=== PATIENT | male | born 1940 | race Caucasian/White ===

== ENCOUNTER 2017-12-25 23:57 | Inpatient (IN) ==
[2017-12-26] MEDS ORDERED: Aspirin 81 MG TAB.CHEW PO ONE (00:10)
[2017-12-26 00:24] LABS: Basophils % 0.1 %; Hematocrit 44.4 % (37.5-50.1); Hemoglobin 14.8 g/dL (12.9-16.9); Immature Granulocytes % 0.4 % (0-4); Lymphocytes # 2.4 K/mcL (0.6-4.6); Lymphocytes % 18.8 %; Mean Corpuscular HGB Conc 33.3 g/dL (31.6-35.5); Mean Corpuscular Hemoglobin 30.8 pg (28.0-33.3); Mean Corpuscular Volume 92.3 fL (83.0-100.0); Mean Platelet Volume 10.6 fL (9.4-12.4); Monocytes # 0.9 K/mcL (0.0-1.3); Monocytes % 6.6 %; Neutrophils # 9.5 K/mcL (1.6-8.9); Platelet Count 272 K/mcL (140-400); Red Blood Count 4.81 M/mcL (4.19-5.50); Red Cell Distribution Width 14.3 % (11.5-14.5); Segmented Neutrophils % 74.1 %
--- NOTE | 2017-12-26 00:24 | Emergency Department Note ---
Disposition Clinical Impression: New onset atrial fibrillation Disposition: Admitted As Inpatient Condition: Fair Time of Disposition: 06:54 General Adult HPI - General Chief complaint: ED Chest Pain Stated complaint: "Think I am having Heart Attack" Time Seen by Provider: 12/25/17 23:59 Source: patient Mode of arrival: EMS Limitations: no limitations Nursing Notes Reviewed: Yes Vital Signs Reviewed: Yes - History of Present Illness HPI Narrative: Patient is a 77-year-old male with a past medical history of diabetes, TIA, HTN , and NC with one cardiac stent presenting to the emergency department for evaluation of sudden onset dyspnea and chest pain that started approximately 2200 yesterday, 2.5 hours ago. The patient states that he took 2 of his nitroglycerin and called the squad and and route the patient states his chest pain resolved, however he continues to have shortness of breath. The patient states that his chest pain was substernal, tight, 5/10, no radiation and no nausea or diaphoresis. He states it feels very similar to when he has had a heart attack in the past and had a stent placed. States prior to this occurring at 20/200 he felt fine. Denies any history of atrial fibrillation. States she is recently and seen at [facility] and [place], [place]. There he was being evaluated for a chronic headache and vision changes in which they are doing a biopsy of his temporal artery to evaluate him for temporal arterial arteritis. They state that he has also been on daily steroids pending the results of this biopsy. Pain Scale: 0 - Related Data Allergies Allergy/AdvReac Type Severity Reaction Status Date / Time acetaminophen [From Vicodin] Allergy Headache Verified 12/26/17 04:44 hydrocodone [From Vicodin] Allergy Headache Verified 12/26/17 04:44 simvastatin Allergy Nausea Verified 12/26/17 04:44 All systems ED: reviewed and negative except as stated. Review of Systems: As Per HPI Constitutional: Denies: fever, chills Cardiovascular: Reports: chest pain, palpitations, dyspnea on exertion. Denies : edema, syncope, paroxysmal nocturnal dyspnea Respiratory: Reports: dyspnea. Denies: cough, wheezes, hemoptysis Gastrointestinal: Denies: abdominal pain, nausea, vomiting Musculoskeletal: Denies: back pain Past Medical History - Past Medical History Attestation: Yes The following information was validated with the patient. Medical history: Reports: diabetes, hypertension, myocardial infarction, TIA Psychiatric history: Reports: no psych history - Social History Smoking Status: Former smoker Smokeless Tobacco Status: No Alcohol use: Reports: none Drug use: Reports: none Physical Exam CONSTITUTIONAL: A&O X 3, heart rate is in the 150s and is showing an irregular rhythm on monitor. His blood pressure stable in the 150/90s. Currently 98% on 2 L nasal cannula oxygen. HEAD: Normocephalic; atraumatic EYES: PERRL, no scleral icterus NOSE: The nose is normal in appearance without rhinorrhea NECK: No JVD or distended neck veins RESP: Normal chest excursion with respiration; breath sounds clear and equal bilaterally; no wheezes, rhonchi, or rales CARD: Irregular rhythm, without murmurs, rub or gallop ABD: Non-distended; non-tender, soft, without rigidity, rebound or guarding,no pulsatile mass CHEST: No pain with palpation SKIN: Normal for age and race; warm and dry without diaphoresis ; no apparent lesions EXTREMITIES: Pulses are 2 plus and equal times 4 extremities, no calf muscle pain. Mild bilateral 1+ pitting edema. - General Limitations: no limitations General appearance: alert, in no apparent distress Course Course Narrative: Discussed with the patient plan at this times to start him on the Cardizem drip will be initiated with a bolus. After this patient's heart rate improved to the 90s. His symptoms improved. His lab work returned his d-dimer was elevated , troponin was 0.05 patient underwent a CTA of the chest to rule out pulmonary embolism. This is negative for pulmonary embolism. Patient was given a dose of Lovenox for anticoagulation for his atrial fibrillation and admitted to the hospitalist accepted by Dr. Arana. Vital Signs Temperature 98.2 F 12/26/17 00:04 Pulse Rate 152 12/26/17 00:04 Respiratory Rate 22 12/26/17 00:04 Blood Pressure 157/92 12/26/17 00:04 O2 Sat by Pulse Oximetry 94 12/26/17 00:04 Temperature 97.6 F 12/26/17 04:25 Pulse Rate 98 12/26/17 04:25 Respiratory Rate 16 12/26/17 04:25 Blood Pressure 139/90 12/26/17 04:25 O2 Sat by Pulse Oximetry 96 12/26/17 04:25 Oxygen Delivery Oxygen Delivery Nasal Cannula Medical Decision Making - Medical Records Medical records reviewed: Yes I reviewed the patient's medical records. - Lab Data Lab results reviewed: Yes I reviewed the patient's lab results. Result diagrams: 12/26/17 00:10 12/26/17 00:10 Lab Results 12/26/17 12/26/17 12/26/17 Range/Units 00:10 00:10 00:10 WBC 12.8 H (4.3-11.1) K/mcL RBC 4.81 (4.19-5.50) M/mcL Hgb 14.8 (12.9-16.9) g/dL Hct 44.4 (37.5-50.1) % MCV 92.3 (83.0-100.0) fL MCH 30.8 (28.0-33.3) pg MCHC 33.3 (31.6-35.5) g/dL RDW 14.3 (11.5-14.5) % Plt Count 272 (140-400) K/mcL MPV 10.6 (9.4-12.4) fL Immature Gran % 0.4 (0-4) % Seg Neutrophils % 74.1 % Lymphocytes % 18.8 % Monocytes % 6.6 % Eosinophils % 0.0 % Basophils % 0.1 % Neutrophils # 9.5 H (1.6-8.9) K/mcL Lymphocytes # 2.4 (0.6-4.6) K/mcL Monocytes # 0.9 (0.0-1.3) K/mcL Eosinophils # 0.0 (0.0-0.6) K/mcL Basophils # 0.0 (0.0-0.2) K/mcL PT 10.4 (9.4-12.1) Seconds INR 0.9 APTT 30.6 (26.0-36.0) Seconds D-Dimer 1148 H (0-500) ng/mLFEU Sodium (136-145) mEq/L Potassium (3.5-5.1) mEq/L Chloride (98-107) mEq/L Carbon Dioxide (23-29) mEq/L BUN (8-23) mg/dL Creatinine (0.70-1.30) mg/dL Est GFR ( Amer) (> 60) Est GFR (Non-Af Amer) (> 60) BUN/Creatinine Ratio (6-26) Glucose (70-105) mg/dL Calculated Osmolality (280-300) Calcium (8.6-10.3) mg/dL Troponin I (< 0.04) ng/mL B-Natriuretic Peptide 341 H (Less than 100) pg/mL 12/26/17 Range/Units 00:10 WBC (4.3-11.1) K/mcL RBC (4.19-5.50) M/mcL Hgb (12.9-16.9) g/dL Hct (37.5-50.1) % MCV (83.0-100.0) fL MCH (28.0-33.3) pg MCHC (31.6-35.5) g/dL RDW (11.5-14.5) % Plt Count (140-400) K/mcL MPV (9.4-12.4) fL Immature Gran % (0-4) % Seg Neutrophils % % Lymphocytes % % Monocytes % % Eosinophils % % Basophils % % Neutrophils # (1.6-8.9) K/mcL Lymphocytes # (0.6-4.6) K/mcL Monocytes # (0.0-1.3) K/mcL Eosinophils # (0.0-0.6) K/mcL Basophils # (0.0-0.2) K/mcL PT (9.4-12.1) Seconds INR APTT (26.0-36.0) Seconds D-Dimer (0-500) ng/mLFEU Sodium 138 (136-145) mEq/L Potassium 4.2 (3.5-5.1) mEq/L Chloride 102 (98-107) mEq/L Carbon Dioxide 29 (23-29) mEq/L BUN 20 (8-23) mg/dL Creatinine 0.95 (0.70-1.30) mg/dL Est GFR ( Amer) > 60 (> 60) Est GFR (Non-Af Amer) > 60 (> 60) BUN/Creatinine Ratio 21 (6-26) Glucose 156 H (70-105) mg/dL Calculated Osmolality 292 (280-300) Calcium 10.2 (8.6-10.3) mg/dL Troponin I 0.05 H* (< 0.04) ng/mL B-Natriuretic Peptide (Less than 100) pg/mL - Radiology Data Radiology results reviewed: Yes I reviewed the patient's radiology results. Chest X-Ray 12/26/17 00:10 IMPRESSION: No acute cardiopulmonary findings. D/ / Charly Millard / Charly Millard Interpreting Provider: Charly Millard Chest CTA 12/26/17 00:54 IMPRESSION: Negative for acute pulmonary embolism 14 mm solid nodule in the left lower lobe. Any comparison imaging would be helpful if available. Otherwise consider repeat CT chest in 3 months versus PET-CT or possible soft tissue sampling. Moderate emphysema with smoking-related airway inflammation. Moderate four-chamber cardiomegaly. Enlarged main pulmonary artery may be seen with pulmonary hypertension. RECOMMENDATIONS: Fleischner Society guidelines for follow-up and management of incidentally detected pulmonary nodules: Single Solid Nodule: Nodule size greater than 8 mm In a low-risk patient, consider CT at 3 months, PET/CT, or tissue sampling. In a high-risk patient, consider CT at 3 months, PET/CT, or tissue sampling. - Low risk patients include individuals with minimal or absent history of smoking and other known risk factors. - High risk patients include individuals with a history or smoking or known risk factors. Radiology 2017 http://pubs.rsna.org/doi/full/10.1148/radiol.[email or web address] D/ / Charly Millard / Charly Millard Interpreting Provider: Charly Millard - EKG Data EKG #1 EKG attestation: Yes I reviewed and interpreted this EKG. EKG results narrative: EKG done at 00:06 shows sinus tachycardia with an irregular rate at 136 bpm. We will axis. Consistent with atrial fibrillation. Right bundle branch block. Attestation Statement - Attestation Attestation: I examined this patient and my medical decision-making was reviewed with the Resident Physician. I agree with the documented findings, disposition and treatment plan as described except to the extent set forth below. Findings consistent with atrial fibrillation with rapid ventricular response. The patient did have elevated d-dimer and as a result head CT pulmonary embolism study which shows no evidence of pulmonary embolism. The patient did have elevated Chadds Vas score and ultimately Lovenox was administered. The patient is now rate controlled on diltiazem infusion. He also received aspirin. He will be admitted for further management of atrial fibrillation in the setting of dyspnea and chest pain. I spent greater than 35 minutes of critical care time resuscitating this acutely ill patient suffering from atrial fibrillation with rapid ventricular response. This was excluding billable procedures.
[2017-12-26 00:30] LABS: INR 0.9; Prothrombin Time 10.4 Seconds (9.4-12.1)
[2017-12-26 00:33] LABS: Activated Partial Thrombo Time 30.6 Seconds (26.0-36.0)
[2017-12-26 00:46] LABS: BUN/Creatinine Ratio 21 (6-26); Blood Urea Nitrogen 20 mg/dL (8-23); Calcium 10.2 mg/dL (8.6-10.3); Carbon Dioxide 29 mEq/L (23-29); Chloride 102 mEq/L (98-107); Glucose 156 mg/dL (70-105); Osmolality,Calculated 292 (280-300); Potassium 4.2 mEq/L (3.5-5.1); Sodium 138 mEq/L (136-145); eGFR For Non-African Americans > 60 (> 60)
[2017-12-26] MEDS ORDERED: Isovue-370 500 ML INFUS..BTL IV ONE (00:54)
[2017-12-26 00:55] LABS: Troponin I 0.05 ng/mL (< 0.04)
[2017-12-26] MEDS ORDERED: *HR* Enoxaparin 150 MG/ML SYRINGE SQ STA (01:27)
[2017-12-26] MEDS ORDERED: 0.9 % Sodium Chloride 500 ML ONE (04:31)
[2017-12-26] MEDS ORDERED: *HR* Dextrose 50 % in Water (Syg) 50 ML SYRINGE IVP PRN (06:18)
[2017-12-26] MEDS ORDERED: Dextrose Gel 15 GM/37.5 ML TUBE PO PRN ×2 (06:18)
[2017-12-26] MEDS ORDERED: traMADol 50 MG TABLET PO PRN (06:18)
[2017-12-26] MEDS ORDERED: Naloxone 0.4 MG/ML INJ IVP PRN (06:18)
[2017-12-26] MEDS ORDERED: D5% in Water 1,000 ML IVC PRN (06:18)
--- NOTE | 2017-12-26 06:30 | Internal Med History&Physical ---
Date of Encounter: 12/26/17 Time of Encounter: 06:00 Internal Medicine - H&P: HPI Chief complaint: chest pain; palpitations Admitted From: Emergency Dept Plans for Post Hospital Care: Home History of present illness: Mr. Gayle is a 77 year old male who presents with complaints of chest pain and palpitations tonight. Symptoms started around 10 PM. Symtpoms were similar to his prior heart attack, so he came to ER for evaluation. Workup in ER revealed patient to have new-onset atrial fibrillation and slight troponin elevation. He was subsequently admitted to hospitalist service. Upon my assessment of the patient, he is chest pain-free. Heart rate is still elevated but better controlled. Current heart rate is about 109. He denies any prior history of any dysrhythmia, particularly atrial fibrillation. He does admit to having had an [facility] about 5 years ago and has known coronary artery disease. He follows with cardiology at [facility], Dr. Cassidy. We have no old cardiac records here except for an old echo suggesting ischemic cardiopathy with an EF of 40%. He denies any prior history of heart failure. He denies any recent orthopnea, paroxysmal nocturnal dyspnea, weight gain, lower extremity edema, or progressive dyspnea. Of note, patient did have a temporal artery biopsy last week at [facility] for concern of possible temporal arteritis. He is on prednisone daily and awaiting biopsy results. Unfortunately, he does not know the dose of prednisone or any of his home cardiac medications. We have no list of medications. We have essentially no old records on file here at [place]. Patient denies any cough, congestion, fevers, wheezing, or shortness of breath. He does have COPD, but that has been under control lately. Past Med Surg Social Fam HX - Past Medical History Attestation: Yes The following information was validated with the patient. Source: patient, other (ER notes) Medical history: diabetes, hypertension, myocardial infarction, TIA Psychiatric history: anxiety, depression - Past Surgical History Surgical History: angioplasty/stent, orthopedic, other Additional surgical history: right rotator cuff repair - Social History Smoking Status: Former smoker Smokeless Tobacco Status: No Alcohol use: rarely Drug use: none Current living situation: Home, With Family Activity Level: Independent ambulation Recent Out of Country Travel Within the Last 8 Weeks: No - Family History Mother Age at : 66 Cause of : heart attack Hx Family Cardiac Disorders: Yes Hx Family Respiratory Disorders: Yes (emphysema) Hx Family Cancer: No Hx Family Genitourinary Disorders: No Father Age at : 57 Cause of : suicide Hx Family Cardiac Disorders: No Hx Family Respiratory Disorders: No Hx Family Cancer: No Hx Family GI Disorders: No Hx Family Genitourinary Disorders: No Hx Family Endocrine Disorder: No Hx Family Musculoskeletal Disorders: No Hx Family Neuromuscular Disorders: No Hx Family Neurologic Disorders: No Hx Family HEENT Disorders: No Hx Family Autoimmune Disorders: No Hx Family Reproductive Disorders: No Hx Family Psychosocial Disorders: No Hx Family Medical Disorders: No Internal Medicine - H&P: Meds 3 Allergy/AdvReac Type Severity Reaction Status Date / Time acetaminophen [From Vicodin] Allergy Headache Verified 12/26/17 04:44 hydrocodone [From Vicodin] Allergy Headache Verified 12/26/17 04:44 simvastatin Allergy Nausea Verified 12/26/17 04:44 - Constitutional Constitutional: fatigue, no chills, no fever(s) - EENT Eyes: no blurry vision, no change in vision Ears: no ear pain, no tinnitus Nose, mouth and throat: no nasal congestion, no sinus pressure, no sore throat - Cardiovascular Cardiovascular ROS IM: chest pain, diaphoresis, dyspnea, dyspnea on exertion, irregular heart rhythm, lightheadedness, orthopnea, palpitations, paroxysmal nocturnal dyspnea, no edema - Respiratory Respiratory: no cough, no chest congestion, no excessive phlegm production, no change in phlegm color - Gastrointestinal Gastrointestinal: no abdominal pain, no diarrhea, no hematemesis, no hematochezia, no melena, no vomiting - Genitourinary Genitourinary ROS male: no dysuria, no flank pain, no hematuria - Musculoskeletal Musculoskeletal ROS IM: no arthralgias, no back pain - Integumentary Integumentary IM: no rash, no jaundice - Neurological Neurological ROS: headache(s), no dizziness, no focal weakness, no frequent falls, no other visual disturbances - Psychiatric Psychiatric: no anxiety, no depression - Endocrine Endocrine IM: no cold intolerance, no heat intolerance, no polydipsia, no polyuria - Allergic/Immunologic Allergic/Immunologic: wheezing, no GI upset with certain foods - Constitutional Vitals: Temp Pulse Resp BP Pulse Ox 97.6 F 98 16 139/90 96 12/26/17 04:25 12/26/17 04:25 12/26/17 04:25 12/26/17 04:25 12/26/17 04:25 General appearance: Present: cooperative, A&O X 3, pleasant, no acute distress, answers questions appropriately Exam: see below - Head Head exam: Present: normal inspection - Eye Eye exam: Present: EOMI, PERRL. Absent: scleral icterus Pupils: Present: normal accommodation - ENT ENT exam: Present: mucous membranes dry, normal exam, normal oropharynx - Neck Neck exam general surgery: Present: full ROM, supple. Absent: tenderness, nuchal rigidity, thyromegaly - Respiratory Respiratory exam: Present: CTAB. Absent: chest wall tenderness, rales, respiratory distress, rhonchi, wheezes - Cardiovascular Cardiovascular exam: Present: distant heart sounds, irregular rhythm, tachycardia. Absent: diastolic murmur, systolic murmur - GI/Abdominal GI/Abdominal exam: Present: normal bowel sounds, soft. Absent: guarding, hepatomegaly, mass, splenomegaly, tenderness - Extremities Exam Extremities exam: Present: normal capillary refill, warm, radial pulses palpable and symmetrical. Absent: calf tenderness, pedal edema, tenderness - Back Exam Back exam: Absent: CVA tenderness (L), CVA tenderness (R) - Neurological Exam Neurological exam: Present: alert, CN II-XII intact, oriented X3, no focal deficits, strengths equal and symetr throughout - Psychiatric Psychiatric exam: Present: normal affect, normal mood - Skin Skin exam: Present: dry, intact, warm Internal Med - H&P Results - Labs CBC & Chem 7: 12/26/17 00:10 12/26/17 00:10 - EKG Data -: EKG Interpreted by Myself - EKG Data Prior EKG available for review: no EKG comments: 12/26/17 06:34 atrial fibrillation/RVR - Diagnostic Studies Chest x-ray Status: image reviewed by me (negative) - Assessment and plan (1) New onset atrial fibrillation Current Visit: Yes Status: Acute Assessment and plan: 1. Currently on Cardizem drip for rate control. 2. Will start heparin drip at 13:00; patient received a dose of Lovenox at ~ 01 :00 am today. 3. Will trend troponins and EKG's. 3. Consult cardiology. 4. Will order TSH. (2) Chest pain Current Visit: Yes Status: Acute Assessment and plan: 1. Patient with known CAD and + troponins. 2. Will trend troponins, obtain ECHO, and consult cardiology. 3. Currently chest pain free. 4. Resume home meds as appropriate once med list obtained and verified. Qualifiers: Chest pain type: chest pain due to myocardial ischemia Ischemic chest pain type: stable angina pectoris Qualified Code(s): I20.8 - Other forms of angina pectoris (3) History of temporal artery biopsy Current Visit: Yes Status: Acute Assessment and plan: 1. Awaiting biopsy results from [place] [place]. 2. Will place on Prednisone while waiting for biopsy results. Need to verify home prednisone dose. (4) IDDM (insulin dependent diabetes mellitus) Current Visit: Yes Status: Chronic Assessment and plan: 1. Will place on SSI. 2. Need to verify home med list and resume appropriate meds. (5) DVT prophylaxis Current Visit: Yes Status: Acute Assessment and plan: 1. Heparin drip -- ACS dose to start at 1300 today. 2. Patient received Lovenox dose at 1:00 am .
[2017-12-26 07:13] LABS: Hematocrit 43.1 % (37.5-50.1); Hemoglobin 14.1 g/dL (12.9-16.9); Mean Corpuscular HGB Conc 32.7 g/dL (31.6-35.5); Mean Corpuscular Hemoglobin 30.2 pg (28.0-33.3); Mean Corpuscular Volume 92.3 fL (83.0-100.0); Mean Platelet Volume 10.7 fL (9.4-12.4); Platelet Count 247 K/mcL (140-400); Red Blood Count 4.67 M/mcL (4.19-5.50); Red Cell Distribution Width 14.6 % (11.5-14.5)
[2017-12-26 07:19] LABS: Heparin anti-factor XA UFH 0.78 IU/mL (0.30-0.70)
[2017-12-26 07:20] LABS: Prothrombin Time 10.9 Seconds (9.4-12.1)
[2017-12-26] MEDS: Insulin LISPRO 300 UNITS/3 ML VIAL SQ SCH ×3 (09:15→17:53)
[2017-12-26] MEDS: predniSONE 20 MG TABLET PO SCH (09:20)
--- NOTE | 2017-12-26 09:48 | Cardiology Consult Note ---
Date of Encounter: 12/26/17 Time of Encounter: 09:46 Assessment and Plan (1) NSTEMI (non-ST elevated myocardial infarction) Current Visit: Yes Status: Acute ROSALVA 4, ho CAD PCI, c/b Afib, HD stable. S/p ASA 324, on heparin drip, age 77. P: pt agrees to proceed with [facility] plavix 75,will not load with plavix now given age. Will decide during LHC. ASA 81 qd Statin TTE awating home meds list (2) New onset atrial fibrillation Current Visit: Yes Status: Acute on heparin drip, rate ctr better on cardizem drip. will need warfarin vs NOAC on discharge rate control for now, if HF decompensation, will SMITH DCCV pending TTE (3) IDDM (insulin dependent diabetes mellitus) Current Visit: Yes Status: Chronic (4) HTN (hypertension) Current Visit: Yes Status: Chronic BP fluctuating, management per primary team Qualifiers: Hypertension type: essential hypertension Qualified Code(s): I10 - Essential (primary) hypertension (5) HFrEF (heart failure with reduced ejection fraction) Current Visit: Yes Status: Chronic Chronic, no acute decompensation, not fluid overload TTE, review home meds then decide on BB, ACEI, ald etc Qualifiers: Heart failure chronicity: chronic Qualified Code(s): I50.22 - Chronic systolic (congestive) heart failure (6) CAD (coronary artery disease) Current Visit: Yes Status: Acute see NSTEMI section. Qualifiers: Coronary Disease-Associated Artery/Lesion type: [place] artery [place] vs. transplanted heart: [place] heart Associated angina: with unstable angina Qualified Code(s): I25.110 - Atherosclerotic heart disease of [place] coronary artery with unstable angina pectoris Discussion w patient/family: The assessment and plan as outlined above was discussed with the patient and/or family members who expressed understanding and agreement. All questions were answered. Thank you for involving us in the care of your patient. Please call with any questions. History of Present Illness Consult date: 12/26/17 Requesting physician: Taylor Whitehead Consult reason: new afib,cp History of present illness: Mr. Gayle is a 77 year old male ho HI s/p PCI remote, HFrEF, HTN, DM, TIA, COPD P/w sudden onset of dyspnea followed by chest pressure last night, relieved by NTG SL#2. ECG Afib RVR, RBBB. Trop 0.05-2.4, BNP 341, TSH 1.6, GFR >60 Received ASA 324, heparin, dilt drip, HR 90s-120s Afib Currently no c/o, cp, dysnpea, palpitations. Discussed with pt, will proceed to [facility], GFR>60, no bleeding. Temporal artery biopsy last week at [facility] for concern of possible temporal arteritis, on prednisone daily and awaiting biopsy results. HI about 5 years ago and has known coronary artery disease. He follows with cardiology at [facility], Dr. Cassidy. 07/02/15 Impressions: Technically sub-optimal due to poor apical windows. Mild-moderate LV systolic dysfunction, estimated LVEF 40%. There is hypokinesis of the inferior and inferolateral kumar. Several myocardial segments were not adequately visualized. Mild asymmetric septal hypertrophy. No evidence of LVOT obstruction. Mild left ventricular diastolic dysfunction. Normal right ventricular structure and function. Mildly dilated left atrium. No significant valvular dysfunction. Mild pulmonary hypertension. Estimated RVSP = 37 mmHg. Consider repeating a limited echo with echo contrast or using an alternative imaging modality to better evaluate LVEF if clinically indicated. Past Med Surg Social Fam HX - Past Medical History Medical history: diabetes, hypertension, myocardial infarction, TIA Psychiatric history: no psych history - Past Surgical History Surgical History: angioplasty/stent, orthopedic, other Additional surgical history: right rotator cuff repair - Social History Smoking Status: Former smoker Smokeless Tobacco Status: No Alcohol use: none Drug use: none - Family History Mother Age at : 66 Cause of : heart attack Hx Family Cardiac Disorders: Yes Hx Family Respiratory Disorders: Yes (emphysema) Hx Family Cancer: No Hx Family Genitourinary Disorders: No Father Age at : 57 Cause of : suicide Hx Family Cardiac Disorders: No Hx Family Respiratory Disorders: No Hx Family Cancer: No Hx Family GI Disorders: No Hx Family Genitourinary Disorders: No Hx Family Endocrine Disorder: No Hx Family Musculoskeletal Disorders: No Hx Family Neuromuscular Disorders: No Hx Family Neurologic Disorders: No Hx Family HEENT Disorders: No Hx Family Autoimmune Disorders: No Hx Family Reproductive Disorders: No Hx Family Psychosocial Disorders: No Hx Family Medical Disorders: No Medications and Allergies Aspirin [Adult Aspirin] 81 mg PO DAILY 12/26/17 [History] 3 Allergy/AdvReac Type Severity Reaction Status Date / Time acetaminophen [From Vicodin] Allergy Headache Verified 12/26/17 04:44 hydrocodone [From Vicodin] Allergy Headache Verified 12/26/17 04:44 simvastatin Allergy Nausea Verified 12/26/17 04:44 All Systems Review: The remainder of the systems were reviewed and are negative - Cardiovascular Cardiovascular: as per HPI - Hematological/Lymphatic Hematologic/Lymphatic: no easy bleeding Physical Examination Vital Signs, Last 4 Hours Temp Pulse Resp BP Pulse Ox 12/26/17 08:25 121 16 133/99 96 12/26/17 07:25 97.5 F L 102 21 130/118 97 Other: General: NAD, AAO, cogent HEENT: anicteric Neck: no JVD, no bruits Chest: CTA B/L, no W/R/C Heart: IR, S1/S2, no S3/S4, no M/G/R Abdominal: BS +, soft, ND, NT Peripheral Pulses: radial pulse 2+ B/L, DP 2+ B/L Skin/Extremities: no cyanosis, trace LE edema Neurological: grossly non-focal. Results 12/26/17 06:43 12/26/17 00:10 Lab Results 12/26/17 12/26/17 12/26/17 06:43 06:43 06:43 WBC 12.9 H Hgb 14.1 Hct 43.1 Plt Count 247 INR 1.0 Troponin I 2.40 H* TSH 12/26/17 06:43 WBC Hgb Hct Plt Count INR Troponin I TSH 1.630 - Imaging and Cardiology Chest Xray: report reviewed Echo: report reviewed Other Results: Tele reviewd - EKG Interpretation EKG results cardiology: right bundle branch block (Afib) Consult Discharge Plan - Plan [facility]errals: [facility] [Primary Care Provider[facility] -
--- NOTE | 2017-12-26 10:50 | Cardiology Consult Note ---
Date of Encounter: 12/26/17 Time of Encounter: 10:00 Assessment and Plan (1) NSTEMI (non-ST elevated myocardial infarction) Current Visit: Yes Status: Acute ROSALVA 4, ho CAD PCI, c/b Afib, HD stable. S/p ASA 324, on heparin drip, age 77. P: pt agrees to proceed with C plavix 75,will not load with plavix now given age. Will decide during C. ASA 81 qd Statin TTE awating home meds list (2) New onset atrial fibrillation Current Visit: Yes Status: Acute on heparin drip, rate ctr better on cardizem drip. will need warfarin vs NOAC on discharge rate control for now, if HF decompensation, will SMITH DCCV pending TTE (3) IDDM (insulin dependent diabetes mellitus) Current Visit: Yes Status: Chronic (4) HTN (hypertension) Current Visit: Yes Status: Acute (5) HFrEF (heart failure with reduced ejection fraction) Current Visit: Yes Status: Acute Chronic, no acute decompensation, not fluid overload TTE, review home meds then decide on BB, ACEI, ald etc (6) CAD (coronary artery disease) Current Visit: Yes Status: Acute see NSTEMI section. Qualifiers: Coronary Disease-Associated Artery/Lesion type: [place] artery [place] vs. transplanted heart: [place] heart Associated angina: with unstable angina Qualified Code(s): I25.110 - Atherosclerotic heart disease of [place] coronary artery with unstable angina pectoris Discussion w patient/family: The assessment and plan as outlined above was discussed with the patient and/or family members who expressed understanding and agreement. All questions were answered. Thank you for involving us in the care of your patient. Please call with any questions. History of Present Illness History of present illness: Mr. Gayle is a 77 year old male Past Med Surg Social Fam HX - Past Medical History Medical history: diabetes, hypertension, myocardial infarction, TIA Psychiatric history: no psych history - Past Surgical History Surgical History: angioplasty/stent, orthopedic, other Additional surgical history: right rotator cuff repair - Social History Smoking Status: Former smoker Smokeless Tobacco Status: No Alcohol use: none Drug use: none - Family History Mother Age at : 66 Cause of : heart attack Hx Family Cardiac Disorders: Yes Hx Family Respiratory Disorders: Yes (emphysema) Hx Family Cancer: No Hx Family Genitourinary Disorders: No Father Age at : 57 Cause of : suicide Hx Family Cardiac Disorders: No Hx Family Respiratory Disorders: No Hx Family Cancer: No Hx Family GI Disorders: No Hx Family Genitourinary Disorders: No Hx Family Endocrine Disorder: No Hx Family Musculoskeletal Disorders: No Hx Family Neuromuscular Disorders: No Hx Family Neurologic Disorders: No Hx Family HEENT Disorders: No Hx Family Autoimmune Disorders: No Hx Family Reproductive Disorders: No Hx Family Psychosocial Disorders: No Hx Family Medical Disorders: No Medications and Allergies Aspirin [Adult Aspirin] 81 mg PO DAILY 12/26/17 [History] 3 Allergy/AdvReac Type Severity Reaction Status Date / Time acetaminophen [From Vicodin] Allergy Headache Verified 12/26/17 04:44 hydrocodone [From Vicodin] Allergy Headache Verified 12/26/17 04:44 simvastatin Allergy Nausea Verified 12/26/17 04:44 All Systems Review: The remainder of the systems were reviewed and are negative Physical Examination Vital Signs, Last 4 Hours Temp Pulse Resp BP Pulse Ox 12/26/17 08:25 121 16 133/99 96 12/26/17 07:25 97.5 F L 102 21 130/118 97 Results 12/26/17 06:43 12/26/17 00:10 Lab Results 12/26/17 12/26/17 12/26/17 06:43 06:43 06:43 WBC 12.9 H Hgb 14.1 Hct 43.1 Plt Count 247 INR 1.0 Troponin I 2.40 H* TSH 12/26/17 06:43 WBC Hgb Hct Plt Count INR Troponin I TSH 1.630 Consult Discharge Plan - Plan [facility]: [facility] [Primary Care Provider] -
[2017-12-26] MEDS ORDERED: *HR* Heparin 5,000 UNIT/ML VIAL IVP ONE (13:30)
[2017-12-26] MEDS ORDERED: *HR* Heparin 5,000 UNIT/ML VIAL IVP PRN ×2 (13:30)
[2017-12-26] MEDS ORDERED: Heparin 25,000 UNIT/500 ML D5W 25,000 UNIT/500 ML BAG IVC SCH (13:30)
[2017-12-26] MEDS ORDERED: *HR* FentaNYL (PF) 100 MCG/2 ML VIAL ONE (13:37)
[2017-12-26] MEDS ORDERED: 0.9 % Sodium Chloride 2,000 ML ONE (13:37)
[2017-12-26] MEDS ORDERED: *HR* Heparin 10,000 UNIT/10 ML VIAL ONE (13:38)
[2017-12-26] MEDS ORDERED: Nitroglycerin 1,000 MCG/10 ML VIAL IV ONE (13:38)
[2017-12-26] MEDS ORDERED: ISOVUE-370 200 ML INFUS..BTL IV ONE (13:38)
[2017-12-26] MEDS ORDERED: Heparin 1,000 UNITS/500 mL 500 ML ONE (13:38)
--- NOTE | 2017-12-26 13:38 | Pre-Sedation Evaluation ---
Pre-sedation evaluation - Pre-sedation checklist Date of procedure: 12/26/17 Procedure: heart cath Recent Vitals: Last Vital Signs Temp 97.8 F 12/26/17 12:12 Pulse 105 12/26/17 12:12 Resp 21 12/26/17 12:12 BP 140/92 12/26/17 12:12 Pulse Ox 94 12/26/17 12:12 H&P (including ROS) documented in medical record: Yes Previous reaction to sedatives/anesthetics: No Dietary Status: NPO after Midnight Dentition: No loose teeth or bridges ASA Classification *see protocol: CLASS II-Mild systemic disease Cardiac Registry (Cardio Only) - Functional Capacity Functional Capacity: >=4 METS with symptoms - Clincal Frailty Scale Clinical Frailty Scale: Vulnerable
[2017-12-26] MEDS ORDERED: *HR* Midazolam HCl 2 MG/2 ML VIAL ONE (13:40)
--- NOTE | 2017-12-26 14:34 | Invasive Diagnostic Lab Proc ---
Name: Sekou Gayle Date of Study: 12/26/2017 Date: 1940 Ht: 70.1in Medical Record#: [id number] Age: 77 Wt: 297.62lb Gender: Male BSA: 2.47 Order #: [id number] BMI: 42.61 Physicians Procedure Physician: Ricky Ervin MD Referring MD: Referring MD: Staff Name Position Time In Verena Pickering RT (R) Scrub 01:48 PM Leticia Martinez RN Utility Pipe Layer 01:48 PM Siri Hilario RT (R) Monitor 01:48 PM Indications Indication Non-Stemi Procedures Performed Procedure L HRT ARTERY/VENTRICLE ANGIO Pre-Procedure Checklist Informed consent is complete signed and on chart. H&P is on chart. ID band is on and ID verified with patient. Patient NPO for procedure The procedure was described for the patient and questions were answered. Blood Pressure: 138/108 ECG is on chart. Rhythm: Sinus Tachycardia Plan of Care Patient will tolerate the procedure without complications. Adequate level of comfort will be maintained. Hemodynamics will remain stable Patient will recover from procedure without complications. Respiratory function will be maintained. Cardiac rhythm will remain stable. Patient temperature will be maintained. Patient and/or family have verbalized understanding of the procedure. Patient Education Chief Complaint/Reason for Test: Cardiac Cath Developmental Category: Geriatric (65+ years) Developmentally Appropriate for Age: Yes Learning Barriers: None Education Needs: Procedure Education Method: Verbal Information Taught: Cardiac Cath Educational Evaluation: Able to repeat information Intravenous Access Time IV Size Location DC'd Fluid/Drip Rate Units RN 01:47 PM 18g 1 /" Patent On Arrival Lt Antecubital 0.9NaCl Leticia Martinez RN Allergies hydrocodone acetaminophen simvastatin Vital Signs Time BP (mmHg) HR (bpm) O2 Sat. RR (bpm) LOC 01:48 PM / % 5 = Fully awake and oriented or at pre-proc level 01:48 PM / % 4 = Oriented but drowsy 02:03 PM / % 4 = Oriented but drowsy 01:50 PM 138 / 108 109 90 % 01:56 PM 172 / 110 108 91 % 16 02:00 PM 156 / 107 146 91 % 14 02:06 PM 129 / 94 120 88 % 11 02:11 PM 146 / 114 154 88 % 16 02:15 PM 157 / 89 122 90 % 12 Procedural Medications Time Medication Dose Units Method Given By 02:00 PM Oxygen 2 L/min nasal cannula Leticia Martinez RN 02:00 PM Versed 1 mg Intravenous Leticia Martinez RN 02:00 PM Fentanyl 50 mcg Intravenous Leticia Martinez RN 02:01 PM Lidocaine 2% 10 ml Subcutaneous Ricky Ervin MD 02:09 PM Oxygen 3 L/min nasal cannula Leticia Martinez RN 02:10 PM Oxygen 4 L/min nasal cannula Leticia Martinez RN ASA Classification: CLASS II- Mild systemic disease (i.e. well-controlled diabetes, hypertension, asthma, cigarette smoking) Bakari Score Preprocedure Postprocedure Activity 2- Moves 4 extremities sustained head lift Activity 2- Moves 4 extremities sustained head lift Circulation 2- SBP +/= 20 points of pre-anesthetic level Circulation 2- SBP +/= 20 points of pre-anesthetic level Consciousness 2- Awake and alert oriented x 3 Consciousness 2- Awake and alert oriented x 3 O2 Saturation 2- Able to maintain O2 satruation of 92% on room air O2 Saturation 2- Able to maintain O2 satruation of 92% on room air Respiratory 2- Able to deep breathe and cough well Respiratory 2- Able to deep breathe and cough well Total Score 10 Total Score 10 Contrast Agent: Isovue Diagnostic Contrast: 46 ml Total Contrast: 46 ml Fluoro Dose: 7394 mGy Procedure Log Time Note Enter By 01:48 PM Pt arrived to [employer] [employer] 2 at 13:48 twilson :48 PM Physician arrived 13:48 twilson :48 PM Meet and greet completed :48 PM Sign in performed according to hospital policy. :48 PM Procedure start 13:48 :48 PM Time: 13:48 Patient comfortable and pain free: Yes :48 PM Time: 13:48LOC: 5 = Fully awake and oriented or at pre-proc level twilson :48 PM Patient charges- Angio tray pack, Navilyst 3mm J, Pulse Oximetry and ACIST tubing and transducer twilson :48 PM Verena Pickering RT (R) Position: Scrub Time in: 13:48 tw:48 PM Leticia Martinez RN Position: Utility Pipe Layer Time in: 13:48 ilson :48 PM Siri Hilario (R) Position: Monitor Time in: 13:48 twilson 01:48 PM Case Delayed no twilson :48 PM CathStat 01:49 PM Vitals capture started with the following parameters, Patient=Adult, Interval=5 min, Initial Svwyvqid=786 mmHg, Deflation Rate=5 mmHg, Cuff placed on Right Arm 01:49 PM Vitals capture started with the following parameters, Patient=Adult, Interval=5 min, Initial Brmttnko=548 mmHg, Deflation Rate=5 mmHg, Cuff placed on Right Arm 01:50 PM DJ=530 bpm, IKTP=690/108 mmhg, SpO2=90.0 % 01:55 PM Recorded ECG: ID=[id number] Condition=Condition 1 01:56 PM KC=371 bpm, OGBM=460/110 mmhg, SpO2=91.0 %, Resp=16 B/min 01:57 PM Pressure channel 1 zeroed. 01:58 PM Hair removed from procedure site in procedure lab using clippers. Bilateral groin prepped with Chloraprep by Siri Hilario (R), then patient was draped. Skin intact. twilson :58 PM ASA Class CLASS II- Mild systemic disease (i.e. well-controlled diabetes, hypertension, asthma, cigarette smoking) twilson 02:00 PM Time out performed according to hospital policy twilson 02:00 PM Time: 14:00 Oxygen on at 2 L/min per nasal cannula by Leticia Martinez RN twmary 02:00 PM Time: 14:00 Versed 1 mg Intravenous Given by Lteicia Martinez RN 02:00 PM Time: 14:00 Fentanyl 50 mcg Intravenous Given by Leticia Martinez RN twmary 02:00 PM FA=799 bpm, FPCK=368/107 mmhg, SpO2=91.0 %, Resp=14 B/min 02:01 PM Pressure channel 1 zeroed. 02:01 PM Time: 14:01 10 ml Lidocaine 2% to right groin Subcutaneous Given by Ricky Ervin MD twmary 02:02 PM Micro-Introducer Kit utilized for sheath placement twilson 02:03 PM Time: 13:48 Patient comfortable and pain free: Yes twmary 02:03 PM Time: 13:48LOC: 4 = Oriented but drowsy twilson 02:03 PM Isovue 370 - 200ml contrast [address] Ervin. twilson 02:03 PM Access obtained by percutaneous puncture. 6Fr 10cm Terumo [place] sheath placed in right Femoral artery. [id number] twilson 02:04 PM Pressure channel 1 zeroed. 02:04 PM 5Fr FR 4 catheter inserted over the wire DNC twilson 02:04 PM Wire removed twilson 02:06 PM RCA angiography performed in multiple views. twilson 02:06 PM Recorded Pressure: Ao, ME=354, Condition=Condition 1 (Aorta) Ao 117/87/102 02:06 PM CP=170 bpm, MZVW=632/94 mmhg, SpO2=88.0 %, Resp=11 B/min 02:06 PM Wire reinserted. twilson 02:06 PM Catheter removed twilson 02:06 PM 5Fr FL 4 catheter inserted over the wire DN twilson 02:07 PM Wire removed twilson 02:07 PM LCA angiography performed in multiple views. twilson 02:07 PM Recorded Pressure: Ao, GL=302, Condition=Condition 1 (Aorta) Ao 117/91/103 02:08 PM Recorded Pressure: Ao, LL=814, Condition=Condition 1 (Aorta) Ao 114/79/95 02:09 PM Recorded Pressure: Ao, HG=372, Condition=Condition 1 (Aorta) Ao 110/80/94 02:09 PM Time: 14:09 Oxygen on at 3 L/min per nasal cannula by Leticia Martinez RN twilson 02:10 PM Time: 14:10 Oxygen on at 4 L/min per nasal cannula by Leticia Martinez RN twilson 02:10 PM Wire reinserted. twilson 02:11 PM VY=958 bpm, ZNVH=146/114 mmhg, SpO2=88.0 %, Resp=16 B/min 02:11 PM Catheter removed twilson 02:11 PM 5Fr Pigtail catheter inserted over the wire DN twilson 02:11 PM Catheter selectively placed in left ventricle twilson 02:11 PM Wire removed, intact. twilson 02:12 PM Recorded Pressure: LV, YT=224, Condition=Condition 1 (Left Ventricle) LV 111/30/35 02:12 PM Recorded Pressure: LV, Ao, IR=936, Condition=Condition 1 (Left Ventricle) LV 114/39/46, (Aorta) Ao 122/86/102 02:14 PM Wire reinserted. twilson 02:14 PM Wire and catheter removed, intact. twilson 02:14 PM Pressures only. No LV injection. twilson 02:14 PM Coronary Dominance: right twilson 02:15 PM Lesion found in Mid RCA. Pre Stenosis: 99 Pre ROSALVA Flow: twilson 02:15 PM Lesion found in Distal RCA. Pre Stenosis: 100 Pre ROSALVA Flow: twilson 02:15 PM Right Coronary, Right Posterior Descending Arteries with Right Posterolateral and Acute Marginal branches with 100 % stenosis. If graft is supplying this area, 0 % stenosis twilson 02:15 PM Lesion found in Proximal LAD. Pre Stenosis: 20 Pre ROSALVA Flow: twilson 02:15 PM QP=821 bpm, EAZV=281/89 mmhg, SpO2=90.0 %, Resp=12 B/min 02:15 PM Lesion found in Mid LAD. Pre Stenosis: 60. Pre ROSALVA Flow: twilson 02:15 PM Proximal Left Anterior Descending Coronary Artery with 20% stenosis. If graft is supplying this territory, 0 % stenosis. twilson 02:15 PM Mid/Distal Left Anterior Descending Coronary Artery and diagonal branches with 60% stenosis. If graft is supplying this area, 0 % stenosis twilson 02:16 PM Lesion found in 1st Marginal. Pre Stenosis: 25 Pre ROSALVA Flow: twilson 02:16 PM Circumflex, Obtuse Marginal, Left Posterior Descending, and Left Posterolateral Coronary Arteries with 25 % stenosis. If graft is supplying this area, 0 % stenosis twilson 02:16 PM Procedure completed at 14:16 12/26/2017 twilson 02:16 PM Did you address ROSALVA flow and Dominance? Yes twilson 02:18 PM Sign out completed: Radiation Dose 651.26 mGy, 7393.67 cGy/cm2 Fluoro Time: 1.8 Isovue 370 - 200ml contrast 46 ml given by Ricky Ervin MD. Complications: NoneCardiac Rehab Consult needed: NoConfirmed administered medications: Yes twilson 02:18 PM Isovue 370 - 200ml,1 Bottle(s) used. twilson 02:18 PM Time: 14:03LOC: 4 = Oriented but drowsy twilson 02:18 PM Time: 14:03 Patient comfortable and pain free: Yes twilson 02:18 PM Arterial sheath pulled, Mynx closure device used and was Successful [id number] S/N. twilson 02:19 PM Estimated Blood Loss: minimal twilson 02:19 PM Post ECG Sinus Tachycardia twilson 02:19 PM Post Blood Pressure 157/89 twilson 02:20 PM 14:20 Post Pulses Bilateral DP & PT 2+ twilson 02:20 PM 14:20 Post Pulses Bilateral radial 2+ twilson 02:20 PM Information taught Cardiac Cath and Mynx twilson 02:20 PM Education needs Procedure, Plan of Care, and Responsibilities of Patient in Care twilson 02:20 PM Learning barriers :None twilson 02:20 PM Education Methods Verbal twilson 02:20 PM Education evaluation Able to repeat information twilson 02:21 PM Site status No bleeding/hematoma - Rt Groin as reported by Verena Pickering RT (R) at 14:20 twilson 02:21 PM Opsite applied twilson 02:21 PM Family placed in consult room. twilson 02:22 PM Report given to Anita BELLA Pt taken to E Room #24. 14:21 twilson 02:25 PM Patient out of room: 14:25 twilson Complications Complication None Hemodynamics Pressures Site Systolic/A Wave Diastolic/V Wave Mean AO 117 87 102 AO 117 91 103 AO 114 79 95 AO 110 80 94 LV 111 30 35 LV 114 39 46 AO 122 86 102 Post Procedure Information Blood Pressure: 157/89 mmHg Rhythm: Sinus Tachycardia Post procedural instructions were not given Closure Device Time Device Success/Fail 12/26/2017 2:23:00 PM MynxGrip Successful Site Checks Time Location Status Staff Sheath In? Note 02:20 PM Rt Groin No bleeding/hematoma Verena Pickering RT (R) Pulses Time Site Pre-Procedure Post-Procedure Note 12/26/2017 1:47:00 PM Bilateral DP & PT 2+ 12/26/2017 1:47:00 PM Bilateral radial 2+ 2:20:00 PM Bilateral DP & PT 2+ 2:20:00 PM Bilateral radial 2+ Updated by Siri Hilario RT (R) on 12/26/2017 2:29:30 PM electronically signed on 12/26/2017 2:30:00 PM with status of Final
--- NOTE | 2017-12-26 14:54 | Event Note ---
Date of Encounter: 12/26/17 Time of Encounter: 09:00 77 year old male with h/o- COPD, hypertension, diabetes, CAD, admitted with chest pain and shortness of breath. Seen and examined at bedside. Feels better, resolved symptoms. Has chronic leg swelling. Atrial fibrillation with rapid ventricular response-started on IV Cardizem drip for rate control, currently better controlled. Cardiology consult. Follow-up transthoracic echocardiogram. NSTEMI- continue Telemetry monitoring; serial troponins trending up to 2.40; f/ up Cardiology recommendations, possible [facility] today; continue anticoagulation with IV Heparin drip, resume home meds- ASA, statin, beta shelley; Other problems- COPD, chronic respiratory failure Essential HTN Hyperlipidemia DM- Tyope 2, on insulin at home CAD
[2017-12-26] MEDS: Aspirin Enteric Coated 81 MG Tablet PO SCH (15:28)
[2017-12-26] MEDS ORDERED: Perflutren Lipid Microsphere 1.3 ML in 0.9 % Sodium Chloride 8.7 ML IVP ONE (19:58)
[2017-12-26] MEDS: Metoprolol XL (24 HR) Succ 50 MG TAB.ER.24H PO SCH (21:00)
[2017-12-26] MEDS: Budesonide/Formoterol 160/4.5 1 PUFF INH IH SCH (22:32)
[2017-12-27 04:18] LABS: Basophils % 0.2 %; Eosinophils % 0.2 %; Hematocrit 42.9 % (37.5-50.1); Hemoglobin 13.9 g/dL (12.9-16.9); Immature Granulocytes % 0.5 % (0-4); Lymphocytes # 2.9 K/mcL (0.6-4.6); Mean Corpuscular HGB Conc 32.4 g/dL (31.6-35.5); Mean Corpuscular Hemoglobin 29.9 pg (28.0-33.3); Mean Corpuscular Volume 92.3 fL (83.0-100.0); Mean Platelet Volume 10.6 fL (9.4-12.4); Monocytes % 7.5 %; Neutrophils # 9.2 K/mcL (1.6-8.9); Platelet Count 259 K/mcL (140-400); Red Blood Count 4.65 M/mcL (4.19-5.50); Red Cell Distribution Width 14.8 % (11.5-14.5); Segmented Neutrophils % 69.6 %
[2017-12-27 04:40] LABS: Alanine Aminotransferase 15 Units/L (7-52); Albumin 3.4 g/dL (3.5-5.7); Albumin/Globulin Ratio 1.3 (1.1-2.2); Alkaline Phosphatase 47 Units/L (34-104); Aspartate Amino Transferase 14 Units/L (13-39); BUN/Creatinine Ratio 22 (6-26); Bilirubin,Total 0.6 mg/dL (0.3-1.0); Blood Urea Nitrogen 20 mg/dL (8-23); Calcium 9.4 mg/dL (8.6-10.3); Carbon Dioxide 30 mEq/L (23-29); Chloride 100 mEq/L (98-107); Cholesterol 120 mg/dL (< 200); Globulin 2.7 g/dL (2.4-3.5); Glucose 142 mg/dL (70-105); HDL Cholesterol 40 mg/dL (40-59); LDL Cholesterol,Calculated 59 mg/dL (0-99); Magnesium 1.9 mg/dL (1.6-2.6); Osmolality,Calculated 289 (280-300); Potassium 4.3 mEq/L (3.5-5.1); Sodium 137 mEq/L (136-145); Total Protein 6.1 g/dL (6.4-8.9); Triglycerides 105 mg/dL (< 150); eGFR For Non-African Americans > 60 (> 60)
[2017-12-27] MEDS: Insulin LISPRO 300 UNITS/3 ML VIAL SQ SCH ×3 (08:07→17:20)
[2017-12-27] MEDS: predniSONE 20 MG TABLET PO SCH (08:13)
[2017-12-27] MEDS: Lisinopril 20 MG TABLET PO SCH (08:14)
[2017-12-27] MEDS: Metoprolol XL (24 HR) Succ 50 MG TAB.ER.24H PO SCH ×2 (08:14→20:27)
[2017-12-27] MEDS: Aspirin Enteric Coated 81 MG Tablet PO SCH (08:14)
--- NOTE | 2017-12-27 09:44 | Cardiology Progress Note ---
Date of Encounter: 12/27/17 Time of Encounter: 09:44 Assessment and Plan (1) New onset atrial fibrillation Current Visit: Yes Status: Acute rate ctr ok on cardiazem 5mg/h, home toprol 50 bid, on heparin drip. TSH nl - increase toprol to 75 BID with tapering off cardizem drip for rate ctr - c/w heparin drip till starting xarelto this pm - TTE pending - plan SMITH DCCV am if still in Afib, NPO after midnight (2) NSTEMI (non-ST elevated myocardial infarction) Current Visit: Yes Status: Acute LHC [employer] CLE[employer]ER of RCA stent, moderate LAD dz. likely type II NSTEMI triggered by Afib RVR d/c plavix, c/w ASA no need for cardiac rehab (3) IDDM (insulin dependent diabetes mellitus) Current Visit: Yes Status: Chronic (4) HTN (hypertension) Current Visit: Yes Status: Chronic BP fluctuating, will up toprol, may need up on meredith too Qualifiers: Hypertension type: essential hypertension Qualified Code(s): I10 - Essential (primary) hypertension (5) HFrEF (heart failure with reduced ejection fraction) Current Visit: Yes Status: Chronic no decompensation, euvolemia pending TTE up toprol to 75 bid c/w meredith 20, may nned up to 30 am Qualifiers: Heart failure chronicity: chronic Qualified Code(s): I50.22 - Chronic systolic (congestive) heart failure (6) CAD (coronary artery disease) Current Visit: Yes Status: Acute Occluded distal RCA and mid RCA stent, Moderate disease in the mid LAD c/w ASA, statin Qualifiers: Coronary Disease-Associated Artery/Lesion type: [place] artery [place] vs. transplanted heart: [place] heart Associated angina: with unstable angina Qualified Code(s): I25.110 - Atherosclerotic heart disease of [place] coronary artery with unstable angina pectoris Discussion w patient/family: The assessment and plan as outlined above was discussed with the patient and/or family members who expressed understanding and agreement. All questions were answered. Thank you for involving us in the care of your patient. Please call with any questions. Subjective Principal diagnosis: AFIB Interval history: pt feels better, no cp, dyspnea, palpitations LHC occluded RCA stent good collaterals, moderate LAD dz. TTE pending. trop downtrending. Afib rate ctr ok 80s-110s on dilt, heparin drip [facility] 12/26/17 Impressions: There is severe one vessel coronary artery disease. There are good quality left to right collateral vessel/vessels. Occluded distal RCA and mid RCA stent Moderate disease in the mid LAD Objective Vital Signs, Last 4 Hours Temp Pulse Resp BP Pulse Ox 12/27/17 07:45 97.6 F 105 16 145/111 94 Other: General: NAD, AAO, cogent HEENT: anicteric Neck: no JVD Chest: CTA B/L, no W/R/C Heart: IR, S1/S2, no S3/S4,*no M/G/R Abdominal: BS +, soft, ND, NT Peripheral Pulses: radial pulse 2+ B/L Skin/Extremities: no cyanosis, no LE edema, [facility] entry site R-groin no hematoma Neurological: grossly non-focal. Results 12/27/17 03:53 12/27/17 03:53 Lab Results 12/26/17 12/27/17 12/27/17 18:22 03:53 03:53 WBC 13.2 H Hgb 13.9 Hct 42.9 Plt Count 259 Sodium 137 Potassium 4.3 Chloride 100 Carbon Dioxide 30 H BUN 20 Creatinine 0.89 Glucose 142 H Calcium 9.4 Magnesium 1.9 Total Bilirubin 0.6 AST 14 ALT 15 Alkaline Phosphatase 47 Troponin I 1.61 H* - Imaging and Cardiology Echo: pending Cardiac cath: report reviewed Holter: other (Tele reviewed) Consult Discharge Plan - Plan [facility]errals: [facility] [Primary Care Provider] -
[2017-12-27] MEDS: Budesonide/Formoterol 160/4.5 1 PUFF INH IH SCH (10:28)
[2017-12-27] MEDS ORDERED: Metoprolol XL (24 HR) Succ 25 MG TAB.ER.24H PO ONE (10:49)
[2017-12-27] MEDS ORDERED: *HR* Heparin 5,000 UNIT/ML VIAL IVP ONE (11:16)
[2017-12-27] MEDS ORDERED: *HR* Heparin 5,000 UNIT/ML VIAL IVP PRN ×2 (11:16)
[2017-12-27 11:40] LABS: Hematocrit 46.3 % (37.5-50.1); Hemoglobin 15.3 g/dL (12.9-16.9); Mean Corpuscular Hemoglobin 31.1 pg (28.0-33.3); Mean Corpuscular Volume 94.1 fL (83.0-100.0); Mean Platelet Volume 10.9 fL (9.4-12.4); Platelet Count 256 K/mcL (140-400); Red Blood Count 4.92 M/mcL (4.19-5.50); Red Cell Distribution Width 14.6 % (11.5-14.5)
[2017-12-27 11:44] LABS: INR 0.9; Prothrombin Time 10.6 Seconds (9.4-12.1)
[2017-12-27 11:47] LABS: Activated Partial Thrombo Time 32.5 Seconds (26.0-36.0)
[2017-12-27] MEDS: Heparin 25,000 UNIT/500 ML D5W 25,000 UNIT/500 ML BAG IVC SCH (12:03)
--- NOTE | 2017-12-27 16:08 | Internal Med Progress Note ---
Hospitalist Progress Note - Encounter Date of Encounter: 12/27/17 Time of Encounter: 09:00 - Subjective Interval History: Patient denies chest pain or shortness of breath. Had LHC yesterday through right groin, denies abd/groin pain. - Exam Vitals: Temp Pulse Resp BP Pulse Ox 97.6 F 114 16 141/102 92 12/27/17 11:30 12/27/17 11:30 12/27/17 11:30 12/27/17 11:30 12/27/17 11:30 Exam: Patient is awake alert oriented 3, in no acute distress HEENT: NC/AT, PERRL Neck: Supple, no JVD Lungs: CTA b/l Heart: S1S2, irregularly irregular Abd: Soft, NT Ext: No pedal edema. Neuro: No focal deficit. - Assessment and Plan (1) New onset atrial fibrillation Current Visit: Yes Status: Acute Assessment and Plan: Cardizem drip switched to by mouth metoprolol per cardio. Will start xalreto for anticoagulation, currently on heparin drip. Per cardiology plan for SMITH DCCV in AM. (2) Chest pain Current Visit: Yes Status: Acute Assessment and Plan: Currently chest pain free. LHC done, no intervention, good quality left to right collateral vessel/vessels. Recommend medical management and aggressive risk factor reduction. (3) History of temporal artery biopsy Current Visit: Yes Status: Acute Assessment and Plan: 1. Awaiting biopsy results from [place]. 2. Will place on Prednisone while waiting for biopsy results. Need to verify home prednisone dose. Pt denies headache or vision change (4) IDDM (insulin dependent diabetes mellitus) Current Visit: Yes Status: Chronic Assessment and Plan: We will continue basal and sliding-scale insulin coverage. Closely monitor glucose level (5) DVT prophylaxis Current Visit: Yes Status: Acute Assessment and Plan: On heparin drip, will switch to xarelto per cardio - Time Spent with Patient Total time spent is greater than 50% in coordination of care (as documented) at patient's floor/unit and/or counseling patient: 30 min 25 - 35 minutes Plan of Care Discussed with: patient Internal Medicine: Result - Labs CBC & Chem 7: 12/27/17 11:25 12/27/17 03:53 Labs: Short CBC 12/27/17 12/27/17 Range/Units 03:53 11:25 WBC 13.2 H 15.8 H (4.3-11.1) K/mcL Hgb 13.9 15.3 (12.9-16.9) g/dL Hct 42.9 46.3 (37.5-50.1) % Plt Count 259 256 (140-400) K/mcL Neutrophils # 9.2 H (1.6-8.9) K/mcL BMP 12/27/17 03:53 Sodium 137 Potassium 4.3 Chloride 100 Carbon Dioxide 30 H BUN 20 Creatinine 0.89 Glucose 142 H Calcium 9.4 Cardiac Enzymes 12/26/17 Range/Units 18:22 Troponin I 1.61 H* (< 0.04) ng/mL Liver Function 12/27/17 Range/Units 03:53 Total Bilirubin 0.6 (0.3-1.0) mg/dL AST 14 (13-39) Units/L ALT 15 (7-52) Units/L Alkaline Phosphatase 47 (34-104) Units/L Albumin 3.4 L (3.5-5.7) g/dL - ABG Interpretation ABG results: PT/INR, D-dimer PT 10.6 Seconds (9.4-12.1) 12/27/17 11:25 D-Dimer 1148 ng/mLFEU (0-500) H 12/26/17 00:10 Consult Discharge Plan - Plan Referrals: [facility] [Primary Care Provider] - (2) Chest pain Qualifiers: Chest pain type: chest pain due to myocardial ischemia Ischemic chest pain type: stable angina pectoris Qualified Code(s): I20.8 - Other forms of angina pectoris
[2017-12-27] MEDS ORDERED: *HR* Rivaroxaban 10 MG TABLET PO SCH (17:00)
[2017-12-27] MEDS ORDERED: Insulin DETEMIR 100 UNIT/ML X5UNITS SQ SCH (21:00)
[2017-12-27] MEDS ORDERED: Insulin LISPRO 300 UNITS/3 ML VIAL SQ SCH (21:00)
[2017-12-28] MEDS: Heparin 25,000 UNIT/500 ML D5W 25,000 UNIT/500 ML BAG IVC SCH (03:26)
[2017-12-28 04:41] LABS: Basophils % 0.2 %; Eosinophils # 0.1 K/mcL (0.0-0.6); Eosinophils % 0.5 %; Hematocrit 42.8 % (37.5-50.1); Hemoglobin 13.8 g/dL (12.9-16.9); Immature Granulocytes % 0.6 % (0-4); Lymphocytes # 3.1 K/mcL (0.6-4.6); Lymphocytes % 25.1 %; Mean Corpuscular HGB Conc 32.2 g/dL (31.6-35.5); Mean Corpuscular Hemoglobin 30.4 pg (28.0-33.3); Mean Corpuscular Volume 94.3 fL (83.0-100.0); Mean Platelet Volume 10.8 fL (9.4-12.4); Monocytes # 0.9 K/mcL (0.0-1.3); Monocytes % 7.2 %; Neutrophils # 8.2 K/mcL (1.6-8.9); Platelet Count 227 K/mcL (140-400); Red Blood Count 4.54 M/mcL (4.19-5.50); Red Cell Distribution Width 14.6 % (11.5-14.5); Segmented Neutrophils % 66.4 %
[2017-12-28 04:55] LABS: BUN/Creatinine Ratio 25 (6-26); Blood Urea Nitrogen 23 mg/dL (8-23); Calcium 9.3 mg/dL (8.6-10.3); Carbon Dioxide 31 mEq/L (23-29); Chloride 101 mEq/L (98-107); Glucose 146 mg/dL (70-105); Osmolality,Calculated 292 (280-300); Potassium 4.1 mEq/L (3.5-5.1); Sodium 138 mEq/L (136-145); eGFR For Non-African Americans > 60 (> 60)
[2017-12-28] MEDS: Insulin LISPRO 300 UNITS/3 ML VIAL SQ SCH (08:00)
--- NOTE | 2017-12-28 10:14 | Cardiology Progress Note ---
Date of Encounter: 12/28/17 Time of Encounter: 09:00 Assessment and Plan (1) New onset atrial fibrillation Current Visit: Yes Status: Acute Per cardiology: -New onset a.fib -Currently on toprol 75mg BID and heparin drip for anticoagulation. -Now in SR, average HR 67. -TTE with no signiicant valvular dysfunction per doppler. -Continue toprol. -Will start xarelto for anticoagulation, discontinue heparin drip. -Recommend compliance with CPAP. -Cardiology will sign off, patient follows with [place] cardiology. (2) NSTEMI (non-ST elevated myocardial infarction) Current Visit: Yes Status: Acute Per cardiology: -Troponin peak at 2.68, down trended. -[facility] [employer] of RCA stent, moderate LAD disease. -likely type II NSTEMI triggered by Afib RVR -ON asa, statin, BB. -Denies chest pain. -TTE with possibly mildly reduced LVEF, however several wall segments not visualized. ON BB and robert inhibitor. -Can consider repeat TTE in outpatient setting. -Cardiology will sign off. Discussion w patient/family: The assessment and plan as outlined above was discussed with the patient and/or family members who expressed understanding and agreement. All questions were answered. Thank you for involving us in the care of your patient. Please call with any questions. Discussed and reviewed with . Subjective Principal diagnosis: AFIB Interval history: Patient denies chest pain. Denies shortness of breath. Patient states he feels back to baseline and is ready to go home. Objective Vital Signs, Last 4 Hours Temp Pulse Resp BP Pulse Ox 12/28/17 07:06 97.4 F L 69 20 157/78 96 General: Conversant, No Apparent Distress HEENT: Atraumatic, Normocephaly, Mucus Membranes Moist Neck: No JVD, Normal carotid pulses Cardiac: Reg Rate and Rhythm, Normal S1 and S2, No Murmur Lungs: Normal Breath Sounds, No Wheeze, Rales, Rhonchi Neuro: Alert and responsive, No focal deficits noted Abdomen: Soft, Non-Tender Skin: No rashes noted on visualized skin, Other (Right groin access site without hematoma or ecchymosis. ) Musculoskeletal: No Chest Wall Tenderness Extremities: No Clubbing, No Cyanosis, No Edema, Normal Pulses Results 12/28/17 04:10 12/28/17 04:10 Lab Results Active Medications Aspirin (Aspirin Ec) 81 mg PO DAILY [facility] Stop: 06/27/18 15:01 Last Admin: 12/27/17 08:14 Dose: 81 mg Atorvastatin Calcium (Lipitor) 40 mg PO HS [facility] Stop: 06/27/18 21:01 Last Admin: 12/27/17 20:29 Dose: 40 mg Dextrose/Water (Dextrose 50% (Syg)) 25 ml IVP AD PRN PRN Reason: Hypoglycemia Stop: 06/27/18 06:19 Glucagon (Glucagen) 1 mg IM ONCE PRN PRN Reason: Hypoglycemia Stop: 06/27/18 06:19 Glucose (Gluctose) 15 gm PO ONCE PRN PRN Reason: Hypoglycemia Stop: 06/27/18 06:19 Glucose (Gluctose) 30 gm PO ONCE PRN PRN Reason: Hypoglycemia Stop: 06/27/18 06:19 Diltiazem HCl 50 mg/ Sodium (Chloride) 50 mls @ 5 mls/hr IVC .Q10H SILVIA; 5 MG/HR PRN Reason: Protocol Stop: 06/27/18 00:31 Last Admin: 12/27/17 10:29 Dose: 12.5 mg/hr, 12.5 mls/hr Dextrose (Dextrose 5%) 1,000 mls @ 100 mls/hr IVC .Q10H PRN PRN Reason: HYPOGLYCEMIA Stop: 06/27/18 06:19 Insulin Detemir (Levemir) 20 unit SQ HS [facility] Stop: 06/28/18 21:01 Last Admin: 12/27/17 21:03 Dose: 20 unit Insulin Human Lispro (Humalog) 0 units SQ TIDAC [facility] PRN Reason: Protocol Stop: 06/27/18 07:31 Last Admin: 12/27/17 17:20 Dose: 8 units Insulin Human Lispro (Humalog) 0 units SQ HS [facility] PRN Reason: Protocol Stop: 06/28/18 21:01 Last Admin: 12/27/17 21:08 Dose: Not Given Lisinopril (Zestril) 20 mg PO DAILY [facility] PRN Reason: Protocol Stop: 06/28/18 09:01 Last Admin: 12/27/17 08:14 Dose: 20 mg Metoprolol Succinate (Toprol Xl) 75 mg PO BID [facility] Stop: 06/28/18 21:01 Last Admin: 12/27/17 20:27 Dose: 75 mg Montelukast Sodium (Singulair) 10 mg PO DAILY [facility] Stop: 06/28/18 09:01 Last Admin: 12/27/17 08:14 Dose: 10 mg Naloxone HCl (Narcan) 0.4 mg IVP Q2MIN PRN PRN Reason: SEE COMMENTS Stop: 06/27/18 06:19 Omeprazole (Prilosec) 20 mg PO DAILY [facility] PRN Reason: Protocol Stop: 06/28/18 09:01 Last Admin: 12/27/17 08:13 Dose: 20 mg Prednisone (Prednisone) 40 mg PO DAILY [facility] Stop: 06/27/18 09:01 Last Admin: 12/27/17 08:13 Dose: 40 mg Rivaroxaban (Xarelto) 20 mg PO DAILY [facility] Stop: 06/29/18 10:16 Tramadol HCl (Ultram) 50 mg PO Q6HR PRN PRN Reason: Moderate Pain Stop: 06/27/18 06:19 Laboratory Tests 12/28/17 12/28/17 04:10 04:10 Hgb 13.8 D Creatinine 0.92 - Imaging and Cardiology Chest Xray: report reviewed Echo: report reviewed Cardiac cath: report reviewed - EKG Interpretation EKG results cardiology: other (Telemetry reviewed with average HR previous 12 hours noted to be 67, SR. PVCs and PACs noted.) Consult Discharge Plan - Plan [facility]errals: [facility] [Primary Care Provider[facility] -
[2017-12-28] MEDS ORDERED: *HR* Rivaroxaban 10 MG TABLET PO SCH (10:15)
[2017-12-28] MEDS: Lisinopril 20 MG TABLET PO SCH (10:35)
[2017-12-28] MEDS: predniSONE 20 MG TABLET PO SCH (10:36)
[2017-12-28] MEDS: Aspirin Enteric Coated 81 MG Tablet PO SCH (10:36)
[2017-12-28] MEDS: Metoprolol XL (24 HR) Succ 50 MG TAB.ER.24H PO SCH (10:37)
[2017-12-28 11:14] VITALS: BP 137/65
--- NOTE | 2017-12-28 11:34 | Discharge Summary ---
- NOTES TO OUTPATIENT PROVIDER Notes to Outpatient Provider: 1. Started xarelto 20 mg po daily for PAF. 2. Plz f/u temporal A biopsy result to determined Steroid use. Orders not resulted at time of discharge: Pending orders 12/28/17 08:25 ECG 12 lead ECG [ECG] Stat Date of Encounter: 12/28/17 Time of Encounter: 11:00 - Discharge Diagnosis (1) New onset atrial fibrillation Priority: Primary Status: Acute (2) Chest pain Priority: Primary Status: Acute Qualifiers: Chest pain type: chest pain due to myocardial ischemia Ischemic chest pain type: stable angina pectoris Qualified Code(s): I20.8 - Other forms of angina pectoris (3) History of temporal artery biopsy Priority: Secondary Status: Acute (4) IDDM (insulin dependent diabetes mellitus) Priority: Secondary Status: Chronic (5) DVT prophylaxis Priority: Secondary Status: Acute Hospital course: Mr. Gayle is a 77 year old male presented to ER for chest pain. In the emergency room, patient was found elevated troponin. Patient was admitted as NSTEMI. Patient was also found A. fib RVR in the hospital. Cardiology consult was called. Patient had LHC. Cardiology recommended xarelto for A. fib anticoagulation. Patient's heart rate switch to sinus rhythm this morning. Patient denies chest pain or shortness of breath today. Patient has COPD on home oxygen. His oxygen requirements is at his baseline. Vitals are stable. Patient did temporal artery biopsy several days ago in [facility], result is pending, now on by mouth prednisone, will continue until biopsy result negative. Pt denies headache or vision change at this point. Cardiology saw patient today and sign off. Patient is generally in stable condition to discharge home. - Time Spent with Patient Total time spent providing and/or coordinating discharge services: 25 min - Discharge Medications Prescriptions: predniSONE [PredniSONE] 40 mg PO DAILY 7 Days #14 tablet Rivaroxaban [Xarelto] 20 mg PO DAILY #30 tablet Home Medications: Albuterol Sulfate [Ventolin Hfa] 2 puff IH Q4H PRN 12/26/17 [History] Aspirin [Adult Aspirin] 81 mg PO DAILY 12/26/17 [History] Atorvastatin [Lipitor] 40 mg PO HS 12/26/17 [History] Budesonide/Formoterol 160/4.5 [Symbicort 160/4.5] 2 puff IH BIDR 12/26/17 [ History] Cholecalciferol (D-3) [Vitamin D] 1,000 unit PO DAILY 12/26/17 [History] Insulin Glargine [Lantus] 48 unit SQ HS 12/26/17 [History] Lisinopril [Zestril] 20 mg PO DAILY 12/26/17 [History] Magnesium Oxide [Magnesium] 200 mg PO DAILY 12/26/17 [History] Meloxicam [Mobic] 7.5 mg PO DAILY 12/26/17 [History] Metoprolol Succinate [Kapspargo Sprinkle] 50 mg PO BID 12/26/17 [History] Montelukast [Singulair] 10 mg PO DAILY 12/26/17 [History] Nitrofurantoin Monohyd/M-Cryst [Macrobid 100 mg Capsule] 100 mg PO BID 12/26/17 [History] Nitroglycerin [Nitrostat] 0.4 mg SL Q5M PRN 12/26/17 [History] Omeprazole [PriLOSEC] 20 mg PO DAILY 12/26/17 [History] Vit C/E/Zn/Coppr/Lutein/Zeaxan [Preservision Areds 2 Softgel] 1 cap PO DAILY 02/02 [History] Rivaroxaban [Xarelto] 20 mg PO DAILY #30 tablet 12/28/17 [Rx] predniSONE [PredniSONE] 40 mg PO DAILY 7 Days #14 tablet 12/28/17 [Rx] Allergies/Adverse Reactions: 3 Allergy/AdvReac Type Severity Reaction Status Date / Time acetaminophen [From Vicodin] Allergy Headache Verified 12/26/17 04:44 hydrocodone [From Vicodin] Allergy Headache Verified 12/26/17 04:44 simvastatin Allergy Nausea Verified 12/26/17 04:44 Date of admission: 12/26/17 18:03 Primary care physician: [facility] Consults: Cardio Discharging clinician: Erica Maguire Anticipated date of discharge: 12/28/17 - Constitutional Vitals: Temp Pulse Resp BP Pulse Ox 97.5 F L 73 20 137/65 94 12/28/17 11:07 12/28/17 11:07 12/28/17 11:07 12/28/17 11:07 12/28/17 11:07 General appearance: Present: cooperative, A&O X 3, pleasant, no acute distress, answers questions appropriately Exam: in NAD - Head Head exam: Present: atraumatic, normocephalic - Eye Eye exam: Present: PERRL, conjuntiva pink, sclera anicteric Pupils: Present: PERRL - Neck Neck exam general surgery: Present: supple, trachea midline. Absent: lymphadenopathy - Respiratory Respiratory exam: Present: CTAB. Absent: accessory muscle use, rales, rhonchi, wheezes - Cardiovascular Cardiovascular exam: Present: RRR, +S1, +S2. Absent: diastolic murmur, gallop, rubs, systolic murmur - GI/Abdominal GI/Abdominal exam: Present: normal bowel sounds, soft, no peritoneal signs. Absent: distended, tenderness - Extremities Exam Extremities exam: Present: warm, radial pulses palpable and symmetrical. Absent : calf tenderness, cyanotic, pedal edema - Neurological Exam Neurological exam: Present: CN II-XII intact, oriented X3, no focal deficits. Absent: pronater drift, facial droop, speech deficit - Skin Skin exam: Present: dry, intact - Patient Status Disposition: Home Health Service Condition: Good Functional capacity at discharge: uses cane/walker Overall status at discharge: patient is back to baseline - Discharge Instructions [facility] With: [facility] Care Provider[facility] - Additional Instructions: F/U cardio as scheduled by cardio - Diet and Activity Activity: as per physical therapy Diet: diabetic diet, low fat, low cholesterol, low salt diet
--- NOTE | 2017-12-28 11:47 | Physician Discharge Referral ---
Home Health/Hosp Referral Info Transfer to: Home Health Provider in Charge Post Discharge: PCP - Diagnosis (1) New onset atrial fibrillation Priority: Primary Status: Acute (2) Chest pain Priority: Primary Status: Acute (3) History of temporal artery biopsy Status: Acute (4) IDDM (insulin dependent diabetes mellitus) Status: Chronic (5) DVT prophylaxis Status: Acute - Respiratory Orders Oxygen / L per min (3) Smoking Cessation: Smoking cessation has been advised. For more information, call the [place] Tobacco Quit Line at 9-680-SIYJ-NOW. - Diet/Nutrition Diet/Nutrition Orders: No Added Salt (LASHANDA), Cardiac, No Concentrated Sweets - Services Needed Following services are medically necessary services: Nursing, Home Health Aide, Physical Therapy, Occupational Therapy - Transfer Medications Prescriptions: predniSONE [PredniSONE] 40 mg PO DAILY 7 Days #14 tablet Rivaroxaban [Xarelto] 20 mg PO DAILY #30 tablet Home Medications: Albuterol Sulfate [Ventolin Hfa] 2 puff IH Q4H PRN 12/26/17 [History] Aspirin [Adult Aspirin] 81 mg PO DAILY 12/26/17 [History] Atorvastatin [Lipitor] 40 mg PO HS 12/26/17 [History] Budesonide/Formoterol 160/4.5 [Symbicort 160/4.5] 2 puff IH BIDR 12/26/17 [ History] Cholecalciferol (D-3) [Vitamin D] 1,000 unit PO DAILY 12/26/17 [History] Insulin Glargine [Lantus] 48 unit SQ HS 12/26/17 [History] Lisinopril [Zestril] 20 mg PO DAILY 12/26/17 [History] Magnesium Oxide [Magnesium] 200 mg PO DAILY 12/26/17 [History] Meloxicam [Mobic] 7.5 mg PO DAILY 12/26/17 [History] Metoprolol Succinate [Kapspargo Sprinkle] 50 mg PO BID 12/26/17 [History] Montelukast [Singulair] 10 mg PO DAILY 12/26/17 [History] Nitrofurantoin Monohyd/M-Cryst [Macrobid 100 mg Capsule] 100 mg PO BID 12/26/17 [History] Nitroglycerin [Nitrostat] 0.4 mg SL Q5M PRN 12/26/17 [History] Omeprazole [PriLOSEC] 20 mg PO DAILY 12/26/17 [History] Vit C/E/Zn/Coppr/Lutein/Zeaxan [Preservision Areds 2 Softgel] 1 cap PO DAILY 02/02 [History] Rivaroxaban [Xarelto] 20 mg PO DAILY #30 tablet 12/28/17 [Rx] predniSONE [PredniSONE] 40 mg PO DAILY 7 Days #14 tablet 12/28/17 [Rx] Allergies/Adverse Reactions: 3 Allergy/AdvReac Type Severity Reaction Status Date / Time acetaminophen [From Vicodin] Allergy Headache Verified 12/26/17 04:44 hydrocodone [From Vicodin] Allergy Headache Verified 12/26/17 04:44 simvastatin Allergy Nausea Verified 12/26/17 04:44 Certification: Further, I certify that my clinical findings support that this patient is homebound (i.e. absences from home require considerable and taxing effort and are for medical reasons or orthodox services or infrequently or short duration when for other reasons) because: Homebound Reason: Patient requires assistance of a person or device to safely leave home Attestation: My signature below is to certify that this patient is under my care and that I, or nurse practitioner, or a physician's registrar assistant working with me, has a face-to -face encounter with this patient.
--- NOTE | 2017-12-29 15:50 | Electrocardiograph Report ---
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
--- NOTE | 2017-12-29 18:06 | Electrocardiograph Report ---
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
== END 2017-12-28 14:09 | disposition home health service (06) | DRG 281 ==
LOC: 2NENU 23:57 → EMEROOARM 23:57 → SUATTDRO 12-26 02:50 → 2NENU 12-26 04:23
PROVIDERS: ADMIT Family Medicine; ATTEND Internal Medicine

== ENCOUNTER 2018-01-19 18:31 | Inpatient (IN) ==
--- NOTE | 2018-01-19 18:57 | Emergency Department Note ---
Disposition Clinical Impression: TIA (transient ischemic attack) Disposition: Admitted As Inpatient Condition: Good [facility] Provider[facility] - Forms: ED Satisfaction Letter, Work/School Release Time of Disposition: 20:49 Altered Mental Status HPI - General Chief Complaint: ED General Medical Stated Complaint: AMS Time Seen by Provider: 01/19/18 18:34 Source: patient, EMS Mode of arrival: EMS Limitations: no limitations Nursing Notes Reviewed: Yes Vital Signs Reviewed: Yes - History of Present Illness HPI Narrative: Patient is a 77-year-old male who yesterday started to feel like he was confused , he told family this morning that he did not know how to go to bed last night, he also states that he has had a slight increase in his shortness of breath, a slightly worsening cough than he normally has, he is bringing up a little bit more phlegm but he does not know what color it is because he swallows. He states that today he had a little bit of a shuffling gait and he was having difficulty walking in a straight line, he also felt a little bit dizzy. His family took him to the Urgent Care at the [place] where they were concerned for stroke so they sent him over here. He states a history of hypertension, diabetes, COPD, CHF, emphysema, anxiety, depression. He states that he stopped smoking in 1989, he still has an occasional beer, and he denies any illicit or illegal drugs. - Related Data Home Medications Medication Instructions Recorded Confirmed Albuterol Sulfate [Ventolin Hfa] 2 puff IH Q4H PRN 12/26/17 01/19/18 Aspirin [Adult Aspirin] 81 mg PO DAILY 12/26/17 01/19/18 Atorvastatin [Lipitor] 40 mg PO HS 12/26/17 01/19/18 Budesonide/Formoterol 160/4.5 2 puff IH BIDR 12/26/17 01/19/18 [Symbicort 160/4.5] Cholecalciferol (D-3) [Vitamin D] 1,000 unit PO DAILY 12/26/17 01/19/18 Insulin Glargine [Lantus] 48 unit SQ HS 12/26/17 01/19/18 Magnesium Oxide [Magnesium] 200 mg PO DAILY 12/26/17 01/19/18 Meloxicam [Mobic] 7.5 mg PO DAILY 12/26/17 01/19/18 Vit C/E/Zn/Coppr/Lutein/Zeaxan 1 cap PO DAILY 12/26/17 01/19/18 [Preservision Areds 2 Softgel] Metoprolol Succinate [Toprol Xl] 75 mg PO BID 01/19/18 01/19/18 Tiotropium [place] [Spiriva 2 puff IH QAM 01/19/18 01/19/18 Respimat] Previous Rx's Medication Instructions Recorded Rivaroxaban [Xarelto] 20 mg PO DAILY #30 tablet 12/28/17 Allergies Allergy/AdvReac Type Severity Reaction Status Date / Time acetaminophen [From Vicodin] Allergy Headache Verified 12/26/17 04:44 hydrocodone [From Vicodin] Allergy Headache Verified 12/26/17 04:44 simvastatin Allergy Nausea Verified 12/26/17 04:44 Constitutional: Denies: fever, chills Eyes: Denies: vision change Cardiovascular: Denies: chest pain Respiratory: Reports: cough (worsening, productive of more sputum, unsure what color), dyspnea (worsening) Gastrointestinal: Denies: abdominal pain, nausea, vomiting, diarrhea Genitourinary: Reports: frequency. Denies: urgency, dysuria Neurological: Denies: headache Past Medical History - Past Medical History Medical history: Reports: arthritis, COPD, diabetes, hyperlipidemia, hypertension, myocardial infarction, TIA Surgical history: Reports: angioplasty/stent, orthopedic, other Psychiatric history: Reports: no psych history - Social History Smoking Status: Former smoker Smokeless Tobacco Status: No Alcohol use: Reports: occasionally Drug use: Reports: none Physical Exam - General Limitations: no limitations General appearance: alert, in no apparent distress - Head Head exam: atraumatic, normocephalic - Eye Eye exam: Present: normal appearance, PERRL, EOMI. Absent: scleral icterus, conjunctival injection, nystagmus - ENT ENT exam: normal exam, normal oropharynx, mucous membranes moist - Neck Neck exam: Present: normal inspection, full ROM - Chest Chest inspection: Present: normal inspection, symmetric chest wall rise - Respiratory Respiratory exam: Present: normal lung sounds bilaterally. Absent: respiratory distress, wheezes - Cardiovascular Cardiovascular exam: Present: regular rate, irregular rhythm - Abdominal Exam Abdominal exam: Present: soft, Non-Tender - Expanded Lower Extremity Exam Lower leg exam: Present: swelling (1+ concepcion pitting edema) - Neurological Exam Neurological exam: Present: alert, oriented X3, CN II-XII intact - Expanded Neurological Exam Cerebellar function: finger to nose: Normal, heel to linda: Abnormal Left, Abnormal Right (dysarthria, mild) Motor strength - LUE: 5/5 Motor strength - RUE: 5/5 Motor strength - LLE: 5/5 Motor strength - RLE: 5/5 Coma Scale Eye Opening: Spontaneous Coma Scale Motor Response: Obeys Commands Coma Scale Verbal Response: Oriented Coma Scale Total: 15 - Psychiatric Psychiatric exam: Present: normal affect, normal mood - Skin Skin exam: Present: warm, dry, intact Course Course Narrative: Patient was sent over from the [place] for concerns of stroke with last known well LAST night. We will do a noncontrast head CT, repeat some basic labs, and get a chest x-ray as he is complaining of increased shortness of breath, increased sputum production. Vital Signs Temperature 97.7 F 01/19/18 18:35 Pulse Rate 75 01/19/18 18:35 Respiratory Rate 20 01/19/18 18:35 Blood Pressure 183/91 01/19/18 18:35 O2 Sat by Pulse Oximetry 97 01/19/18 18:35 Temperature 97.7 F 01/19/18 18:35 Pulse Rate 75 01/19/18 18:35 Respiratory Rate 20 01/19/18 18:35 Blood Pressure 183/91 01/19/18 18:35 O2 Sat by Pulse Oximetry 98 01/19/18 18:43 Oxygen Delivery Oxygen Delivery Room Air Altered Mental Status - MDM Narrative Medical decision making narrative: Patient's head CT did not show any acute bleed, his lab work was only remarkable for an elevated BNP although it was decreased from the last time it was measured. He will be brought into the hospital for a TIA workup with MRI in the morning. He remained stable while he was in the emergency department. He was given an opportunity to ask questions and all of his concerns were addressed. I spoke with Dr. Arana who agrees to accept the patient. - Medical Records Medical records reviewed: Yes I reviewed the patient's medical records. - Lab Data Lab results reviewed: Yes I reviewed the patient's lab results. Result diagrams: 01/19/18 19:37 01/19/18 19:37 Lab Results 01/19/18 01/19/18 01/19/18 Range/Units 19:37 19:37 19:37 WBC 7.0 (4.3-11.1) K/mcL RBC 3.83 L (4.19-5.50) M/mcL Hgb 11.8 L (12.9-16.9) g/dL Hct 36.1 L (37.5-50.1) % MCV 94.3 (83.0-100.0) fL MCH 30.8 (28.0-33.3) pg MCHC 32.7 (31.6-35.5) g/dL RDW 14.5 (11.5-14.5) % Plt Count 224 (140-400) K/mcL MPV 10.7 (9.4-12.4) fL Immature Gran % 0.4 (0-4) % Seg Neutrophils % 60.2 % Lymphocytes % 26.3 % Monocytes % 8.3 % Eosinophils % 4.4 % Basophils % 0.4 % Neutrophils # 4.2 (1.6-8.9) K/mcL Lymphocytes # 1.9 (0.6-4.6) K/mcL Monocytes # 0.6 (0.0-1.3) K/mcL Eosinophils # 0.3 (0.0-0.6) K/mcL Basophils # 0.0 (0.0-0.2) K/mcL PT 14.3 H (9.4-12.1) Seconds INR 1.3 APTT 39.3 H (26.0-36.0) Seconds Sodium 139 (136-145) mEq/L Potassium 4.4 (3.5-5.1) mEq/L Chloride 102 (98-107) mEq/L Carbon Dioxide 31 H (23-29) mEq/L BUN 13 (8-23) mg/dL Creatinine 0.78 (0.70-1.30) mg/dL Est GFR ( Amer) > 60 (> 60) Est GFR (Non-Af Amer) > 60 (> 60) BUN/Creatinine Ratio 17 (6-26) Glucose 172 H (70-105) mg/dL Calculated Osmolality 292 (280-300) Calcium 9.6 (8.6-10.3) mg/dL Phosphorus 3.4 (2.7-4.5) mg/dL Magnesium 1.8 (1.6-2.6) mg/dL Total Bilirubin 0.4 (0.3-1.0) mg/dL AST 13 (13-39) Units/L ALT 16 (7-52) Units/L Alkaline Phosphatase 60 (34-104) Units/L Ammonia (16-53) mcmol/L B-Natriuretic Peptide (Less than 100) pg/mL Serum Total Protein 6.2 L (6.4-8.9) g/dL Albumin 3.6 (3.5-5.7) g/dL Globulin 2.6 (2.4-3.5) g/dL Albumin/Globulin Ratio 1.4 (1.1-2.2) 01/19/18 01/19/18 Range/Units 19:37 19:37 WBC (4.3-11.1) K/mcL RBC (4.19-5.50) M/mcL Hgb (12.9-16.9) g/dL Hct (37.5-50.1) % MCV (83.0-100.0) fL MCH (28.0-33.3) pg MCHC (31.6-35.5) g/dL RDW (11.5-14.5) % Plt Count (140-400) K/mcL MPV (9.4-12.4) fL Immature Gran % (0-4) % Seg Neutrophils % % Lymphocytes % % Monocytes % % Eosinophils % % Basophils % % Neutrophils # (1.6-8.9) K/mcL Lymphocytes # (0.6-4.6) K/mcL Monocytes # (0.0-1.3) K/mcL Eosinophils # (0.0-0.6) K/mcL Basophils # (0.0-0.2) K/mcL PT (9.4-12.1) Seconds INR APTT (26.0-36.0) Seconds Sodium (136-145) mEq/L Potassium (3.5-5.1) mEq/L Chloride (98-107) mEq/L Carbon Dioxide (23-29) mEq/L BUN (8-23) mg/dL Creatinine (0.70-1.30) mg/dL Est GFR ( Amer) (> 60) Est GFR (Non-Af Amer) (> 60) BUN/Creatinine Ratio (6-26) Glucose (70-105) mg/dL Calculated Osmolality (280-300) Calcium (8.6-10.3) mg/dL Phosphorus (2.7-4.5) mg/dL Magnesium (1.6-2.6) mg/dL Total Bilirubin (0.3-1.0) mg/dL AST (13-39) Units/L ALT (7-52) Units/L Alkaline Phosphatase (34-104) Units/L Ammonia 26 (16-53) mcmol/L B-Natriuretic Peptide 145 H (Less than 100) pg/mL Serum Total Protein (6.4-8.9) g/dL Albumin (3.5-5.7) g/dL Globulin (2.4-3.5) g/dL Albumin/Globulin Ratio (1.1-2.2) - Radiology Data Radiology results reviewed: Yes I reviewed the patient's radiology results. Chest X-Ray 01/19/18 18:57 IMPRESSION: Stable chest x-ray. No acute disease. D/ / Merritt Valdes MD / Merritt Valdes MD Interpreting Provider: Merritt Valdes MD Head CT 01/19/18 18:57 IMPRESSION: No acute intracranial abnormality. D/ / Shailesh Rajput / Shailesh Rajput Interpreting Provider: Shailesh Rajput - EKG Data EKG attestation: Yes I reviewed and interpreted this EKG. EKG results narrative: HR 76, rhythm is regular, but p waves cannot be identified - study is technically challenging and has baseline wander which may be motion artifact. Multiple PVCs are present. RBBB with R'SR pattern in V2-V3. Abnormal EKG but no evidence of gross ST elevation or depression. TPA Checklist - LKW: 3-4.5 hrs Add. Warnings/Precautions Patient/family understanding: The patient/family members have been counseled and understood the risk, benefit , and alternatives of treatment. Attestation Statement - Attestation Attestation: I, Zelalem Alaniz DO, examined this patient [id number] and my medical decision-making was reviewed with Dr. Kay Tovar, Resident Physician. I agree with the documented findings, disposition and treatment plan as described except to the extent set forth below. Please see my progress notes for details.
[2018-01-19 20:02] LABS: Basophils % 0.4 %; Eosinophils # 0.3 K/mcL (0.0-0.6); Eosinophils % 4.4 %; Hematocrit 36.1 % (37.5-50.1); Hemoglobin 11.8 g/dL (12.9-16.9); Immature Granulocytes % 0.4 % (0-4); Lymphocytes # 1.9 K/mcL (0.6-4.6); Lymphocytes % 26.3 %; Mean Corpuscular HGB Conc 32.7 g/dL (31.6-35.5); Mean Corpuscular Hemoglobin 30.8 pg (28.0-33.3); Mean Corpuscular Volume 94.3 fL (83.0-100.0); Mean Platelet Volume 10.7 fL (9.4-12.4); Monocytes # 0.6 K/mcL (0.0-1.3); Monocytes % 8.3 %; Neutrophils # 4.2 K/mcL (1.6-8.9); Platelet Count 224 K/mcL (140-400); Red Blood Count 3.83 M/mcL (4.19-5.50); Red Cell Distribution Width 14.5 % (11.5-14.5); Segmented Neutrophils % 60.2 %
[2018-01-19 20:09] LABS: INR 1.3; Prothrombin Time 14.3 Seconds (9.4-12.1)
[2018-01-19 20:11] LABS: Activated Partial Thrombo Time 39.3 Seconds (26.0-36.0)
[2018-01-19 20:12] LABS: Alanine Aminotransferase 16 Units/L (7-52); Albumin 3.6 g/dL (3.5-5.7); Albumin/Globulin Ratio 1.4 (1.1-2.2); Alkaline Phosphatase 60 Units/L (34-104); Aspartate Amino Transferase 13 Units/L (13-39); BUN/Creatinine Ratio 17 (6-26); Bilirubin,Total 0.4 mg/dL (0.3-1.0); Blood Urea Nitrogen 13 mg/dL (8-23); Calcium 9.6 mg/dL (8.6-10.3); Carbon Dioxide 31 mEq/L (23-29); Chloride 102 mEq/L (98-107); Globulin 2.6 g/dL (2.4-3.5); Glucose 172 mg/dL (70-105); Magnesium 1.8 mg/dL (1.6-2.6); Osmolality,Calculated 292 (280-300); Phosphorous 3.4 mg/dL (2.7-4.5); Potassium 4.4 mEq/L (3.5-5.1); Sodium 139 mEq/L (136-145); Total Protein 6.2 g/dL (6.4-8.9); eGFR For Non-African Americans > 60 (> 60)
[2018-01-19] MEDS ORDERED: Aspirin 325 MG TABLET PO ONE (20:46)
--- NOTE | 2018-01-19 20:47 | Emergency Department Note ---
Disposition Clinical Impression: Slurred speech, TIA (transient ischemic attack) Disposition: Admitted As Inpatient Condition: Fair [facility]: [facility]Primary Care Provider[facility] - Forms: ED Satisfaction Letter, Work/School Release Time of Disposition: 20:48 General Adult HPI - General Chief complaint: ED General Medical Stated complaint: AMS Time Seen by Provider: 01/19/18 18:34 Source: patient, EMS Mode of arrival: EMS Limitations: no limitations - History of Present Illness Pain Scale: 0 - Related Data Home Medications Medication Instructions Recorded Confirmed Albuterol Sulfate [Ventolin Hfa] 2 puff IH Q4H PRN 12/26/17 01/19/18 Aspirin [Adult Aspirin] 81 mg PO DAILY 12/26/17 01/19/18 Atorvastatin [Lipitor] 40 mg PO HS 12/26/17 01/19/18 Budesonide/Formoterol 160/4.5 2 puff IH BIDR 12/26/17 01/19/18 [Symbicort 160/4.5] Cholecalciferol (D-3) [Vitamin D] 1,000 unit PO DAILY 12/26/17 01/19/18 Insulin Glargine [Lantus] 48 unit SQ HS 12/26/17 01/19/18 Magnesium Oxide [Magnesium] 200 mg PO DAILY 12/26/17 01/19/18 Meloxicam [Mobic] 7.5 mg PO DAILY 12/26/17 01/19/18 Vit C/E/Zn/Coppr/Lutein/Zeaxan 1 cap PO DAILY 12/26/17 01/19/18 [Preservision Areds 2 Softgel] Metoprolol Succinate [Toprol Xl] 75 mg PO BID 01/19/18 01/19/18 Tiotropium V[place] [Spiriva 2 puff IH QAM 01/19/18 01/19/18 Respimat] Previous Rx's Medication Instructions Recorded Rivaroxaban [Xarelto] 20 mg PO DAILY #30 tablet 12/28/17 Allergies Allergy/AdvReac Type Severity Reaction Status Date / Time acetaminophen [From Vicodin] Allergy Headache Verified 12/26/17 04:44 hydrocodone [From Vicodin] Allergy Headache Verified 12/26/17 04:44 simvastatin Allergy Nausea Verified 12/26/17 04:44 Constitutional: Denies: fever, chills Eyes: Denies: vision change Cardiovascular: Denies: chest pain Respiratory: Reports: cough (worsening, productive of more sputum, unsure what color), dyspnea (worsening) Gastrointestinal: Denies: abdominal pain, nausea, vomiting, diarrhea Genitourinary: Reports: frequency. Denies: urgency, dysuria Neurological: Denies: headache Past Medical History - Past Medical History Medical history: Reports: arthritis, COPD, diabetes, hyperlipidemia, hypertension, myocardial infarction, TIA Surgical history: Reports: angioplasty/stent, orthopedic, other Psychiatric history: Reports: no psych history - Social History Smoking Status: Former smoker Smokeless Tobacco Status: No Alcohol use: Reports: occasionally Drug use: Reports: none Physical Exam - General Limitations: no limitations General appearance: alert, in no apparent distress Course Vital Signs Temperature 97.7 F 01/19/18 18:35 Pulse Rate 75 01/19/18 18:35 Respiratory Rate 20 01/19/18 18:35 Blood Pressure 183/91 01/19/18 18:35 O2 Sat by Pulse Oximetry 97 01/19/18 18:35 Temperature 97.7 F 01/19/18 18:35 Pulse Rate 75 01/19/18 18:35 Respiratory Rate 20 01/19/18 18:35 Blood Pressure 183/91 01/19/18 18:35 O2 Sat by Pulse Oximetry 98 01/19/18 18:43 Oxygen Delivery Oxygen Delivery Room Air Medical Decision Making - Lab Data Result diagrams: 01/19/18 19:37 01/19/18 19:37 Lab Results 01/19/18 01/19/18 01/19/18 Range/Units 19:37 19:37 19:37 WBC 7.0 (4.3-11.1) K/mcL RBC 3.83 L (4.19-5.50) M/mcL Hgb 11.8 L (12.9-16.9) g/dL Hct 36.1 L (37.5-50.1) % MCV 94.3 (83.0-100.0) fL MCH 30.8 (28.0-33.3) pg MCHC 32.7 (31.6-35.5) g/dL RDW 14.5 (11.5-14.5) % Plt Count 224 (140-400) K/mcL MPV 10.7 (9.4-12.4) fL Immature Gran % 0.4 (0-4) % Seg Neutrophils % 60.2 % Lymphocytes % 26.3 % Monocytes % 8.3 % Eosinophils % 4.4 % Basophils % 0.4 % Neutrophils # 4.2 (1.6-8.9) K/mcL Lymphocytes # 1.9 (0.6-4.6) K/mcL Monocytes # 0.6 (0.0-1.3) K/mcL Eosinophils # 0.3 (0.0-0.6) K/mcL Basophils # 0.0 (0.0-0.2) K/mcL PT 14.3 H (9.4-12.1) Seconds INR 1.3 APTT 39.3 H (26.0-36.0) Seconds Sodium 139 (136-145) mEq/L Potassium 4.4 (3.5-5.1) mEq/L Chloride 102 (98-107) mEq/L Carbon Dioxide 31 H (23-29) mEq/L BUN 13 (8-23) mg/dL Creatinine 0.78 (0.70-1.30) mg/dL Est GFR ( Amer) > 60 (> 60) Est GFR (Non-Af Amer) > 60 (> 60) BUN/Creatinine Ratio 17 (6-26) Glucose 172 H (70-105) mg/dL Calculated Osmolality 292 (280-300) Calcium 9.6 (8.6-10.3) mg/dL Phosphorus 3.4 (2.7-4.5) mg/dL Magnesium 1.8 (1.6-2.6) mg/dL Total Bilirubin 0.4 (0.3-1.0) mg/dL AST 13 (13-39) Units/L ALT 16 (7-52) Units/L Alkaline Phosphatase 60 (34-104) Units/L Ammonia (16-53) mcmol/L Serum Total Protein 6.2 L (6.4-8.9) g/dL Albumin 3.6 (3.5-5.7) g/dL Globulin 2.6 (2.4-3.5) g/dL Albumin/Globulin Ratio 1.4 (1.1-2.2) 01/19/18 Range/Units 19:37 WBC (4.3-11.1) K/mcL RBC (4.19-5.50) M/mcL Hgb (12.9-16.9) g/dL Hct (37.5-50.1) % MCV (83.0-100.0) fL MCH (28.0-33.3) pg MCHC (31.6-35.5) g/dL RDW (11.5-14.5) % Plt Count (140-400) K/mcL MPV (9.4-12.4) fL Immature Gran % (0-4) % Seg Neutrophils % % Lymphocytes % % Monocytes % % Eosinophils % % Basophils % % Neutrophils # (1.6-8.9) K/mcL Lymphocytes # (0.6-4.6) K/mcL Monocytes # (0.0-1.3) K/mcL Eosinophils # (0.0-0.6) K/mcL Basophils # (0.0-0.2) K/mcL PT (9.4-12.1) Seconds INR APTT (26.0-36.0) Seconds Sodium (136-145) mEq/L Potassium (3.5-5.1) mEq/L Chloride (98-107) mEq/L Carbon Dioxide (23-29) mEq/L BUN (8-23) mg/dL Creatinine (0.70-1.30) mg/dL Est GFR ( Amer) (> 60) Est GFR (Non-Af Amer) (> 60) BUN/Creatinine Ratio (6-26) Glucose (70-105) mg/dL Calculated Osmolality (280-300) Calcium (8.6-10.3) mg/dL Phosphorus (2.7-4.5) mg/dL Magnesium (1.6-2.6) mg/dL Total Bilirubin (0.3-1.0) mg/dL AST (13-39) Units/L ALT (7-52) Units/L Alkaline Phosphatase (34-104) Units/L Ammonia 26 (16-53) mcmol/L Serum Total Protein (6.4-8.9) g/dL Albumin (3.5-5.7) g/dL Globulin (2.4-3.5) g/dL Albumin/Globulin Ratio (1.1-2.2) Attestation Statement - Attestation Attestation: I, Zelalem Alaniz DO, examined this patient [id number] and my medical decision-making was reviewed with Dr. Kay Tovar, Resident Physician. I agree with the documented findings, disposition and treatment plan as described except to the extent set forth below. Please see my progress notes for details. 77-year-old male presents to the emergency room by the [place] transport team for evaluation of potential stroke like symptoms. Patient had onset of some confusion and difficulty with cognitive thought process and difficulty with speech yesterday afternoon. He was seen his doctor up in [place] and then discharged home from the [facility] facility after. Patient came in today and family is talking to them and they were concerned about the speech related issues and did not [facility] For evaluation. They did a workup at their facility and had a negative CT scan. The family was still concerned about his speech. Neurologic evaluation is relatively negative outside of a slight difference in the speech. Patient also feels like he has some difficulty with the movement of his tongue. Cranial nerves II through XII are grossly intact. He has no signs of cerebellar dysfunction or ataxia. He has no neurologic symptoms or deficits at this time. Lungs are clear heart is regular abdomen is soft. Extremities are normal and presentation. Patient is on Xarelto. The symptoms otherwise unremarkable and appear to be resolving. The patient did ambulate from the cot from EMS to the bed without any difficulty. He has no acute neurologic deficits this time. Heart is regular and lungs are clear. Patient denies any chest pain fevers chills nausea vomiting or diarrhea. No shortness of breath. No headache or vision change. Patient will have a evaluation with labs completed here in the emergency room. The labs were not visualized initially from the [place] [facility]. Patient has negative CT and chest x-ray from nurse facility but they were ordered prior to the review of the chart. [id number] Patient has negative laboratory workup at this time. CT and chest x-ray are unremarkable. Patient's symptoms had not changed. Patient was discussed with the hospitalist Dr. Arana. No other recommendations or concerns were noted. Detailed review of the symptoms presentation were discussed. Family was informed of the plan and they are comfortable with this plan. Patient is otherwise clinically stable at the time of admission. We will continue to monitor here until admission processes established. Patient symptom onset has been greater than 24 hours is not a clinical candidate for any other intervention or evaluation his symptoms appear to be resolving.
[2018-01-19 21:33] LABS: Bilirubin,Urine Negative (Negative); Blood,Urine Trace (Negative); Clarity,Urine Clear (Clear); Color,Urine Yellow (Yellow); Glucose,Urine (UA) Normal (Normal); Ketones,Urine Negative (Negative); Leukocyte Esterase,Urine Negative (Negative); Nitrite,Urine Negative (Negative); PH,Urine 6.5 pH Units (5.0-8.0); Protein,Urine Negative (Neg-Trace); Specific Gravity,Urine < 1.005 (1.010-1.025); Urobilinogen,Urine Normal (Normal)
[2018-01-19 21:36] LABS: Bacteria,Urine None Seen per hpf (None-Few); Hyaline Casts,Urine None Seen per lpf (None-Few); RBC,Urine 0-3 per hpf (0-3); Squamous Epithelial Cell,Urine Few per lpf (None-Few); WBC,Urine 0-3 per hpf (0-3)
[2018-01-20] MEDS ORDERED: Naloxone 0.4 MG/ML INJ IVP PRN (03:53)
[2018-01-20 04:18] LABS: Hematocrit 33.7 % (37.5-50.1); Mean Corpuscular HGB Conc 32.6 g/dL (31.6-35.5); Mean Corpuscular Hemoglobin 30.6 pg (28.0-33.3); Mean Corpuscular Volume 93.9 fL (83.0-100.0); Mean Platelet Volume 10.2 fL (9.4-12.4); Platelet Count 206 K/mcL (140-400); Red Blood Count 3.59 M/mcL (4.19-5.50); Red Cell Distribution Width 14.6 % (11.5-14.5)
[2018-01-20] MEDS ORDERED: Dextrose Gel 15 GM/37.5 ML TUBE PO PRN ×2 (04:20)
[2018-01-20] MEDS ORDERED: *HR* Dextrose 50 % in Water (Syg) 50 ML SYRINGE IVP PRN (04:20)
[2018-01-20] MEDS ORDERED: D5% in Water 1,000 ML IVC PRN (04:20)
[2018-01-20 04:40] LABS: BUN/Creatinine Ratio 12 (6-26); Blood Urea Nitrogen 11 mg/dL (8-23); Calcium 9.4 mg/dL (8.6-10.3); Carbon Dioxide 30 mEq/L (23-29); Chloride 103 mEq/L (98-107); Glucose 147 mg/dL (70-105); Osmolality,Calculated 288 (280-300); Potassium 4.1 mEq/L (3.5-5.1); Sodium 138 mEq/L (136-145); eGFR For Non-African Americans > 60 (> 60)
[2018-01-20] MEDS ORDERED: Insulin LISPRO 300 UNITS/3 ML VIAL SQ SCH (06:00)
--- NOTE | 2018-01-20 06:21 | Internal Med History&Physical ---
Date of Encounter: 01/20/18 Time of Encounter: 03:30 Internal Medicine - H&P: HPI Chief complaint: CVA Admitted From: Emergency Dept Plans for Post Hospital Care: Home History of present illness: Mr. Gayle is a 77 year old male Patient presented to the emergency room with history of confusion, slurring of speech and change in gait. He states that the night prior to his admission he noticed that he was stuttering when he talked and slurring his words slightly. His family also noticed some confusion and even had asked his daughter how to go to bed because he could not remember how. This concerned him and his family so they brought him to the [facility] to be evaluated. Patient also is noticing that he would take smaller steps than normal when he would walk. When patient arrived to the [facility], they sent him to [facility] for further workup as they were concerned for possible stroke. In the emergency room patient's CBC was within normal limits, BMP showed a glucose of 172 and a BNP of 145. Chest x-ray was stable and head CT showed no acute process. Patient was just here and admitted on December 26 for chest pain and palpitations. He was found to be in atrial fibrillation and was started on a Cardizem drip. He was discharged on December 28 and started on Xarelto. He was admitted to the hospital for continued workup of his CVA. Upon my assessment patient states that he still notices that he was slurring his words. He denies nausea, vomiting, diarrhea, constipation, chest pain and abdominal pain. He denies missing doses of his Xarelto as well. Past Med Surg Social Fam HX - Past Medical History Medical history: arthritis, COPD, diabetes, hyperlipidemia, hypertension, myocardial infarction, TIA Psychiatric history: no psych history - Past Surgical History Surgical History: angioplasty/stent, orthopedic, other Additional surgical history: right rotator cuff repair - Social History Smoking Status: Former smoker Smokeless Tobacco Status: No Alcohol use: occasionally Drug use: none - Family History Mother Living Status: Cause of : [place] Hx Family Cardiac Disorders: Yes ([place]) Hx Family Respiratory Disorders: Yes (emphysema) Hx Family Cancer: No Father Living Status: Cause of : [place] Hx Family Cardiac Disorders: No Hx Family Respiratory Disorders: No Hx Family Cancer: No Hx Family GI Disorders: No Hx Family Endocrine Disorder: No Hx Family Neuromuscular Disorders: No Hx Family Neurologic Disorders: No Hx Family HEENT Disorders: No Hx Family Autoimmune Disorders: No Internal Medicine - H&P: Meds Albuterol Sulfate [Ventolin Hfa] 2 puff IH Q4H PRN 12/26/17 [History] Aspirin [Adult Aspirin] 81 mg PO DAILY 12/26/17 [History] Atorvastatin [Lipitor] 40 mg PO HS 12/26/17 [History] Budesonide/Formoterol 160/4.5 [Symbicort 160/4.5] 2 puff IH BIDR 12/26/17 [ History] Cholecalciferol (D-3) [Vitamin D] 1,000 unit PO DAILY 12/26/17 [History] Insulin Glargine [Lantus] 48 unit SQ HS 12/26/17 [History] Magnesium Oxide [Magnesium] 200 mg PO DAILY 12/26/17 [History] Meloxicam [Mobic] 7.5 mg PO DAILY 12/26/17 [History] Vit C/E/Zn/Coppr/Lutein/Zeaxan [Preservision Areds 2 Softgel] 1 cap PO DAILY 02/02 [History] Rivaroxaban [Xarelto] 20 mg PO DAILY #30 tablet 12/28/17 [Rx] Metoprolol Succinate [Toprol Xl] 75 mg PO BID 01/19/18 [History] Tiotropium [place] [Spiriva Respimat] 2 puff IH QAM 01/19/18 [History] 3 Allergy/AdvReac Type Severity Reaction Status Date / Time acetaminophen [From Vicodin] Allergy Headache Verified 12/26/17 04:44 hydrocodone [From Vicodin] Allergy Headache Verified 12/26/17 04:44 simvastatin Allergy Nausea Verified 12/26/17 04:44 All Systems PM: A 10-system review of systems was performed and is negative for pertinent findings except as documented above in the HPI. - Constitutional Vitals: Temp Pulse Resp BP Pulse Ox 97.8 F 72 16 176/92 94 01/20/18 03:28 01/20/18 03:28 01/20/18 03:28 01/20/18 03:28 01/20/18 03:28 General appearance: Present: cooperative, A&O X 3, pleasant, no acute distress, answers questions appropriately Exam: As above - Head Head exam: Present: normal inspection - Eye Eye exam: Present: EOMI, normal appearance - Neck Neck exam general surgery: Present: full ROM. Absent: tenderness - Respiratory Respiratory exam: Present: CTAB. Absent: chest wall tenderness, decreased breath sounds, rales, respiratory distress, wheezes - Cardiovascular Cardiovascular exam: Present: RRR. Absent: diastolic murmur, systolic murmur - GI/Abdominal GI/Abdominal exam: Present: normal bowel sounds, soft. Absent: tenderness - Extremities Exam Extremities exam: Present: warm, radial pulses palpable and symmetrical. Absent : calf tenderness, pedal edema, tenderness - Neurological Exam Neurological exam: Present: no focal deficits, strengths equal and symetr throughout, speech deficit. Absent: motor sensory deficit, pronater drift, facial droop Additional comments: Patient is slightly slurring his words. - Psychiatric Psychiatric exam: Present: normal mood. Absent: agitated - Skin Skin exam: Present: dry, normal color, warm. Absent: rash Internal Med - H&P Results - Labs CBC & Chem 7: 01/20/18 04:01 01/20/18 04:01 - Assessment and plan (1) CVA (cerebral vascular accident) Current Visit: Yes Status: Acute Assessment and plan: Patient presented with slurred speech, initial CT head showed no acute intracranial abnormality. Patient had no lateral signs of weakness, but did state that he feels overall weaker than normal, and has been walking with a shuffling gait. MRI in AM Speech therapy evaluation PT and OT evaluation Qualifiers: CVA mechanism: unspecified Qualified Code(s): I63.9 - Cerebral infarction, unspecified (2) Slurred speech Current Visit: Yes Status: Acute Assessment and plan: Likely secondary to CVA. MRI in AM Speech therapy consultation (3) IDDM (insulin dependent diabetes mellitus) Current Visit: No Status: Chronic Assessment and plan: Patient takes Lantus at home. Continue to monitor blood sugars Basal insulin at night Insulin sliding scale with meals. (4) Atrial fibrillation Current Visit: Yes Status: Acute Assessment and plan: Currently controlled, on metoprolol and xarelto. Qualifiers: Atrial fibrillation type: paroxysmal Qualified Code(s): I48.0 - Paroxysmal atrial fibrillation (5) DVT prophylaxis Current Visit: No Status: Acute Assessment and plan: Patient on xarelto, denies missing doses. No sign of brain bleed on CT head. Continue xarelto. - Time Spent With Patient Total time spent is greater than 50% in coordination of care (as documented) at patient's floor/unit and/or counseling patient: Greater than 35 minutes
[2018-01-20] MEDS: *HR* Rivaroxaban 10 MG TABLET PO SCH (09:36)
[2018-01-20] MEDS: Aspirin Enteric Coated 81 MG Tablet PO SCH (09:36)
[2018-01-20] MEDS: Metoprolol XL (24 HR) Succ 50 MG TAB.ER.24H PO SCH ×2 (09:37→20:32)
--- NOTE | 2018-01-20 10:16 | Event Note ---
Date of Encounter: 01/20/18 Time of Encounter: 10:13 Patient seen and examined at bedside. H&P reviewed and agree with history and physical assessment and plan. Patient admitted with new speech deficit as well as confusion concerning for CVA. Patient states that he is no longer confused and feeling his speech is improving however still not back to baseline. Patient subjectively denies any physical weakness MRI pending We will obtain ultrasound carotids We will risk stratify with A1c and lipid panel If evidence of CVA on MRI consider changing to Plavix from aspirin Continue Xarelto for stroke prophylaxis secondary to atrial fibrillation Gen- nad, sitting on side of bed Cardio -sinus rhythm with controlled rate no murmurs appreciated Neuro - patient continues to exhibit dysarthria without aphasia; no sensory deficits appreciated, no motor deficits appreciated
[2018-01-20 10:41] LABS: Estimated Average Glucose 163 mg/dl; Hemoglobin A1C 7.3 %
[2018-01-20 10:54] LABS: Chol/HDL Ratio 3.9 (0-4.9)
[2018-01-20] MEDS: Insulin LISPRO 300 UNITS/3 ML VIAL SQ SCH ×2 (11:40→17:15)
--- NOTE | 2018-01-20 17:52 | Event Note ---
Date of Encounter: 01/20/18 Time of Encounter: 17:51 Received call from radiology Pt's MRI came back as positive for acute CVA in Left steven area. Pt is already on ASA and Xarelto for anti coag... Consulted Neuro
[2018-01-20] MEDS: Insulin DETEMIR 100 UNIT/ML X5UNITS SQ SCH (20:32)
[2018-01-21 05:17] LABS: Basophils % 0.3 %; Eosinophils # 0.3 K/mcL (0.0-0.6); Eosinophils % 5.5 %; Hematocrit 34.3 % (37.5-50.1); Immature Granulocytes % 0.3 % (0-4); Lymphocytes # 1.8 K/mcL (0.6-4.6); Lymphocytes % 29.3 %; Mean Corpuscular HGB Conc 32.1 g/dL (31.6-35.5); Mean Corpuscular Hemoglobin 30.5 pg (28.0-33.3); Mean Platelet Volume 10.9 fL (9.4-12.4); Monocytes # 0.5 K/mcL (0.0-1.3); Monocytes % 8.8 %; Neutrophils # 3.4 K/mcL (1.6-8.9); Platelet Count 223 K/mcL (140-400); Red Blood Count 3.61 M/mcL (4.19-5.50); Red Cell Distribution Width 14.6 % (11.5-14.5); Segmented Neutrophils % 55.8 %
[2018-01-21 05:31] LABS: BUN/Creatinine Ratio 13 (6-26); Blood Urea Nitrogen 12 mg/dL (8-23); Calcium 9.5 mg/dL (8.6-10.3); Carbon Dioxide 32 mEq/L (23-29); Chloride 103 mEq/L (98-107); Glucose 158 mg/dL (70-105); Magnesium 1.8 mg/dL (1.6-2.6); Osmolality,Calculated 291 (280-300); Phosphorous 3.9 mg/dL (2.7-4.5); Potassium 4.1 mEq/L (3.5-5.1); Sodium 139 mEq/L (136-145); eGFR For Non-African Americans > 60 (> 60)
[2018-01-21] MEDS: Aspirin Enteric Coated 81 MG Tablet PO SCH (07:59)
[2018-01-21] MEDS: Metoprolol XL (24 HR) Succ 50 MG TAB.ER.24H PO SCH ×2 (07:59→20:39)
[2018-01-21] MEDS: Insulin LISPRO 300 UNITS/3 ML VIAL SQ SCH ×3 (07:59→17:22)
[2018-01-21] MEDS: *HR* Rivaroxaban 10 MG TABLET PO SCH (07:59)
--- NOTE | 2018-01-21 10:10 | Internal Med Progress Note ---
Hospitalist Progress Note - Encounter Date of Encounter: 01/21/18 Time of Encounter: 10:10 - Subjective Interval History: Patient seen and examined at bedside. Patient no acute overnight events. MRI of the brain did reveal acute left infarct in the steven. Neurology has been consulted. Patient continues to state that his speech seems normal to him but still sounds slightly slurred to me. Patient denies any chest pain, shortness breath, nausea, vomiting, diarrhea. Blood pressure is elevated; now it is been 24 hours we will resume the patient's lisinopril. - Exam Vitals: Temp Pulse Resp BP Pulse Ox 97.5 F L 65 16 183/89 93 01/21/18 07:37 01/21/18 07:37 01/21/18 07:37 01/21/18 07:37 01/21/18 07:37 Exam: Constitutional: No acute distress, Alert Psych: AAO x 3 HEENT: NCAT, EOMI Neck: supple, no JVD Cardio: regular rate and rhythm, +s1s2 Resp: clear to ascultation bilaterally, no wheezes/rales/ronchi Abd: soft, non tender/non distended, positive bowel sounds Extremities: no clubbing/cyanosis/edema appreciated Neuro: Continues to have slight dysarthria, no aphasia, no sensory deficits, no appreciable motor deficits - Assessment and Plan (1) CVA (cerebral vascular accident) Current Visit: Yes Status: Acute Assessment and Plan: Patient presented with confusion slurring speech and changing gait -Symptoms mostly resolved although the patient still has some mild slurring of speech -MRI revealed acute CVA of left central steven -Continue aspirin and Xarelto -Neurology has been consult and for any further recommendations -Patient has statin allergy -Order limited 2-D echocardiogram to evaluate for thrombus as the patient was recently diagnosed with A. 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 -systolic and diastolic dysfunction -Continue beta shelley and aspirin and MUNIR inhibitor -Currently euvolemic (5) HTN (hypertension) Current Visit: Yes Status: Chronic Assessment and Plan: -Continue beta shelley -Resume MUNIR inhibitor -continue to monitor blood pressure may need to uptitrate lisinopril and/or add third agent (6) IDDM (insulin dependent diabetes mellitus) Current Visit: Yes Status: Chronic Assessment and Plan: -Continue current regimen -Monitor Accu-Cheks DVT Prophylaxis: -xarelto - Summary of Assessment and Plan Summary of Assessment and Plan: Patient is supposed 24 hours status post acute CVA now will manage his hypertension; neurology has been consulted as well - Time Spent with Patient Total time spent is greater than 50% in coordination of care (as documented) at patient's floor/unit and/or counseling patient: 25 - 35 minutes Plan of Care Discussed with: patient Internal Medicine: Result - Labs CBC & Chem 7: 01/21/18 03:55 01/21/18 03:55 Labs: Short CBC 01/21/18 Range/Units 03:55 WBC 6.0 (4.3-11.1) K/mcL Hgb 11.0 L (12.9-16.9) g/dL Hct 34.3 L (37.5-50.1) % Plt Count 223 (140-400) K/mcL Neutrophils # 3.4 (1.6-8.9) K/mcL BMP 01/21/18 03:55 Sodium 139 Potassium 4.1 Chloride 103 Carbon Dioxide 32 H BUN 12 Creatinine 0.94 Glucose 158 H Calcium 9.5 - ABG Interpretation ABG results: PT/INR, D-dimer PT 14.3 Seconds (9.4-12.1) H 01/19/18 19:37 Consult Discharge Plan - Plan [facility]errals: [facility] [Primary Care Provider] - (1) CVA (cerebral vascular accident) Qualifiers: CVA mechanism: unspecified Qualified Code(s): I63.9 - Cerebral infarction, unspecified (2) Atrial fibrillation Qualifiers: Atrial fibrillation type: paroxysmal Qualified Code(s): I48.0 - Paroxysmal atrial fibrillation (4) HFrEF (heart failure with reduced ejection fraction) Qualifiers: Heart failure chronicity: chronic Qualified Code(s): I50.22 - Chronic systolic (congestive) heart failure (5) HTN (hypertension) Qualifiers: Hypertension type: essential hypertension Qualified Code(s): I10 - Essential (primary) hypertension
[2018-01-21] MEDS ORDERED: Tiotropium 18 MCG inhalation IH SCH (10:15)
[2018-01-21] MEDS: Budesonide/Formoterol 160/4.5 1 PUFF INH IH SCH ×2 (10:54→21:00)
[2018-01-21] MEDS: Tiotropium 18 MCG inhalation IH SCH (10:56)
[2018-01-21] MEDS: Lisinopril 20 MG TABLET PO SCH (13:21)
--- NOTE | 2018-01-21 16:18 | Neurology - Consult Note ---
Date of Encounter: 01/21/18 Time of Encounter: 16:15 Assessment and Plan (1) Brainstem infarct, acute Current Visit: Yes Status: Acute Patient at this time has improved. Speech remains slurred and dysarthric however he denies any difficulty with swallowing. He has good functional strength. His my suspicion that the infarct occurred as a result of his risk factors for small vessel disease which include hypertension and diabetes. I would simply recommend increasing his aspirin to a full adult aspirin and maintaining the Xarelto for treatment of atrial fibrillation. Otherwise I believe he should also maintain statin therapy and resume his antihypertensives. You may discharge him at your discretion. History of Present Illness HPI: Mr. Gayle is a 77 year old male who is seen for neurologic consultation at the request of the hospitalist group due to an acute brainstem infarct. Mr. Woods states that he was sitting at home relaxing when suddenly he had difficulty with slurred speech. He denied any other symptoms associated. He denied headache, denied facial paresthesias, denied visual changes, denies numbness tingling or weakness of the arms or legs. Denied balance difficulty or clumsiness. His speech remains slurred. However he has been able to ambulate in the room going to the bathroom. Apparently he was seen here to [facility] on December 26 and diagnosed with each of fibrillation and started on Xarelto at that time. Upon arrival to the hospital for this admission his blood pressure was elevated at 183/87. He was taking Xarelto and aspirin 81 mg prior to this admission. He also takes a statin and was on lisinopril. At this time he is in no acute distress. He states she has been able to swallow liquids and solids without difficulty. I did personally review the MRI scan and it does reveal an acute diffusion deficit in the region of the left central steven. There is also a significant deep white matter ischemic change. Past Med Surg Social Fam HX - Past Medical History Medical history: arthritis, COPD, diabetes, hyperlipidemia, hypertension, myocardial infarction, TIA Psychiatric history: no psych history - Past Surgical History Surgical History: angioplasty/stent, orthopedic, other Additional surgical history: right rotator cuff repair - Social History Smoking Status: Former smoker Smokeless Tobacco Status: No Alcohol use: occasionally Drug use: none - Family History Mother Living Status: Cause of : [place] Hx Family Cardiac Disorders: Yes ([place]) Hx Family Respiratory Disorders: Yes (emphysema) Hx Family Cancer: No Father Living Status: Cause of : [place] Hx Family Cardiac Disorders: No Hx Family Respiratory Disorders: No Hx Family Cancer: No Hx Family GI Disorders: No Hx Family Endocrine Disorder: No Hx Family Neuromuscular Disorders: No Hx Family Neurologic Disorders: No Hx Family HEENT Disorders: No Hx Family Autoimmune Disorders: No Medications and Allergies Albuterol Sulfate [Ventolin Hfa] 2 puff IH Q4H PRN 12/26/17 [History] Aspirin [Adult Aspirin] 81 mg PO DAILY 12/26/17 [History] Atorvastatin [Lipitor] 40 mg PO HS 12/26/17 [History] Budesonide/Formoterol 160/4.5 [Symbicort 160/4.5] 2 puff IH BIDR 12/26/17 [ History] Cholecalciferol (D-3) [Vitamin D] 1,000 unit PO DAILY 12/26/17 [History] Insulin Glargine [Lantus] 48 unit SQ HS 12/26/17 [History] Magnesium Oxide [Magnesium] 200 mg PO DAILY 12/26/17 [History] Meloxicam [Mobic] 7.5 mg PO DAILY 12/26/17 [History] Vit C/E/Zn/Coppr/Lutein/Zeaxan [Preservision Areds 2 Softgel] 1 cap PO DAILY 02/02 [History] Rivaroxaban [Xarelto] 20 mg PO DAILY #30 tablet 12/28/17 [Rx] Metoprolol Succinate [Toprol Xl] 75 mg PO BID 01/19/18 [History] Tiotropium [place] [Spiriva Respimat] 2 puff IH QAM 01/19/18 [History] 3 Allergy/AdvReac Type Severity Reaction Status Date / Time acetaminophen [From Vicodin] Allergy Headache Verified 12/26/17 04:44 hydrocodone [From Vicodin] Allergy Headache Verified 12/26/17 04:44 simvastatin Allergy Nausea Verified 12/26/17 04:44 All Systems: The remainder of the systems were reviewed and are negative Review of Systems: The balance of the systems review is negative. Physical Examination - Vital Signs Vital Signs: Initial Vital Signs Temp Pulse Resp BP Pulse Ox 97.7 F 75 20 183/91 97 01/19/18 18:35 01/19/18 18:35 01/19/18 18:35 01/19/18 18:35 01/19/18 18:35 - Neurologic Detailed motor examination: grossly full strength in all extremities (He does have a slight left pronator drift.) Detailed sensory examination: other (Decreased sensation to pinprick distally.) Reflex and gait examination: other (Deep tendon reflexes are diminished throughout.) Mental Status Examination: awake, alert, oriented to person, oriented to place, oriented to time, follows commands appropriately, answers questions appropriately, no agnosia, no aphasia, no aproxia Cranial nerve examination: PERRL, EOMI, visual betancur intact, corneal reflexes brisk symmetrically, sensory to face intact, mastication intact, no facial asymmetry is present, hearing is intact symmetrically, tongue protrudes midline Results - Laboratory Findings CBC and BMP: 01/21/18 03:55 01/21/18 03:55 Abnormal lab findings: Abnormal lab results RBC 3.61 M/mcL (4.19-5.50) L 01/21/18 03:55 Hgb 11.0 g/dL (12.9-16.9) L 01/21/18 03:55 Hct 34.3 % (37.5-50.1) L 01/21/18 03:55 RDW 14.6 % (11.5-14.5) H 01/21/18 03:55 PT 14.3 Seconds (9.4-12.1) H 01/19/18 19:37 APTT 39.3 Seconds (26.0-36.0) H 01/19/18 19:37 Carbon Dioxide 32 mEq/L (23-29) H 01/21/18 03:55 Glucose 158 mg/dL (70-105) H 01/21/18 03:55 POC Glucose 157 mg/dL (70-99) H 01/20/18 17:15 Hemoglobin A1c 7.3 % (-5.6) H 01/20/18 10:20 B-Natriuretic Peptide 145 pg/mL (Less than 100) H 01/19/18 19:37 Serum Total Protein 6.2 g/dL (6.4-8.9) L 01/19/18 19:37 Triglycerides 182 mg/dL (< 150) H 01/20/18 10:20 VLDL Cholesterol, Calc 36 mg/dL (< 31) H 01/20/18 10:20 HDL Cholesterol 31 mg/dL (40-59) L 01/20/18 10:20 Ur Specific [place] < 1.005 (1.010-1.025) L 01/19/18 21:23 Urine Blood Trace (Negative) H 01/19/18 21:23 Consult Discharge Plan - Plan Referrals: [facility] [Primary Care Provider] -
[2018-01-21] MEDS: Insulin DETEMIR 100 UNIT/ML X5UNITS SQ SCH (20:40)
[2018-01-22 05:10] LABS: Basophils % 0.4 %; Eosinophils # 0.3 K/mcL (0.0-0.6); Eosinophils % 4.7 %; Hematocrit 34.4 % (37.5-50.1); Hemoglobin 11.1 g/dL (12.9-16.9); Immature Granulocytes % 0.4 % (0-4); Lymphocytes # 1.8 K/mcL (0.6-4.6); Lymphocytes % 26.7 %; Mean Corpuscular HGB Conc 32.3 g/dL (31.6-35.5); Mean Corpuscular Hemoglobin 30.7 pg (28.0-33.3); Mean Platelet Volume 10.8 fL (9.4-12.4); Monocytes # 0.6 K/mcL (0.0-1.3); Platelet Count 235 K/mcL (140-400); Red Blood Count 3.62 M/mcL (4.19-5.50); Red Cell Distribution Width 14.6 % (11.5-14.5); Segmented Neutrophils % 58.8 %
[2018-01-22 05:31] LABS: BUN/Creatinine Ratio 16 (6-26); Blood Urea Nitrogen 15 mg/dL (8-23); Calcium 9.7 mg/dL (8.6-10.3); Carbon Dioxide 30 mEq/L (23-29); Chloride 101 mEq/L (98-107); Glucose 179 mg/dL (70-105); Osmolality,Calculated 291 (280-300); Potassium 4.1 mEq/L (3.5-5.1); Sodium 138 mEq/L (136-145); eGFR For Non-African Americans > 60 (> 60)
[2018-01-22] MEDS ORDERED: Perflutren Lipid Microsphere 1.3 ML in 0.9 % Sodium Chloride 8.7 ML IVP ONE (07:30)
[2018-01-22 07:31] VITALS: BP 131/84
[2018-01-22] MEDS: Lisinopril 20 MG TABLET PO SCH (08:51)
[2018-01-22] MEDS: Metoprolol XL (24 HR) Succ 50 MG TAB.ER.24H PO SCH (08:51)
[2018-01-22] MEDS: *HR* Rivaroxaban 10 MG TABLET PO SCH (08:51)
[2018-01-22] MEDS: Insulin LISPRO 300 UNITS/3 ML VIAL SQ SCH ×2 (08:52→11:32)
[2018-01-22] MEDS ORDERED: Aspirin 325 MG TABLET PO SCH (09:00)
[2018-01-22] MEDS: Budesonide/Formoterol 160/4.5 1 PUFF INH IH SCH (10:16)
[2018-01-22] MEDS: Tiotropium 18 MCG inhalation IH SCH (10:16)
--- NOTE | 2018-01-22 10:35 | Discharge Summary ---
- NOTES TO OUTPATIENT PROVIDER Notes to Outpatient Provider: Mr. Gayle 77-year-old male who presented with chief complaint of dysarthria and slurred speech along with confusion. The patient was admitted for CVA workup MRI revealed acute left central steven infarct. Patient's carotid ultrasounds were unremarkable. Patient did have limited echocardiogram to evaluate for any thrombus as the patient was recently diagnosed with A. fib. This has been completed but not read please follow up on report. Although management would likely not change the patient maintains on Xarelto. Patient was seen by neurology who recommended changing aspirin to full dose aspirin which was done. Patient's blood pressure was adequately controlled with the resumption of his home medications. Patient should follow with his primary care physician within one week. Patient instructed to return to the emergency department for any worsening or recurrence of symptoms. The patient status did improve throughout his stay and he states that baseline. Patient is stable for discharge and agreeable for discharge on Tuesday, 2017. All questions answered. Date of Encounter: 01/22/18 Time of Encounter: 10:32 - Discharge Diagnosis (1) CVA (cerebral vascular accident) Priority: Primary Status: Acute Qualifiers: CVA mechanism: unspecified Qualified Code(s): I63.9 - Cerebral infarction, unspecified (2) Atrial fibrillation Priority: Secondary Status: Acute Qualifiers: Atrial fibrillation type: paroxysmal Qualified Code(s): I48.0 - Paroxysmal atrial fibrillation (3) Slurred speech Priority: Secondary Status: Acute (4) HFrEF (heart failure with reduced ejection fraction) Priority: Secondary Status: Chronic Qualifiers: Heart failure chronicity: chronic Qualified Code(s): I50.22 - Chronic systolic (congestive) heart failure (5) HTN (hypertension) Priority: Secondary Status: Chronic Qualifiers: Hypertension type: essential hypertension Qualified Code(s): I10 - Essential (primary) hypertension (6) IDDM (insulin dependent diabetes mellitus) Priority: Secondary Status: Chronic Hospital course: Mr. Gayle 77-year-old male who presented with chief complaint of dysarthria and slurred speech along with confusion. The patient was admitted for CVA workup MRI revealed acute left central steven infarct. Patient's carotid ultrasounds were unremarkable. Patient did have limited echocardiogram to evaluate for any thrombus as the patient was recently diagnosed with A. fib. This has been completed but not read please follow up on report. Although management would likely not change the patient maintains on Xarelto. Patient was seen by neurology who recommended changing aspirin to full dose aspirin which was done. Patient's blood pressure was adequately controlled with the resumption of his home medications. Patient should follow with his primary care physician within one week. Patient instructed to return to the emergency department for any worsening or recurrence of symptoms. The patient status did improve throughout his stay and he states that baseline. Patient is stable for discharge and agreeable for discharge on 01/22/2018. All questions answered. Patient states that he is on 20 mg of lisinopril and this was restarted however not on home medication list will give prescription for this. Discharge discussed with: patient, nurse - Time Spent with Patient Total time spent providing and/or coordinating discharge services: Less than 30 minutes - Discharge Medications Prescriptions: Aspirin 325 mg PO DAILY 30 Days #30 tablet Lisinopril [Zestril] 20 mg PO DAILY 30 Days #30 tablet Home Medications: Albuterol Sulfate [Ventolin Hfa] 2 puff IH Q4H PRN 12/26/17 [History] Aspirin [Adult Aspirin] 81 mg PO DAILY 12/26/17 [History] Atorvastatin [Lipitor] 40 mg PO HS 12/26/17 [History] Budesonide/Formoterol 160/4.5 [Symbicort 160/4.5] 2 puff IH BIDR 12/26/17 [ History] Cholecalciferol (D-3) [Vitamin D] 1,000 unit PO DAILY 12/26/17 [History] Insulin Glargine [Lantus] 48 unit SQ HS 12/26/17 [History] Magnesium Oxide [Magnesium] 200 mg PO DAILY 12/26/17 [History] Meloxicam [Mobic] 7.5 mg PO DAILY 12/26/17 [History] Vit C/E/Zn/Coppr/Lutein/Zeaxan [Preservision Areds 2 Softgel] 1 cap PO DAILY 02/02 [History] Rivaroxaban [Xarelto] 20 mg PO DAILY #30 tablet 12/28/17 [Rx] Metoprolol Succinate [Toprol Xl] 75 mg PO BID 01/19/18 [History] Tiotropium [place] [Spiriva Respimat] 2 puff IH QAM 01/19/18 [History] Aspirin 325 mg PO DAILY 30 Days #30 tablet 01/22/18 [Rx] Lisinopril [Zestril] 20 mg PO DAILY 30 Days #30 tablet 01/22/18 [Rx] Allergies/Adverse Reactions: 3 Allergy/AdvReac Type Severity Reaction Status Date / Time acetaminophen [From Vicodin] Allergy Headache Verified 12/26/17 04:44 hydrocodone [From Vicodin] Allergy Headache Verified 12/26/17 04:44 simvastatin Allergy Nausea Verified 12/26/17 04:44 Date of admission: 01/20/18 04:44 [facility] care physician: [facility] Consults: 01/20/18 17:50 Consult to Neurology [CONS] Routine Consulting Provider: [facility] Reason for Consult: Acute CVA Time Notified: 17:50 Call Completed: Yes - Constitutional Vitals: Temp Pulse Resp BP Pulse Ox 98 F 70 16 131/84 93 01/22/18 07:26 01/22/18 07:26 01/22/18 07:26 01/22/18 07:26 01/22/18 07:26 General appearance: Present: cooperative, A&O X 3, pleasant, no acute distress, answers questions appropriately Exam: Constitutional: No acute distress, Alert Psych: AAO x 3 HEENT: NCAT Neck: supple Cardio: regular rate and rhythm, +s1s2 Resp: clear to ascultation bilaterally Abd: soft, non tender/non distended, positive bowel sounds Extremities: no clubbing/cyanosis/edema appreciated Neuro: Dysarthria seems to be resolved no aphasia, no sensory deficits, no appreciable motor deficits - Patient Status Disposition: Home, Self-Care Condition: Good Functional capacity at discharge: independent ambulation Overall status at discharge: patient is back to baseline - Discharge Instructions Follow [facility] With: [facility] [Primary Care Provider] - - Diet and Activity Activity: increase activity as tolerated Diet: advance to your usual diet
--- NOTE | 2018-01-23 15:53 | Electrocardiograph Report ---
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
== END 2018-01-22 11:36 | disposition home or self-care (01) | DRG 65 ==
LOC: EMEROOARM 18:31 → 3BNU 18:31
PROVIDERS: ADMIT Family Medicine; ATTEND Family Medicine

== ENCOUNTER 2018-04-16 13:14 | Observation (INO) ==
--- NOTE | 2018-04-16 13:30 | Emergency Department Note ---
Disposition Clinical Impression: Elevated lactic acid level Hematuria Qualifiers: Hematuria type: unspecified type Qualified Code(s): R31.9 - Hematuria, unspecified UTI (urinary tract infection) Qualifiers: Urinary tract infection type: site unspecified Hematuria presence: with hematuria Qualified Code(s): N39.0 - Urinary tract infection, site not specified Disposition: Admitted As Inpatient Referrals: NONE,PCP [Primary Care Provider] - Forms: ED Satisfaction Letter Time of Disposition: 18:29 General Adult HPI - General Stated complaint: KSENIA, hematuria Time Seen by Provider: 04/16/18 13:17 Source: patient Limitations: no limitations - History of Present Illness Pain Scale: 0 - Related Data Home Medications Medication Instructions Recorded Confirmed Albuterol Sulfate [Ventolin Hfa] 2 puff IH Q4H PRN 12/26/17 01/19/18 Aspirin [Adult Aspirin] 81 mg PO DAILY 12/26/17 01/19/18 Atorvastatin [Lipitor] 40 mg PO HS 12/26/17 01/19/18 Budesonide/Formoterol 160/4.5 2 puff IH BIDR 12/26/17 01/19/18 [Symbicort 160/4.5] Cholecalciferol (D-3) [Vitamin D] 1,000 unit PO DAILY 12/26/17 01/19/18 Insulin Glargine [Lantus] 48 unit SQ HS 12/26/17 01/19/18 Magnesium Oxide [Magnesium] 200 mg PO DAILY 12/26/17 01/19/18 Meloxicam [Mobic] 7.5 mg PO DAILY 12/26/17 01/19/18 Vit C/E/Zn/Coppr/Lutein/Zeaxan 1 cap PO DAILY 12/26/17 01/19/18 [Preservision Areds 2 Softgel] Metoprolol Succinate [Toprol Xl] 75 mg PO BID 01/19/18 01/19/18 Tiotropium [place] [Spiriva 2 puff IH QAM 01/19/18 01/19/18 Respimat] Previous Rx's Medication Instructions Recorded Rivaroxaban [Xarelto] 20 mg PO DAILY #30 tablet 12/28/17 Aspirin 325 mg PO DAILY 30 Days #30 tablet 01/22/18 Lisinopril [Zestril] 20 mg PO DAILY 30 Days #30 tablet 01/22/18 Allergies Allergy/AdvReac Type Severity Reaction Status Date / Time acetaminophen [From Vicodin] Allergy Headache Verified 04/09/18 19:01 hydrocodone [From Vicodin] Allergy Headache Verified 04/09/18 19:01 simvastatin Allergy Nausea Verified 04/09/18 19:01 Past Medical History - Past Medical History Medical history: Reports: arthritis, atrial fibrillation, COPD, diabetes, hyperlipidemia, hypertension, myocardial infarction, TIA Surgical history: Reports: angioplasty/stent, orthopedic, other Psychiatric history: Reports: no psych history - Social History Smoking Status: Former smoker Smokeless Tobacco Status: No Alcohol use: Reports: none Drug use: Reports: none Physical Exam - General Limitations: no limitations General appearance: alert Course Vital Signs Temperature 97.8 F 04/16/18 13:20 Pulse Rate 93 04/16/18 13:20 Respiratory Rate 18 04/16/18 13:20 Blood Pressure 145/88 04/16/18 13:20 O2 Sat by Pulse Oximetry 98 04/16/18 13:20 Temperature 97.8 F 04/16/18 13:20 Pulse Rate 93 04/16/18 13:20 Respiratory Rate 18 04/16/18 13:20 Blood Pressure 145/88 04/16/18 13:20 O2 Sat by Pulse Oximetry 98 04/16/18 13:45 Oxygen Delivery Oxygen Delivery Nasal Cannula Medical Decision Making - Lab Data Result diagrams: 04/16/18 13:29 04/16/18 13:31 Lab Results 04/16/18 04/16/18 04/16/18 Range/Units 13:29 13:29 13:31 WBC 10.2 (4.3-11.1) K/mcL RBC 3.26 L (4.19-5.50) M/mcL Hgb 8.7 L (12.9-16.9) g/dL Hct 28.7 L (37.5-50.1) % MCV 88.0 (83.0-100.0) fL MCH 26.7 L (28.0-33.3) pg MCHC 30.3 L (31.6-35.5) g/dL RDW 16.2 H (11.5-14.5) % Plt Count 290 (140-400) K/mcL MPV 10.3 (9.4-12.4) fL Immature Gran % 0.5 (0-4) % Seg Neutrophils % 69.7 % Lymphocytes % 20.3 % Monocytes % 6.7 % Eosinophils % 2.4 % Basophils % 0.4 % Neutrophils # 7.1 (1.6-8.9) K/mcL Lymphocytes # 2.1 (0.6-4.6) K/mcL Monocytes # 0.7 (0.0-1.3) K/mcL Eosinophils # 0.2 (0.0-0.6) K/mcL Basophils # 0.0 (0.0-0.2) K/mcL Sodium 137 (136-145) mEq/L Potassium 4.4 (3.5-5.1) mEq/L Chloride 100 (98-107) mEq/L Carbon Dioxide 27 (23-29) mEq/L BUN 13 (8-23) mg/dL Creatinine 0.88 (0.70-1.30) mg/dL Est GFR ( Amer) > 60 (> 60) Est GFR (Non-Af Amer) > 60 (> 60) BUN/Creatinine Ratio 15 (6-26) Glucose 216 H (70-105) mg/dL Calculated Osmolality 291 (280-300) Lactic Acid (0.5-2.2) mmol/L Calcium 9.7 (8.6-10.3) mg/dL Troponin I < 0.03 (< 0.04) ng/mL B-Natriuretic Peptide 137 H (Less than 100) pg/mL Urine Color (Yellow) Urine Clarity (Clear) Urine pH (5.0-8.0) pH Units Ur Specific [place] (1.010-1.025) Urine Protein (Neg-Trace) mg/dL Urine Glucose (UA) (Normal) mg/dL Urine Ketones (Negative) mg/dL Urine Blood (Negative) Urine Nitrite (Negative) Urine Bilirubin (Negative) Urine Urobilinogen (Normal) mg/dL Ur Leukocyte Esterase (Negative) Urine Microscopic RBC (0-3) per hpf Urine Microscopic WBC (0-3) per hpf Ur Squamous Epith Cells (None-Few) per lpf Urine Bacteria (None-Few) per hpf Hyaline Casts (None-Few) per lpf Ur Culture Indicated? (NO) 04/16/18 04/16/18 04/16/18 Range/Units 13:50 14:04 17:12 WBC (4.3-11.1) K/mcL RBC (4.19-5.50) M/mcL Hgb (12.9-16.9) g/dL Hct (37.5-50.1) % MCV (83.0-100.0) fL MCH (28.0-33.3) pg MCHC (31.6-35.5) g/dL RDW (11.5-14.5) % Plt Count (140-400) K/mcL MPV (9.4-12.4) fL Immature Gran % (0-4) % Seg Neutrophils % % Lymphocytes % % Monocytes % % Eosinophils % % Basophils % % Neutrophils # (1.6-8.9) K/mcL Lymphocytes # (0.6-4.6) K/mcL Monocytes # (0.0-1.3) K/mcL Eosinophils # (0.0-0.6) K/mcL Basophils # (0.0-0.2) K/mcL Sodium (136-145) mEq/L Potassium (3.5-5.1) mEq/L Chloride (98-107) mEq/L Carbon Dioxide (23-29) mEq/L BUN (8-23) mg/dL Creatinine (0.70-1.30) mg/dL Est GFR ( Amer) (> 60) Est GFR (Non-Af Amer) (> 60) BUN/Creatinine Ratio (6-26) Glucose (70-105) mg/dL Calculated Osmolality (280-300) Lactic Acid 3.0 H 3.4 H (0.5-2.2) mmol/L Calcium (8.6-10.3) mg/dL Troponin I (< 0.04) ng/mL B-Natriuretic Peptide (Less than 100) pg/mL Urine Color Red A (Yellow) Urine Clarity Cloudy A (Clear) Urine pH 6.5 (5.0-8.0) pH Units Ur Specific [place] < 1.005 L (1.010-1.025) Urine Protein 100 H (Neg-Trace) mg/dL Urine Glucose (UA) Normal (Normal) mg/dL Urine Ketones Trace H (Negative) mg/dL Urine Blood Large H (Negative) Urine Nitrite Negative (Negative) Urine Bilirubin Negative (Negative) Urine Urobilinogen Normal (Normal) mg/dL Ur Leukocyte Esterase Moderate H (Negative) Urine Microscopic RBC TNTC H (0-3) per hpf Urine Microscopic WBC 5-15 H (0-3) per hpf Ur Squamous Epith Cells Moderate H (None-Few) per lpf Urine Bacteria None Seen (None-Few) per hpf Hyaline Casts None Seen (None-Few) per lpf Ur Culture Indicated? YES A (NO) Attestation Statement - Attestation Attestation: I examined this patient and my medical decision-making was reviewed with the Resident Physician. I agree with the documented findings, disposition and treatment plan as described except to the extent set forth below. Patient presents to the ED with 2 chief complaints. The first one is blood in his urine. This has been going on for weeks. [facility] has [facility] He has been seen here. He was treated for an infection with Cipro. He states the difference today is there is no longer clots. He states he still urinating fine and does not feel blocked. He is scheduled to see urology later this week for a scope. Other complaint is shortness of breath. No cough. No fever. Swelling in his legs. He denies orthopnea, but he states he sleeps propped up on pillows. On exam he is in no acute distress with decreased air exchange. 1-2+ pitting edema bilaterally. Plan. Cardiac workup. Urinalysis was CT abdomen pelvis. Chest shows no infiltrate. He has questionable bronchitis, however he is not coughing. Patient is in no respiratory distress. He does have hemorrhage in his bladder. He has follow-up arranged this week with urology. He does have an elevated lactic acid. We will hydrate and recheck. Repeat lactate after IV fluids is more elevated. Unclear source. He does not meet sepsis criteria. Anion gap is normal. We will admit. Chest X-Ray 04/16/18 13:29 IMPRESSION: Mild perihilar peribronchial wall thickening bilaterally-raising the possibility of bronchitis. No evident acute lobar pneumonia. Questionable 12 mm nodule lateral to the left hilum. Recommend repeat PA chest with 5 degree obliques off the PA projection to confirm or exclude. D/ / Cam Hough MD / Cam Hough MD Interpreting Provider: Cam Hough MD Abdomen/Pelvis CT 04/16/18 13:35 IMPRESSION: 1. Layering high density compatible with hemorrhage in the dependent urinary bladder. An underlying bladder neoplasm needs to be excluded. Nonemergent urology consultation recommended. 2. No renal or urinary tract calculus. No hydronephrosis. D/ : / 04/16/2018 14:57:53 Jasper Morales MD / maury Interpreting Provider: Jasper Morales MD
--- NOTE | 2018-04-16 13:39 | Emergency Department Note ---
Disposition Clinical Impression: Elevated lactic acid level Hematuria Qualifiers: Hematuria type: unspecified type Qualified Code(s): R31.9 - Hematuria, unspecified UTI (urinary tract infection) Qualifiers: Urinary tract infection type: site unspecified Hematuria presence: with hematuria Qualified Code(s): N39.0 - Urinary tract infection, site not specified Disposition: Admitted As Inpatient Condition: Good Referrals: NONE,PCP [Primary Care Provider] - Forms: ED Satisfaction Letter Time of Disposition: 17:48 General Adult HPI - General Chief complaint: ED Shortness of Breath/Dyspnea Stated complaint: KSENIA, hematuria Time Seen by Provider: 04/16/18 13:17 Source: patient Mode of arrival: wheelchair Limitations: no limitations Nursing Notes Reviewed: Yes Vital Signs Reviewed: Yes - History of Present Illness HPI Narrative: Patient is a 77-year-old male that presents emergency department due to hematuria shortness of breath. Patient states he is been seen on multiple occasions for his hematuria. Patient states that he was admitted to the [facility] for his hematuria and underwent a CT scan and ultrasound. Patient was informed that he did have a urinary infection. Patient states that he was instructed to follow-up with urology. Patient has a follow-up appointment scheduled for April 19. Patient states that yesterday he noticed that he was having increased shortness of breath. Patient does state that he has some baseline shortness of breath and requires 3 L of oxygen at home. Patient states that he has not had increased oxygen requirement and was told not to adjust his oxygen at home. Due to this the patient felt that he should come in to be evaluated. Patient does state that he feels like his legs are at his baseline for swelling however his granddaughter that this in the room states that she feels that his legs are more swollen than normal. Pain Scale: 0 - Related Data Home Medications Medication Instructions Recorded Confirmed Albuterol Sulfate [Ventolin Hfa] 2 puff IH Q4H PRN 12/26/17 01/19/18 Aspirin [Adult Aspirin] 81 mg PO DAILY 12/26/17 01/19/18 Atorvastatin [Lipitor] 40 mg PO HS 12/26/17 01/19/18 Budesonide/Formoterol 160/4.5 2 puff IH BIDR 12/26/17 01/19/18 [Symbicort 160/4.5] Cholecalciferol (D-3) [Vitamin D] 1,000 unit PO DAILY 12/26/17 01/19/18 Insulin Glargine [Lantus] 48 unit SQ HS 12/26/17 01/19/18 Magnesium Oxide [Magnesium] 200 mg PO DAILY 12/26/17 01/19/18 Meloxicam [Mobic] 7.5 mg PO DAILY 12/26/17 01/19/18 Vit C/E/Zn/Coppr/Lutein/Zeaxan 1 cap PO DAILY 12/26/17 01/19/18 [Preservision Areds 2 Softgel] Metoprolol Succinate [Toprol Xl] 75 mg PO BID 01/19/18 01/19/18 Tiotropium [place] [Spiriva 2 puff IH QAM 01/19/18 01/19/18 Respimat] Previous Rx's Medication Instructions Recorded Rivaroxaban [Xarelto] 20 mg PO DAILY #30 tablet 12/28/17 Aspirin 325 mg PO DAILY 30 Days #30 tablet 01/22/18 Lisinopril [Zestril] 20 mg PO DAILY 30 Days #30 tablet 01/22/18 Allergies Allergy/AdvReac Type Severity Reaction Status Date / Time acetaminophen [From Vicodin] Allergy Headache Verified 04/09/18 19:01 hydrocodone [From Vicodin] Allergy Headache Verified 04/09/18 19:01 simvastatin Allergy Nausea Verified 04/09/18 19:01 All systems ED: reviewed and negative except as stated. Constitutional: Denies: fever Cardiovascular: Denies: chest pain Respiratory: Reports: dyspnea Gastrointestinal: Denies: nausea, vomiting Genitourinary: Reports: hematuria. Denies: urgency, dysuria, frequency Past Medical History - Past Medical History Attestation: Yes The following information was validated with the patient. Source: patient Medical history: Reports: arthritis, atrial fibrillation, COPD, diabetes, hyperlipidemia, hypertension, myocardial infarction, TIA Surgical history: Reports: angioplasty/stent, orthopedic, other Psychiatric history: Reports: no psych history - Social History Smoking Status: Former smoker Smokeless Tobacco Status: No Alcohol use: Reports: none Drug use: Reports: none Physical Exam - General Limitations: no limitations General appearance: alert, in no apparent distress - Head Head exam: atraumatic, normocephalic - Eye Eye exam: Present: normal appearance, EOMI - Neck Neck exam: Present: normal inspection, full ROM, trachea midline - Respiratory Respiratory exam: Present: normal lung sounds bilaterally. Absent: respiratory distress, wheezes - Cardiovascular Cardiovascular exam: Present: regular rate, normal rhythm, normal heart sounds, +S1, +S2 - Abdominal Exam Abdominal exam: Present: soft, Non-Tender, normal bowel sounds - Neurological Exam Neurological exam: Present: alert, oriented X3 - Psychiatric Psychiatric exam: Present: normal affect, normal mood - Skin Skin exam: Present: warm, dry, intact Course Vital Signs Temperature 97.8 F 04/16/18 13:20 Pulse Rate 93 04/16/18 13:20 Respiratory Rate 18 04/16/18 13:20 Blood Pressure 145/88 04/16/18 13:20 O2 Sat by Pulse Oximetry 98 04/16/18 13:20 Temperature 97.8 F 04/16/18 13:20 Pulse Rate 93 04/16/18 13:20 Respiratory Rate 18 04/16/18 13:20 Blood Pressure 145/88 04/16/18 13:20 O2 Sat by Pulse Oximetry 98 04/16/18 13:20 Oxygen Delivery Oxygen Delivery Nasal Cannula Medical Decision Making - [facility] Narrative Medical decision making narrative: Due the patient presented to the emergency department with reports of significant hematuria and shortness of breath we will obtain basic laboratory: Chest x-ray EKG and a urinalysis. Patient's laboratory testing showed a elevated lactic acid of 3.0. Patient was given 1 L of IV fluids and his lactic acid was rechecked and was 3.4. CT scan of the abdomen and pelvis shows possible blood within the bladder and a neoplasm cannot be definitively ruled out and is recommended that he have a urology follow-up. Based on the patient having continued elevation of his lactic acid feel that he be best served being admitted to the hospital for further evaluation and management. Patient did have possible evidence of a urinary tract infection with elevated leukocyte esterase and white blood cells in his urine. Patient will be given a dose of Rocephin here in the emergency department. Patient is in agreement with this plan. Called and spoke with the admitting hospitalist Dr Yang and he has accepted the patient to their service to patient be admitted to the hospital this time for further evaluation and management. - Medical Records Medical records reviewed: Yes I reviewed the patient's medical records. - Lab Data Lab results reviewed: Yes I reviewed the patient's lab results. Result diagrams: 12/30/18 13:29 04/16/18 13:31 - Radiology Data Radiology results reviewed: Yes I reviewed the patient's radiology results. Chest X-Ray 04/16/18 13:29 IMPRESSION: Mild perihilar peribronchial wall thickening bilaterally-raising the possibility of bronchitis. No evident acute lobar pneumonia. Questionable 12 mm nodule lateral to the left hilum. Recommend repeat PA chest with 5 degree obliques off the PA projection to confirm or exclude. D/ / Cam Hough MD / Cam Hough MD Interpreting Provider: Cam Hough MD Abdomen/Pelvis CT 04/16/18 13:35 IMPRESSION: 1. Layering high density compatible with hemorrhage in the dependent urinary bladder. An underlying bladder neoplasm needs to be excluded. Nonemergent urology consultation recommended. 2. No renal or urinary tract calculus. No hydronephrosis. D/ : / 04/16/2018 14:57:53 Jasper Morales MD / maury Interpreting Provider: Jasper Morales MD - EKG Data EKG #1 EKG attestation: Yes I reviewed and interpreted this EKG. EKG results narrative: EKG shows a sinus rhythm with a right bundle branch block. Heart rate of 89 b eats from it, ID interval of 161, QRS duration 156, QTc of 457. This was compared to previous EKG on 01/19/18. There are no new acute ischemic changes noted on EKG.
[2018-04-16 14:06] LABS: Bilirubin,Urine Negative (Negative); Blood,Urine Large (Negative); Clarity,Urine Cloudy (Clear); Color,Urine Red (Yellow); Glucose,Urine (UA) Normal (Normal); Ketones,Urine Trace mg/dL (Negative); Leukocyte Esterase,Urine Moderate (Negative); Nitrite,Urine Negative (Negative); PH,Urine 6.5 pH Units (5.0-8.0); Protein,Urine 100 mg/dL (Neg-Trace); Specific Gravity,Urine < 1.005 (1.010-1.025); Urobilinogen,Urine Normal (Normal)
[2018-04-16 14:06] LABS: BUN/Creatinine Ratio 15 (6-26); Blood Urea Nitrogen 13 mg/dL (8-23); Calcium 9.7 mg/dL (8.6-10.3); Carbon Dioxide 27 mEq/L (23-29); Chloride 100 mEq/L (98-107); Glucose 216 mg/dL (70-105); Osmolality,Calculated 291 (280-300); Potassium 4.4 mEq/L (3.5-5.1); Sodium 137 mEq/L (136-145); eGFR For Non-African Americans > 60 (> 60)
[2018-04-16 14:07] LABS: Troponin I < 0.03 ng/mL (< 0.04)
[2018-04-16 14:09] LABS: Bacteria,Urine None Seen per hpf (None-Few); Hyaline Casts,Urine None Seen per lpf (None-Few); RBC,Urine TNTC per hpf (0-3); Squamous Epithelial Cell,Urine Moderate per lpf (None-Few)
[2018-04-16 14:13] LABS: Basophils % 0.4 %; Eosinophils # 0.2 K/mcL (0.0-0.6); Eosinophils % 2.4 %; Hematocrit 28.7 % (37.5-50.1); Hemoglobin 8.7 g/dL (12.9-16.9); Immature Granulocytes % 0.5 % (0-4); Lymphocytes # 2.1 K/mcL (0.6-4.6); Lymphocytes % 20.3 %; Mean Corpuscular HGB Conc 30.3 g/dL (31.6-35.5); Mean Corpuscular Hemoglobin 26.7 pg (28.0-33.3); Mean Platelet Volume 10.3 fL (9.4-12.4); Monocytes # 0.7 K/mcL (0.0-1.3); Monocytes % 6.7 %; Neutrophils # 7.1 K/mcL (1.6-8.9); Platelet Count 290 K/mcL (140-400); Red Blood Count 3.26 M/mcL (4.19-5.50); Red Cell Distribution Width 16.2 % (11.5-14.5); Segmented Neutrophils % 69.7 %
[2018-04-16] MEDS ORDERED: 0.9 % Sodium Chloride 1,000 ML IVC ONE (15:37)
[2018-04-16] MEDS ORDERED: cefTRIAXone 1,000 MG in Water for inj. (sterile) 20 ML 10 ML IVP ONE (17:42)
--- NOTE | 2018-04-16 19:45 | Internal Med History&Physical ---
<Amari Moraes - Last Filed: 04/16/18 21:42> Date of Encounter: 04/16/18 Time of Encounter: 08:05 Internal Medicine - H&P: HPI Chief complaint: Hematuria Admitted From: Emergency Dept Plans for Post Hospital Care: Home History of present illness: Mr. Gayle is a 77 year old male with past medical history of atrial fibrillation, COPD, hyperlipidemia, hypertension, TIA presumed the emergency department with complaint of hematuria 2 days. He states he has experienced this multiple times in the past, notably in 2010. He does follow with urology at the [place]. He states at that time he was admitted to the [facility] and multiple blood clots were found in the bladder but is never undergone a cystos copy. He did talk to his urologist most recently on 04/02/2018 and at that time, they did discontinue his home xarelto. He is also on home aspirin and Mobic. Patient states that he has noticed "cranberry colored urine " but denies any symptoms of dysuria, frequency, urgency, hesitancy, weak streams. He did state he had a brief episode of left-sided flank pain which has since resolved. He stated that he was scheduled to follow-up with his urologist on 04/19/18 for a possible cystoscopy. His urologist is told him that his symptoms may be related to BPH. Also admits to some increase of shortness of breath for the last 2 weeks. Denies any symptoms of cough, fevers, chills, chest pains. States symptoms are exacerbated with exertion. He is home option dependent intermittently on 3 L mainly only when he exerts himself. On presentation to the emergency room, vital signs significant for heart rate of 93, otherwise within normal limits. Laboratory results were significant for hemoglobin of 8.7, glucose 216, lactic acid of 3.0 which is trending to 3.4, BNP 137. Urinalysis was obtained and showed evidence of blood, moderate leukocyte esterase, moderate epithelial cells and negative nitrates. Chest x-ray showed mild peribronchial wall thickening evidence of possible bronchitis. Abdominal CT was also obtained which showed heterogeneous material in the bladder suggestive of hemorrhage. Urology was consulted in the emergency room. Past medical history as above Past surgical history includes orthopedic Social history: Former smoker, denies alcohol or drug use Past Med Surg Social Fam HX - Past Medical History Medical history: arthritis, atrial fibrillation, COPD, diabetes, hyperlipidemia, hypertension, myocardial infarction, TIA Psychiatric history: no psych history - Past Surgical History Surgical History: angioplasty/stent, orthopedic, other Additional surgical history: right rotator cuff repair - Social History Smoking Status: Former smoker Smokeless Tobacco Status: No Alcohol use: none Drug use: none - Family History Mother Living Status: Hx Family Cardiac Disorders: Yes ([place]) Hx Family Respiratory Disorders: Yes (emphysema) Hx Family Cancer: No Father Living Status: Hx Family Cardiac Disorders: No Hx Family Respiratory Disorders: No Hx Family Cancer: No Hx Family GI Disorders: No Hx Family Endocrine Disorder: No Hx Family Neuromuscular Disorders: No Hx Family Neurologic Disorders: No Hx Family HEENT Disorders: No Hx Family Autoimmune Disorders: No Internal Medicine - H&P: Meds Albuterol Sulfate [Ventolin Hfa] 2 puff IH Q4H PRN 12/26/17 [History] Aspirin [Adult Aspirin] 81 mg PO DAILY 12/26/17 [History] Atorvastatin [Lipitor] 40 mg PO HS 12/26/17 [History] Budesonide/Formoterol 160/4.5 [Symbicort 160/4.5] 2 puff IH BIDR 12/26/17 [Hi story] Cholecalciferol (D-3) [Vitamin D] 1,000 unit PO DAILY 12/26/17 [History] Insulin Glargine [Lantus] 48 unit SQ HS 12/26/17 [History] Magnesium Oxide [Magnesium] 200 mg PO DAILY 12/26/17 [History] Meloxicam [Mobic] 7.5 mg PO DAILY 12/26/17 [History] Vit C/E/Zn/Coppr/Lutein/Zeaxan [Preservision Areds 2 Softgel] 1 cap PO DAILY 12/26/17 [History] Rivaroxaban [Xarelto] 20 mg PO DAILY #30 tablet 12/28/17 [Rx] Metoprolol Succinate [Toprol Xl] 75 mg PO BID 01/19/18 [History] Tiotropium [place] [Spiriva Respimat] 2 puff IH QAM 01/19/18 [History] Aspirin 325 mg PO DAILY 30 Days #30 tablet 01/22/18 [Rx] Lisinopril [Zestril] 20 mg PO DAILY 30 Days #30 tablet 01/22/18 [Rx] Allergy/AdvReac Type Severity Reaction Status Date / Time acetaminophen [From Vicodin] Allergy Headache Verified 04/09/18 19:01 hydrocodone [From Vicodin] Allergy Headache Verified 04/09/18 19:01 simvastatin Allergy Nausea Verified 04/09/18 19:01 All Systems PM: A 10-system review of systems was performed and is negative for pertinent findings except as documented above in the HPI. Review of systems: - Constitutional: Denies fevers, chills, weight loss, generalized fatigue - EENT: Denies vision changes/blurriness - CVS: Denies chest pain, palpitations, orthopnea, edema, PND, - Pulm: Admits to shortness of breath on exertion. Denies cough, sputum, hematemesis, wheezing - GI: Denies abdominal pain, anorexia, nausea, vomiting, diarrhea, constipation, melena - : Admits to hematuria. Denies dysuria, increased frequency, urgency - Heme: Denies ease of bleeding or bruising - MSK: Denies joint pain, limited ROM - Skin: Denies rashes, ulcers, color changes, - Neuro: Denies MATHEWS, paresthesias, focal deficits, ataxia, - Constitutional Vitals: Temp Pulse Resp BP Pulse Ox 97.8 F 80 18 157/97 100 04/16/18 13:20 04/16/18 19:39 04/16/18 19:39 04/16/18 19:39 04/16/18 19:39 Exam: Gen.: Vitals noted. No acute distress. AAOx3, resting comfortably in bed. HEENT: PERRL/EOMI, oropharynx clear, Normocephalic, atraumatic, MMM Cardiac: Irregularly irregular rhythm, no murmur, +S1/S2, No BLE edema Pulmonary: CTA bilaterally, no wheezes, rales or rhonchi, equal chest expansion, unlabored breathing Abdomen: soft, nontender, BS noted, no guarding, no palpable HSM Back: Nontender throughout. Skin: warm and dry, no visible lesions. MSK: ROM intact, no joint swelling noted, gait no assessed while in bed. Non tender calf or clubbing Neuro: A&Ox3, moves all extremities, no focal deficits, sensation intact Psych: Appropriate mood and behavior, AOx3 Internal Med - H&P Results - Labs CBC & Chem 7: 04/16/18 13:29 04/16/18 13:31 Labs: Short CBC 04/16/18 Range/Units 13:29 WBC 10.2 (4.3-11.1) K/mcL Hgb 8.7 L (12.9-16.9) g/dL Hct 28.7 L (37.5-50.1) % Plt Count 290 (140-400) K/mcL Neutrophils # 7.1 (1.6-8.9) K/mcL BMP 04/16/18 13:31 Sodium 137 Potassium 4.4 Chloride 100 Carbon Dioxide 27 BUN 13 Creatinine 0.88 Glucose 216 H Calcium 9.7 Cardiac Enzymes 04/16/18 Range/Units 13:31 Troponin I < 0.03 (< 0.04) ng/mL Urine 04/16/18 Range/Units 13:50 Urine Color Red A (Yellow) Urine Clarity Cloudy A (Clear) Urine pH 6.5 (5.0-8.0) pH Units Ur Specific [place] < 1.005 L (1.010-1.025) Urine Protein 100 H (Neg-Trace) mg/dL Urine Glucose (UA) Normal (Normal) mg/dL - Impressions ITS Impressions Chest X-Ray 04/16/18 13:29 IMPRESSION: Mild perihilar peribronchial wall thickening bilaterally-raising the possibility of bronchitis. No evident acute lobar pneumonia. Questionable 12 mm nodule lateral to the left hilum. Recommend repeat PA chest with 5 degree obliques off the PA projection to confirm or exclude. D/ / Cam Hough MD / Cam Hough MD Interpreting Provider: Cam Hough MD Abdomen/Pelvis CT 04/16/18 13:35 IMPRESSION: 1. Layering high density compatible with hemorrhage in the dependent urinary bladder. An underlying bladder neoplasm needs to be excluded. Nonemergent urology consultation recommended. 2. No renal or urinary tract calculus. No hydronephrosis. D/ / 04/16/2018 14:57:53 Jasper Morales MD / maury Interpreting Provider: Jasper Morales MD - Assessment and plan (1) Hematuria Current Visit: Yes Status: Acute Assessment and plan: - Acute on chronic in nature - Etiology unclear, may be related to BPH versus malignancy versus less likely infectious - Patient does follow with urology at [place] - H/H is diminished with a hemoglobin of 8.7. Baseline appears to be 11-14 based on labs obtained this year - Patient states he has been off his anticoagulation for approximately 2 weeks. Still takes aspirin, Mobic - Was scheduled as outpatient to receive cystoscopy Plan - We will type and screen for possible need for transfusion - Obtain coagulation studies - Urology consulted in emergency department - Am labs Qualifiers: Hematuria type: gross Qualified Code(s): R31.0 - Gross hematuria (2) IDDM (insulin dependent diabetes mellitus) Current Visit: Yes Status: Chronic Assessment and plan: - Blood sugar 216 on presentation - We will give slight a scale insulin, ADA diet (3) HTN (hypertension) Current Visit: Yes Status: Chronic Assessment and plan: - BP of 145/88 - Continue home antihypertensives Qualifiers: Hypertension type: essential hypertension Qualified Code(s): I10 - Essential (primary) hypertension (4) CAD (coronary artery disease) Current Visit: No Status: Chronic Assessment and plan: No complaints of chest pain Continue home medications Qualifiers: Coronary Disease-Associated Artery/Lesion type: [place] artery [place] vs. transplanted heart: [place] heart Associated angina: with unstable angina Qualified Code(s): I25.110 - Atherosclerotic heart disease of [place] coronary artery with unstable angina pectoris (5) Atrial fibrillation Current Visit: Yes Status: Chronic Assessment and plan: - Known history of atrial fibrillation - Rate is reasonably well controlled in the 90s - Formerly on anticoagulation of xarelto, however this was stopped by PCP on 04/02/18 due to hematuria Plan - Continue home rate control - Continue to hold anticoagulation in the setting of hematuria Qualifiers: Atrial fibrillation type: chronic Qualified Code(s): I48.2 - Chronic atrial fibrillation (6) TIA (transient ischemic attack) Current Visit: Yes Status: Chronic Assessment and plan: Continue home medications No residual deficits (7) UTI (urinary tract infection) Current Visit: Yes Status: Suspected Assessment and plan: - Possible urinary tract infection with leukocyte esterase and urinalysis - Suspect this is more likely related to BPH, possible malignancy and less likely related to infection - Patient is asymptomatic, epithelial cells in urine - We will continue Rocephin started in the emergency department to cover for both possible UTI as well as bronchitis seen on chest x-ray - Urology consulted Qualifiers: Urinary tract infection type: acute cystitis Hematuria presence: with hematuria Qualified Code(s): N30.01 - Acute cystitis with hematuria (8) Elevated lactic acid level Current Visit: Yes Status: Acute Assessment and plan: - Lactic Acid of 3.0 on presentation was trended to 3.4 - Of note, patient meets 1/4 sirs criteria and is no evidence of infection - We will give gentle fluid hydration (9) DVT prophylaxis Current Visit: Yes Status: Acute Assessment and plan: SCDs in the setting of hematuria - Time Spent With Patient Total time spent is greater than 50% in coordination of care (as documented) at patient's floor/unit and/or counseling patient: <YasmeenEfe Pietro - Last Filed: 04/16/18 22:40> Date of Encounter: 04/16/18 Internal Medicine - H&P: HPI History of present illness: Mr. Gayle is a 77 year old male All Systems PM: A 10-system review of systems was performed and is negative for pertinent findings except as documented above in the HPI. - Constitutional Vitals: Temp Pulse Resp BP Pulse Ox 98.2 F 76 15 165/69 96 04/16/18 20:44 04/16/18 20:44 04/16/18 20:44 04/16/18 20:44 04/16/18 20:44 Internal Med - H&P Results - Labs CBC & Chem 7: 04/16/18 13:29 04/16/18 13:31 Labs: Short CBC 04/16/18 Range/Units 13:29 WBC 10.2 (4.3-11.1) K/mcL Hgb 8.7 L (12.9-16.9) g/dL Hct 28.7 L (37.5-50.1) % Plt Count 290 (140-400) K/mcL Neutrophils # 7.1 (1.6-8.9) K/mcL BMP 04/16/18 13:31 Sodium 137 Potassium 4.4 Chloride 100 Carbon Dioxide 27 BUN 13 Creatinine 0.88 Glucose 216 H Calcium 9.7 Cardiac Enzymes 04/16/18 Range/Units 13:31 Troponin I < 0.03 (< 0.04) ng/mL Urine 04/16/18 Range/Units 13:50 Urine Color Red A (Yellow) Urine Clarity Cloudy A (Clear) Urine pH 6.5 (5.0-8.0) pH Units Ur Specific [place] < 1.005 L (1.010-1.025) Urine Protein 100 H (Neg-Trace) mg/dL Urine Glucose (UA) Normal (Normal) mg/dL - Impressions ITS Impressions Chest X-Ray 04/16/18 13:29 IMPRESSION: Mild perihilar peribronchial wall thickening bilaterally-raising the possibility of bronchitis. No evident acute lobar pneumonia. Questionable 12 mm nodule lateral to the left hilum. Recommend repeat PA chest with 5 degree obliques off the PA projection to confirm or exclude. D/ / Cam Hough MD / Cam Hough MD Interpreting Provider: Cam Hough MD Abdomen/Pelvis CT 04/16/18 13:35 IMPRESSION: 1. Layering high density compatible with hemorrhage in the dependent urinary bladder. An underlying bladder neoplasm needs to be excluded. Nonemergent urology consultation recommended. 2. No renal or urinary tract calculus. No hydronephrosis. D/ : / 04/16/2018 14:57:53 Jasper Morales MD / maury Interpreting Provider: Jasper Morales MD - Time Spent With Patient Total time spent is greater than 50% in coordination of care (as documented) at patient's floor/unit and/or counseling patient: - Attending Attestation I saw and evaluated the patient. I reviewed the residents note, performed my own physical examination and agree with findings and plan as documented in the residents note. Patient seen and examined on 04/16/18. Patient denies complaints. Has been dealing with hematuria off and on since 2010, and has been undergoing recent work up out patient. Will monitor hemoglobins closely, and transfuse if indicated. He has required this in the past. Urology consult in the morning.
[2018-04-16] MEDS ORDERED: Naloxone 0.4 MG/ML INJ IVP PRN (20:19)
[2018-04-16] MEDS: 0.9 % Sodium Chloride 1,000 ML IVC SCH (22:21)
--- NOTE | 2018-04-17 07:14 | Urology - Consult Note ---
Date of Encounter: 04/17/18 Time of Encounter: 07:11 - Assessment and Plan (1) Gross hematuria Current Visit: Yes Status: Resolved Assessment and plan: I personally reviewed the CT scan and agree that there were a mild to moderate amount of clot material. Based on his history I suspect that he urinated all of the clot out which has now resulted in clear urine. No need to place Louie catheter or start CBI this morning. Will start finasteride 5 mg daily to help reduce recurrence of hematuria. I strongly suspect that the hematuria is from BPH. There are other possible sources in the differential such as urothelial malignancy. Patient does require a cystoscopy at some point. No need for urgent scope at this time. If he is discharged from the hospital he can proceed with the outpatient cystoscopy at the [facility] on Tuesday. I offered the patient follow up with [facility] if he desired. Need to minimize his anticoagulation as much as possible because of his significant risk for recurrent gross hematuria. Unsure how possible this will be with his history of cardiovascular disease and stroke. use stool softeners to prevent constipation. straining will increase risk for recurrent hematuria. Hemoglobin yesterday 8.7. Level pending today. Unknown previous hemoglobin levels to establish if his anemia is acute or chronic. Lactic acid level elevated. Unknown etiology. May not be from urinary issues. . Urology CN:HPI Consult date: 04/17/18 Reason for consult Urology: Gross Hematuria History of present illness: 77-year-old male new to [facility] u[facility], admitted for gross hematuria and anemia. Patient states that 3-4 weeks ago he was straining to have a bowel movement and developed gross hematuria. He is on anticoagulation. He was eventually admitted to the [facility] approximately 2 weeks ago because of continued hematuria. A 3-way hematuria catheter was placed and he was started on CBI. He was eventually discharged with what he describes as clear urine that only lasted less than 24 hours. He said continued hematuria since last Tuesday which culminated in a second emergency room visit and eventual admission to [facility]. CT scan on the demonstrated clots layered within the bladder. His urine was quite dark red yesterday per the nursing staff. Overnight the patient urinated what he describes as 5 or 6 large clots and the urine has been clear since. He feels fine this morning with no pain. He was scheduled for a outpatient cystoscopy at the [facility] on Tuesday. Past Med Surg Social Fam HX - Past Medical History Medical history: arthritis, atrial fibrillation, COPD, diabetes, hyperlipidemia, hypertension, myocardial infarction, TIA Psychiatric history: no psych history - Past Surgical History Surgical History: angioplasty/stent, orthopedic, other Additional surgical history: right rotator cuff repair - Social History Smoking Status: Former smoker Smokeless Tobacco Status: No Alcohol use: none Drug use: none - Family History Mother Living Status: Hx Family Cardiac Disorders: Yes ([place]) Hx Family Respiratory Disorders: Yes (emphysema) Hx Family Cancer: No Father Living Status: Hx Family Cardiac Disorders: No Hx Family Respiratory Disorders: No Hx Family Cancer: No Hx Family GI Disorders: No Hx Family Endocrine Disorder: No Hx Family Neuromuscular Disorders: No Hx Family Neurologic Disorders: No Hx Family HEENT Disorders: No Hx Family Autoimmune Disorders: No Medications and Allergies Albuterol Sulfate [Ventolin Hfa] 2 puff IH Q4H PRN 12/26/17 [History] Aspirin [Adult Aspirin] 81 mg PO DAILY 12/26/17 [History] Atorvastatin [Lipitor] 40 mg PO HS 12/26/17 [History] Budesonide/Formoterol 160/4.5 [Symbicort 160/4.5] 2 puff IH BIDR 12/26/17 [History] Cholecalciferol (D-3) [Vitamin D] 1,000 unit PO DAILY 12/26/17 [History] Insulin Glargine [Lantus] 48 unit SQ HS 12/26/17 [History] Magnesium Oxide [Magnesium] 200 mg PO DAILY 12/26/17 [History] Meloxicam [Mobic] 7.5 mg PO DAILY 12/26/17 [History] Vit C/E/Zn/Coppr/Lutein/Zeaxan [Preservision Areds 2 Softgel] 1 cap PO DAILY 12/26/17 [History] Rivaroxaban [Xarelto] 20 mg PO DAILY #30 tablet 12/28/17 [Rx] Metoprolol Succinate [Toprol Xl] 75 mg PO BID 01/19/18 [History] Tiotropium [place] [Spiriva Respimat] 2 puff IH QAM 01/19/18 [History] Aspirin 325 mg PO DAILY 30 Days #30 tablet 01/22/18 [Rx] Lisinopril [Zestril] 20 mg PO DAILY 30 Days #30 tablet 01/22/18 [Rx] Allergy/AdvReac Type Severity Reaction Status Date / Time acetaminophen [From Vicodin] Allergy Headache Verified 04/09/18 19:01 hydrocodone [From Vicodin] Allergy Headache Verified 04/09/18 19:01 simvastatin Allergy Nausea Verified 04/09/18 19:01 Review of Systems - Constitutional fatigue, no fever(s), no malaise - EENT Nose, mouth and throat: no dizziness - Cardiovascular no chest pain - Respiratory no cough - Gastrointestinal no abdominal pain, no nausea - Genitourinary difficulty urinating, hematuria - Musculoskeletal back pain - Integumentary no erythema - Neurological no confusion - Psychiatric no anxiety - Hematologic/Lymphatic easy bleeding - Allergic/Immunologic no throat swelling Exam Initial Vital Signs Temp Pulse Resp BP Pulse Ox 97.8 F 93 18 145/88 98 04/16/18 13:20 04/16/18 13:20 04/16/18 13:20 04/16/18 13:20 04/16/18 13:20 - General physical appearance Present: well developed, no distress - Eyes Present: PERRL - ENT Present: normal nares - Neck Present: no masses, no lymphadenopathy - Respiratory Present: normal respiratory effort - Cardiovascular Cardiovascular exam IM: RRR - Abdomen Abdomen: Present: soft. Absent: suprapubic tenderness - Integumentary Absent: no rash, no growths, no abnormal pigmentation - Neurologic Present: normal coordination. Absent: disoriented, confused - Additional Findings Voided urine clear Urology Results - Labs 04/16/18 13:29 04/16/18 13:31 Abnormal lab results RBC 3.26 M/mcL (4.19-5.50) L 04/16/18 13:29 Hgb 8.7 g/dL (12.9-16.9) L 04/16/18 13:29 Hct 28.7 % (37.5-50.1) L 04/16/18 13:29 MCH 26.7 pg (28.0-33.3) L 04/16/18 13:29 MCHC 30.3 g/dL (31.6-35.5) L 04/16/18 13:29 RDW 16.2 % (11.5-14.5) H 04/16/18 13:29 Glucose 216 mg/dL (70-105) H 04/16/18 13:31 Lactic Acid 3.4 mmol/L (0.5-2.2) H 04/16/18 17:12 B-Natriuretic Peptide 137 pg/mL (Less than 100) H 04/16/18 13:29 Urine Color Red (Yellow) A 04/16/18 13:50 Urine Clarity Cloudy (Clear) A 04/16/18 13:50 Ur Specific [place] < 1.005 (1.010-1.025) L 04/16/18 13:50 Urine Protein 100 mg/dL (Neg-Trace) H 04/16/18 13:50 Urine Ketones Trace mg/dL (Negative) H 04/16/18 13:50 Urine Blood Large (Negative) H 04/16/18 13:50 Ur Leukocyte Esterase Moderate (Negative) H 04/16/18 13:50 Urine Microscopic RBC TNTC per hpf (0-3) H 04/16/18 13:50 Urine Microscopic WBC 5-15 per hpf (0-3) H 04/16/18 13:50 Ur Squamous Epith Cells Moderate per lpf (None-Few) H 04/16/18 13:50 Ur Culture Indicated? YES (NO) A 04/16/18 13:50 Diabetes panel 04/16/18 Range/Units 13:31 Sodium 137 (136-145) mEq/L Potassium 4.4 (3.5-5.1) mEq/L Chloride 100 (98-107) mEq/L Carbon Dioxide 27 (23-29) mEq/L BUN 13 (8-23) mg/dL Creatinine 0.88 (0.70-1.30) mg/dL Glucose 216 H (70-105) mg/dL Calcium 9.7 (8.6-10.3) mg/dL Calcium panel 04/16/18 Range/Units 13:31 Calcium 9.7 (8.6-10.3) mg/dL Pituitary panel 04/16/18 Range/Units 13:31 Sodium 137 (136-145) mEq/L Potassium 4.4 (3.5-5.1) mEq/L Chloride 100 (98-107) mEq/L Carbon Dioxide 27 (23-29) mEq/L BUN 13 (8-23) mg/dL Creatinine 0.88 (0.70-1.30) mg/dL Glucose 216 H (70-105) mg/dL Calcium 9.7 (8.6-10.3) mg/dL Adrenal panel 04/16/18 Range/Units 13:31 Sodium 137 (136-145) mEq/L Potassium 4.4 (3.5-5.1) mEq/L Chloride 100 (98-107) mEq/L Carbon Dioxide 27 (23-29) mEq/L BUN 13 (8-23) mg/dL Creatinine 0.88 (0.70-1.30) mg/dL Glucose 216 H (70-105) mg/dL Calcium 9.7 (8.6-10.3) mg/dL All other labs normal. Consult Discharge Plan - Plan Referrals: NONE,PCP [Primary Care Provider] -
[2018-04-17 07:32] LABS: Basophils % 0.3 %; Eosinophils # 0.3 K/mcL (0.0-0.6); Eosinophils % 3.2 %; Hemoglobin 8.3 g/dL (12.9-16.9); Immature Granulocytes % 0.3 % (0-4); Lymphocytes # 1.7 K/mcL (0.6-4.6); Lymphocytes % 21.1 %; Mean Corpuscular HGB Conc 29.6 g/dL (31.6-35.5); Mean Corpuscular Hemoglobin 25.8 pg (28.0-33.3); Mean Platelet Volume 10.8 fL (9.4-12.4); Monocytes # 0.6 K/mcL (0.0-1.3); Monocytes % 7.1 %; Neutrophils # 5.4 K/mcL (1.6-8.9); Platelet Count 279 K/mcL (140-400); Red Blood Count 3.22 M/mcL (4.19-5.50); Red Cell Distribution Width 16.1 % (11.5-14.5)
[2018-04-17 07:39] LABS: Prothrombin Time 11.7 Seconds (9.4-12.1)
[2018-04-17 07:42] LABS: Activated Partial Thrombo Time 32.8 Seconds (26.0-36.0)
[2018-04-17 07:52] LABS: BUN/Creatinine Ratio 13 (6-26); Blood Urea Nitrogen 10 mg/dL (8-23); Calcium 9.4 mg/dL (8.6-10.3); Carbon Dioxide 28 mEq/L (23-29); Chloride 105 mEq/L (98-107); Glucose 166 mg/dL (70-105); Osmolality,Calculated 291 (280-300); Potassium 4.1 mEq/L (3.5-5.1); Sodium 139 mEq/L (136-145); eGFR For Non-African Americans > 60 (> 60)
[2018-04-17] MEDS ORDERED: cefTRIAXone 1,000 MG in Water for inj. (sterile) 20 ML 10 ML IVP SCH (09:00)
[2018-04-17] MEDS: Finasteride 5 MG TABLET PO SCH (09:50)
[2018-04-17] MEDS: 0.9 % Sodium Chloride 1,000 ML IVC SCH ×2 (09:57→17:54)
[2018-04-17] MEDS ORDERED: Dextrose Gel 15 GM/37.5 ML TUBE PO PRN ×2 (10:40)
[2018-04-17] MEDS ORDERED: *HR* Dextrose 50 % in Water (Syg) 50 ML SYRINGE IVP PRN (10:40)
[2018-04-17] MEDS ORDERED: D5% in Water 1,000 ML IVC PRN (10:40)
[2018-04-17 11:31] LABS: Hematocrit 27.4 % (37.5-50.1); Hemoglobin 8.2 g/dL (12.9-16.9)
[2018-04-17] MEDS: Insulin LISPRO 300 UNITS/3 ML VIAL SQ SCH ×2 (11:53→18:04)
--- NOTE | 2018-04-17 13:19 | Internal Med Progress Note ---
Hospitalist Progress Note - Encounter Date of Encounter: 04/17/18 Time of Encounter: 10:05 - Subjective Interval History: Pt was seen and assessed at 1005 a.m. Pt states that he is feeling well, but is aware that he will need to stay for anemia and to trend his hemoglobins. He denies fever, chills, nausea, vomiting, diarrhea. He states that his hematuria appears to have cleared up and his urine was clear last. - Exam Vitals: Temp Pulse Resp BP Pulse Ox 98.2 F 77 15 147/73 94 04/17/18 10:10 04/17/18 10:10 04/17/18 10:10 04/17/18 10:10 04/17/18 10:10 Exam: General: Pt resting quietly on bed, no distress. Skin: pwd, no rashes, lesions, redness Neurological: Pt is alert and awake, oriented x 3, Speech is clear, PERRLA, EOMI, no nystagmus, no pronator drift. strength equal x 4 extremities HEENT: mucous mumbranes moist, no conjuctival pallor Neck: supple, no tracheal deviation, no lymphadenopathy, tenderness, no thyromegaly Heart: S1S2 heard without gallops, clicks, murmurs, no bradycardia or tachycardia, pt has no peripheral edema, pedal and radial pulses palpable bilaterally. Lungs: clear throughout without wheezing, rales, or ronchi, respirations are unlabored Abdomen: soft and non tender with bowel sound present, no hepatomegaly. Psych: Normal affect with good eye contact - Assessment and Plan (1) DVT prophylaxis Current Visit: Yes Status: Acute Assessment and Plan: SCDs due to hematuria. (2) Elevated lactic acid level Current Visit: Yes Status: Acute Assessment and Plan: Lactic trended up to 3.4. Order in for repeat. elevated without fever, leukocytosis, tachycardia, or other signs of infection. Urine culture without growth. Unclear etiology, will continue to monitor. (3) Hematuria Current Visit: Yes Status: Acute Assessment and Plan: - Acute on chronic in nature - Etiology unclear, may be related to BPH versus malignancy versus less likely infectious - Patient does follow with urology at [place] - H/H is diminished with a hemoglobin of 8.7. Baseline appears to be 11-14 based on labs obtained this year. Hbg trended down to 8.2 today. Repeat every 6hours x 2. Transfuse if <8mg/dl. type and cross completed. - Patient states he has been off his anticoagulation for approximately 2 weeks. Still takes aspirin, Lisseth - Was scheduled as outpatient to receive cystoscopy Plan - We will type and screen for possible need for transfusion - Obtain coagulation studies - Urology consulted in emergency department - Am labs (4) Atrial fibrillation Current Visit: Yes Status: Chronic Assessment and Plan: Rate controlled. Anticoagulation stopped currently. Pt will need to have some sort of anticoagulation after he is stable. Continue BB. (5) HTN (hypertension) Current Visit: Yes Status: Chronic Assessment and Plan: Well controlled. Continue home medications. (6) IDDM (insulin dependent diabetes mellitus) Current Visit: Yes Status: Chronic Assessment and Plan: Accuchecks achs, SSI, Lantus 20mg qhs. (7) TIA (transient ischemic attack) Current Visit: Yes Status: Chronic Assessment and Plan: Chronic. No deficits. Continue home medications. (8) Anemia Current Visit: Yes Status: Acute Assessment and Plan: Pt with chronic ANGELICA, on Ferrous Sulfate which has been continued. Pt also appears to have blood loss anemia secondary to hematuria. Trending hgb today, it currently appears to be trending down. Pt states that gross hematuria has stopped. Transfuse if < 7. (9) Morbid obesity Current Visit: Yes Status: Chronic Assessment and Plan: BMI 45.4. Encourage lifestyle modifications, weight loss. Diabetic diet. - Time Spent with Patient Total time spent is greater than 50% in coordination of care (as documented) at patient's floor/unit and/or counseling patient: less than 15 minutes Plan of Care Discussed with: patient Internal Medicine: Result - Labs CBC & Chem 7: 04/17/18 11:07 04/17/18 06:22 Labs: Short CBC 04/16/18 04/17/18 04/17/18 Range/Units 13:29 06:22 11:07 WBC 10.2 7.9 (4.3-11.1) K/mcL Hgb 8.7 L 8.3 L 8.2 L (12.9-16.9) g/dL Hct 28.7 L 28.0 L 27.4 L (37.5-50.1) % Plt Count 290 279 (140-400) K/mcL Neutrophils # 7.1 5.4 (1.6-8.9) K/mcL BMP 04/16/18 04/17/18 13:31 06:22 Sodium 137 139 Potassium 4.4 4.1 Chloride 100 105 Carbon Dioxide 27 28 BUN 13 10 Creatinine 0.88 0.75 Glucose 216 H 166 H Calcium 9.7 9.4 Cardiac Enzymes 04/16/18 Range/Units 13:31 Troponin I < 0.03 (< 0.04) ng/mL Urine 04/16/18 Range/Units 13:50 Urine Color Red A (Yellow) Urine Clarity Cloudy A (Clear) Urine pH 6.5 (5.0-8.0) pH Units Ur Specific [place] < 1.005 L (1.010-1.025) Urine Protein 100 H (Neg-Trace) mg/dL Urine Glucose (UA) Normal (Normal) mg/dL - ABG Interpretation ABG results: PT/INR, D-dimer PT 11.7 Seconds (9.4-12.1) 04/17/18 06:22 - Impressions Impressions Chest X-Ray 04/16/18 13:29 IMPRESSION: Mild perihilar peribronchial wall thickening bilaterally-raising the possibility of bronchitis. No evident acute lobar pneumonia. Questionable 12 mm nodule lateral to the left hilum. Recommend repeat PA chest with 5 degree obliques off the PA projection to confirm or exclude. D/ / Cam Hough MD / Cam Hough MD Interpreting Provider: Cam Hough MD Abdomen/Pelvis CT 04/16/18 13:35 IMPRESSION: 1. Layering high density compatible with hemorrhage in the dependent urinary bladder. An underlying bladder neoplasm needs to be excluded. Nonemergent urology consultation recommended. 2. No renal or urinary tract calculus. No hydronephrosis. D/ /16/2018 14:57:53 Jasper Morales MD / maury Interpreting Provider: Jasper Morales MD Consult Discharge Plan - Plan Referrals: NONE,PCP [Primary Care Provider] - (3) Hematuria Qualifiers: Hematuria type: gross Qualified Code(s): R31.0 - Gross hematuria (4) Atrial fibrillation Qualifiers: Atrial fibrillation type: chronic Qualified Code(s): I48.2 - Chronic atrial fibrillation (5) HTN (hypertension) Qualifiers: Hypertension type: essential hypertension Qualified Code(s): I10 - Essential (primary) hypertension (8) Anemia Qualifiers: Anemia type: iron deficiency
[2018-04-17 16:59] LABS: Hematocrit 26.6 % (37.5-50.1)
[2018-04-17] MEDS: Multivit/Ca/Min/Fe/FA 1 TAB TABLET PO SCH (20:31)
[2018-04-17] MEDS: Metoprolol XL (24 HR) Succ 50 MG TAB.ER.24H PO SCH (20:31)
[2018-04-17] MEDS ORDERED: Capsaicin 0.025% 60 GM TUBE TP SCH (21:00)
[2018-04-17] MEDS ORDERED: Insulin DETEMIR 100 UNIT/ML X5UNITS SQ SCH (21:00)
[2018-04-17] MEDS ORDERED: Melatonin 3 MG TABLET PO SCH (21:00)
[2018-04-17] MEDS ORDERED: Insulin LISPRO 300 UNITS/3 ML VIAL SQ SCH (21:00)
[2018-04-17 22:56] LABS: Hematocrit 26.1 % (37.5-50.1); Hemoglobin 7.8 g/dL (12.9-16.9)
[2018-04-18] MEDS: 0.9 % Sodium Chloride 1,000 ML IVC SCH (05:26)
[2018-04-18 06:19] LABS: Basophils % 0.4 %; Eosinophils # 0.3 K/mcL (0.0-0.6); Eosinophils % 4.1 %; Hemoglobin 8.4 g/dL (12.9-16.9); Immature Granulocytes % 0.4 % (0-4); Lymphocytes # 1.7 K/mcL (0.6-4.6); Lymphocytes % 22.4 %; Mean Corpuscular Hemoglobin 25.8 pg (28.0-33.3); Mean Corpuscular Volume 86.2 fL (83.0-100.0); Mean Platelet Volume 10.6 fL (9.4-12.4); Monocytes # 0.6 K/mcL (0.0-1.3); Monocytes % 8.2 %; Neutrophils # 4.9 K/mcL (1.6-8.9); Platelet Count 266 K/mcL (140-400); Red Blood Count 3.25 M/mcL (4.19-5.50); Red Cell Distribution Width 16.2 % (11.5-14.5); Segmented Neutrophils % 64.5 %
[2018-04-18 06:33] VITALS: BP 158/76
[2018-04-18 06:38] LABS: BUN/Creatinine Ratio 12 (6-26); Blood Urea Nitrogen 10 mg/dL (8-23); Calcium 9.4 mg/dL (8.6-10.3); Carbon Dioxide 30 mEq/L (23-29); Chloride 103 mEq/L (98-107); Glucose 180 mg/dL (70-105); Osmolality,Calculated 290 (280-300); Potassium 4.1 mEq/L (3.5-5.1); Sodium 138 mEq/L (136-145); eGFR For Non-African Americans > 60 (> 60)
--- NOTE | 2018-04-18 07:04 | Urology Progress Note ---
Date of Encounter: 04/18/18 Time of Encounter: 07:02 - Assessment and Plan (1) Hematuria Current Visit: Yes Status: Acute Assessment and plan: appears resolving. [facility] or the [facility] can call with any need for our services in the future. Qualifiers: Hematuria type: gross Qualified Code(s): R31.0 - Gross hematuria Progress Note Narrative: patient seen this am. voiding well. urine remaining clear. Objective Initial Vital Signs Temp Pulse Resp BP Pulse Ox 97.8 F 93 18 145/88 98 04/16/18 13:20 04/16/18 13:20 04/16/18 13:20 04/16/18 13:20 04/16/18 13:20 - General physical appearance Present: well developed, well nourished - Abdomen Present: soft. Absent: tender - Labs 04/18/18 05:25 04/18/18 05:25 Diabetes panel 04/17/18 04/18/18 Range/Units 06:22 05:25 Sodium 139 138 (136-145) mEq/L Potassium 4.1 4.1 (3.5-5.1) mEq/L Chloride 105 103 (98-107) mEq/L Carbon Dioxide 28 30 H (23-29) mEq/L BUN 10 10 (8-23) mg/dL Creatinine 0.75 0.83 (0.70-1.30) mg/dL Glucose 166 H 180 H (70-105) mg/dL Calcium 9.4 9.4 (8.6-10.3) mg/dL Calcium panel 04/17/18 04/18/18 Range/Units 06:22 05:25 Calcium 9.4 9.4 (8.6-10.3) mg/dL Pituitary panel 04/17/18 04/18/18 Range/Units 06:22 05:25 Sodium 139 138 (136-145) mEq/L Potassium 4.1 4.1 (3.5-5.1) mEq/L Chloride 105 103 (98-107) mEq/L Carbon Dioxide 28 30 H (23-29) mEq/L BUN 10 10 (8-23) mg/dL Creatinine 0.75 0.83 (0.70-1.30) mg/dL Glucose 166 H 180 H (70-105) mg/dL Calcium 9.4 9.4 (8.6-10.3) mg/dL Adrenal panel 04/17/18 04/18/18 Range/Units 06:22 05:25 Sodium 139 138 (136-145) mEq/L Potassium 4.1 4.1 (3.5-5.1) mEq/L Chloride 105 103 (98-107) mEq/L Carbon Dioxide 28 30 H (23-29) mEq/L BUN 10 10 (8-23) mg/dL Creatinine 0.75 0.83 (0.70-1.30) mg/dL Glucose 166 H 180 H (70-105) mg/dL Calcium 9.4 9.4 (8.6-10.3) mg/dL Consult Discharge Plan - Plan Referrals: NONE,PCP [Primary Care Provider] -
[2018-04-18] MEDS: Insulin LISPRO 300 UNITS/3 ML VIAL SQ SCH (08:03)
[2018-04-18] MEDS: Metoprolol XL (24 HR) Succ 50 MG TAB.ER.24H PO SCH (08:04)
[2018-04-18] MEDS: Multivit/Ca/Min/Fe/FA 1 TAB TABLET PO SCH (08:05)
[2018-04-18] MEDS: Finasteride 5 MG TABLET PO SCH (08:05)
[2018-04-18] MEDS ORDERED: Magnesium Oxide 400 MG TABLET PO SCH (09:00)
[2018-04-18] MEDS ORDERED: Lisinopril 20 MG TABLET PO SCH (09:00)
--- NOTE | 2018-04-18 09:39 | Discharge Summary ---
- NOTES TO OUTPATIENT PROVIDER Notes to Outpatient Provider: Patient was admitted for gross hematuria and anemia down to 8. Resolved by the time he arrived in the ED and did not require any CBI. Likel due to BPH but need to exclude urothelial malignancy. Has existing appointment with [facility] for cystoscopy on 04/19 where he will follow up as outpatient. Aspirin and Xarelto to remain on hold until cystoscopy and patient was started on finasteride per urology. Date of Encounter: 04/18/18 Time of Encounter: 07:30 - Discharge Diagnosis (1) IDDM (insulin dependent diabetes mellitus) Priority: Secondary Status: Chronic (2) DVT prophylaxis Priority: Secondary Status: Acute (3) HTN (hypertension) Priority: Secondary Status: Chronic Qualifiers: Hypertension type: essential hypertension Qualified Code(s): I10 - Essential (primary) hypertension (4) TIA (transient ischemic attack) Priority: Secondary Status: Chronic (5) Atrial fibrillation Priority: Secondary Status: Chronic Qualifiers: Atrial fibrillation type: chronic Qualified Code(s): I48.2 - Chronic atrial fibrillation (6) Hematuria Priority: Primary Status: Acute Qualifiers: Hematuria type: gross Qualified Code(s): R31.0 - Gross hematuria (7) Elevated lactic acid level Priority: Secondary Status: Acute (8) Anemia Priority: Secondary Status: Acute Qualifiers: Anemia type: unspecified type Qualified Code(s): D64.9 - Anemia, unspecified (9) Morbid obesity Priority: Secondary Status: Chronic Hospital course: Mr. Gayle is a 77 year old male with past medical history of atrial fibrillation, COPD, hyperlipidemia, hypertension, TIA who was admitted for gross hematuria and anemia down to 8. Resolved by the time he arrived in the ED and did not require any CBI. Likel due to BPH but need to exclude urothelial mal ignancy. Has existing appointment with [facility] for cystoscopy on 04/19/18 where he will follow up as outpatient. Discharge discussed with: patient, nurse - Time Spent with Patient Total time spent providing and/or coordinating discharge services: 31 mins - Discharge Medications Prescriptions: Finasteride [Proscar] 5 mg PO DAILY #30 tablet Home Medications: Albuterol Sulfate [Ventolin Hfa] 2 puff IH Q4H PRN 12/26/17 [History] Insulin Glargine [Lantus] 48 unit SQ HS 12/26/17 [History] Magnesium Oxide [Magnesium] 200 mg PO DAILY 12/26/17 [History] Vit C/E/Zn/Coppr/Lutein/Zeaxan [Preservision Areds 2 Softgel] 1 cap PO BID 12/26/17 [History] Tiotropium [place] [Spiriva Respimat] 2 puff IH DAILY 01/19/18 [History] Aquaphor 1 appl TP BID 04/17/18 [History] Atorvastatin Calcium [Lipitor] 40 mg PO DAILY 04/17/18 [History] Capsaicin [High Potency Capsaicin] 1 appl TP HS 04/17/18 [History] Ferrous Sulfate 325 mg PO BID 04/17/18 [History] Lisinopril [Zestril] 20 mg PO DAILY 04/17/18 [History] Melatonin [Melatin] 6 mg PO HS 04/17/18 [History] Metformin HCl 1,000 mg PO BID 04/17/18 [History] Metoprolol Succinate [Toprol Xl] 50 mg PO BID 04/17/18 [History] Montelukast [Singulair] 10 mg PO QPM 04/17/18 [History] Omeprazole [PriLOSEC] 20 mg PO DAILY 04/17/18 [History] Finasteride [Proscar] 5 mg PO DAILY #30 tablet 04/18/18 [Rx] Allergies/Adverse Reactions: Allergy/AdvReac Type Severity Reaction Status Date / Time acetaminophen [From Vicodin] Allergy Headache, Verified 04/17/18 12:05 NERVOUSNESS hydrocodone [From Vicodin] Allergy Headache,NE Verified 04/17/18 12:05 RVOUSNESS simvastatin Allergy HEADACHE,NE Verified 04/17/18 12:05 RVOUSNESS Date of admission: 04/16/18 19:37 Primary care physician: PCP NONE Consults: 04/16/18 18:29 Consult to Urology [CONS] Stat Consulting Provider: Urology Christy Reason for Consult: Hematuria Call Completed: No - Constitutional Vitals: Temp Pulse Resp BP Pulse Ox 97.4 F L 66 16 158/76 96 04/18/18 06:28 04/18/18 06:28 04/18/18 06:28 04/18/18 06:28 04/18/18 06:28 Exam: General: not in distress HEENT: mucous membranes moist, no conjunctival pallor Heart: S1S2, no murmur Lungs: clear throughout without wheezing, rales, or rhonchi Abdomen: soft and non tender : Clear urine in the urinal - Patient Status Disposition: Home, Self-Care Condition: Good Functional capacity at discharge: independent ambulation Overall status at discharge: patient is progressing back to baseline - Discharge Instructions Instructions: Anemia (GEN), Atrial Fibrillation (DC) Follow Up With: NONE,PCP [Primary Care Provider] - Additional Instructions: Follow up with [facility] tomorrow for cystoscopy Continue Finasteride ASA and Xarelto to remain on hold - Diet and Activity Activity: resume usual activities as tolerated Diet: diabetic diet
[2018-04-18] MEDS ORDERED: Tiotropium 18 MCG inhalation IH SCH (10:00)
--- NOTE | 2018-04-19 11:33 | Electrocardiograph Report ---
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
== END 2018-04-18 10:34 | disposition home or self-care (01) ==
LOC: EMEROOARM 13:14 → 3ANU 13:14 → SUATTDRO 19:37 → 3ANU 19:56
PROVIDERS: ADMIT Internal Medicine; ATTEND Internal Medicine

== ENCOUNTER 2020-02-05 19:06 | Observation (INO) ==
[2020-02-05] MEDS ORDERED: Naloxone 0.4 MG/ML INJ IVP PRN (21:35)
[2020-02-05] MEDS ORDERED: *HR* Dextrose 50 % in Water (Vial) 50 ML VIAL IVP PRN (21:37)
[2020-02-05] MEDS ORDERED: Dextrose Gel 15 GM/37.5 ML TUBE PO PRN ×2 (21:37)
[2020-02-05] MEDS ORDERED: D5% in Water 1,000 ML IVC PRN (21:37)
[2020-02-05] MEDS: Insulin DETEMIR 100 UNIT/ML X5UNITS SQ SCH (23:08)
[2020-02-06] MEDS: Insulin LISPRO 300 UNITS/3 ML VIAL SQ SCH ×5 (01:14→21:20)
[2020-02-06 05:03] LABS: INR 1.3; Prothrombin Time 14.6 Seconds (9.4-12.1)
[2020-02-06 05:06] LABS: Basophils % 0.4 %; Eosinophils # 0.2 K/mcL (0.0-0.6); Hematocrit 24.7 % (37.5-50.1); Hemoglobin 7.5 g/dL (12.9-16.9); Immature Granulocytes % 0.8 % (0-4); Lymphocytes # 1.5 K/mcL (0.6-4.6); Lymphocytes % 19.3 %; Mean Corpuscular HGB Conc 30.4 g/dL (31.6-35.5); Mean Corpuscular Volume 98.8 fL (83.0-100.0); Mean Platelet Volume 10.1 fL (9.4-12.4); Monocytes # 0.6 K/mcL (0.0-1.3); Monocytes % 8.1 %; Neutrophils # 5.2 K/mcL (1.6-8.9); Platelet Count 252 K/mcL (140-400); Segmented Neutrophils % 69.4 %; White Blood Count 7.5 K/mcL (4.3-11.1)
[2020-02-06 05:18] LABS: BUN/Creatinine Ratio 13 (6-26); Blood Urea Nitrogen 15 mg/dL (8-23); Carbon Dioxide 27 mEq/L (23-29); Chloride 100 mEq/L (98-107); Glucose 204 mg/dL (70-105); Osmolality,Calculated 285 (280-300); Potassium 4.1 mEq/L (3.5-5.1); Sodium 134 mEq/L (136-145); eGFR For African Americans > 60 (> 60); eGFR For Non-African Americans 59 (> 60)
[2020-02-06] MEDS: Tiotropium 18 MCG inhalation IH SCH (08:00)
[2020-02-06] MEDS ORDERED: 0.9 % Sodium Chloride 250 ML ONE (10:28)
[2020-02-06] MEDS: Cholecalciferol (D-3) 1,000 UNIT (25MCG) TABLET PO SCH (10:39)
[2020-02-06] MEDS: Metoprolol XL (24 HR) Succ 50 MG TAB.ER.24H PO SCH ×2 (10:39→21:19)
[2020-02-06] MEDS: Finasteride 5 MG TABLET PO SCH (10:39)
[2020-02-06] MEDS: Aspirin Enteric Coated 81 MG Tablet PO SCH (10:39)
[2020-02-06 17:29] LABS: Hematocrit 29.8 % (37.5-50.1); Hemoglobin 8.9 g/dL (12.9-16.9)
[2020-02-06] MEDS ORDERED: Melatonin 3 MG TABLET PO SCH (21:00)
[2020-02-06] MEDS: Insulin DETEMIR 100 UNIT/ML X5UNITS SQ SCH (21:19)
[2020-02-07] MEDS: Insulin LISPRO 300 UNITS/3 ML VIAL SQ SCH ×3 (01:47→11:44)
[2020-02-07 05:23] LABS: Basophils % 0.5 %; Eosinophils # 0.1 K/mcL (0.0-0.6); Eosinophils % 1.5 %; Hematocrit 28.5 % (37.5-50.1); Hemoglobin 8.6 g/dL (12.9-16.9); Immature Granulocytes % 0.5 % (0-4); Lymphocytes # 1.3 K/mcL (0.6-4.6); Mean Corpuscular HGB Conc 30.2 g/dL (31.6-35.5); Mean Corpuscular Volume 99.3 fL (83.0-100.0); Monocytes # 0.7 K/mcL (0.0-1.3); Monocytes % 8.6 %; Neutrophils # 5.6 K/mcL (1.6-8.9); Platelet Count 258 K/mcL (140-400); Red Blood Count 2.87 M/mcL (4.19-5.50); Red Cell Distribution Width 15.4 % (11.5-14.5); Segmented Neutrophils % 71.9 %; White Blood Count 7.8 K/mcL (4.3-11.1)
[2020-02-07 05:40] LABS: BUN/Creatinine Ratio 14 (6-26); Blood Urea Nitrogen 15 mg/dL (8-23); Calcium 9.1 mg/dL (8.6-10.3); Carbon Dioxide 27 mEq/L (23-29); Chloride 100 mEq/L (98-107); Glucose 203 mg/dL (70-105); Osmolality,Calculated 285 (280-300); Potassium 4.3 mEq/L (3.5-5.1); Sodium 134 mEq/L (136-145); eGFR For African Americans > 60 (> 60); eGFR For Non-African Americans > 60 (> 60)
[2020-02-07] MEDS: Metoprolol XL (24 HR) Succ 50 MG TAB.ER.24H PO SCH (07:53)
[2020-02-07] MEDS: Cholecalciferol (D-3) 1,000 UNIT (25MCG) TABLET PO SCH (07:54)
[2020-02-07] MEDS: Finasteride 5 MG TABLET PO SCH (07:54)
[2020-02-07] MEDS: Aspirin Enteric Coated 81 MG Tablet PO SCH (07:54)
[2020-02-07] MEDS: Tiotropium 18 MCG inhalation IH SCH (10:23)
[2020-02-07 11:09] VITALS: BP 109/56
== END 2020-02-07 15:42 | disposition home or self-care (01) ==
LOC: 3BNU
PROVIDERS: ADMIT Internal Medicine; ATTEND Internal Medicine

== ENCOUNTER 2021-02-21 12:29 | Observation (INO) ==
[2021-02-21] MEDS ORDERED: Isovue-370 500 ML BOTTLE IVP ONE (13:16)
[2021-02-21 14:06] LABS: Calcium 9.3 mg/dL (8.6-10.3); Potassium 4.2 mEq/L (3.5-5.1)
[2021-02-21 14:09] LABS: Troponin I 0.05 ng/mL (< 0.04)
[2021-02-21] MEDS ORDERED: 0.9 % Sodium Chloride 500 ML IVC PRN (14:27)
[2021-02-21 15:11] LABS: Hemoglobin 8.5 g/dL (12.9-16.9); Red Blood Count 3.03 M/mcL (4.19-5.50); White Blood Count 6.4 K/mcL (4.3-11.1)
[2021-02-21 15:12] LABS: Hematocrit 27.6 % (37.5-50.1); Immature Granulocytes % 0.3 % (0-4); Lymphocytes # 0.8 K/mcL (0.6-4.6); Lymphocytes % 12.9 %; Mean Corpuscular HGB Conc 30.8 g/dL (31.6-35.5); Mean Corpuscular Hemoglobin 28.1 pg (28.0-33.3); Mean Corpuscular Volume 91.1 fL (83.0-100.0); Mean Platelet Volume 10.9 fL (9.4-12.4); Monocytes # 0.4 K/mcL (0.0-1.3); Monocytes % 6.2 %; Neutrophils # 5.2 K/mcL (1.6-8.9); Platelet Count 201 K/mcL (140-400); Red Cell Distribution Width 15.4 % (11.5-14.5); Segmented Neutrophils % 80.6 %
[2021-02-21 15:20] LABS: Activated Partial Thrombo Time 39.3 Seconds (26.0-36.0); INR 1.7; Prothrombin Time 19.4 Seconds (9.4-12.1)
[2021-02-21] MEDS ORDERED: Naloxone 0.4 MG/ML INJ IVP PRN (16:04)
[2021-02-21] MEDS ORDERED: Aspirin 325 MG TABLET PO ONE (16:52)
[2021-02-21 18:28] LABS: Troponin I 0.05 ng/mL (< 0.04)
[2021-02-22 05:33] LABS: BUN/Creatinine Ratio 16 (6-26); Blood Urea Nitrogen 20 mg/dL (8-23); Calcium 9.1 mg/dL (8.6-10.3); Carbon Dioxide 27 mEq/L (23-29); Chloride 96 mEq/L (98-107); Glucose 185 mg/dL (70-105); Magnesium 1.6 mg/dL (1.6-2.6); Osmolality,Calculated 279 (280-300); Phosphorous 3.7 mg/dL (2.7-4.5); Potassium 4.2 mEq/L (3.5-5.1); Sodium 131 mEq/L (136-145); eGFR For African Americans > 60 (> 60); eGFR For Non-African Americans 56 (> 60)
[2021-02-22 06:54] VITALS: BP 142/72; PULSE 81; TEMP 98.5; O2SAT 94
== END 2021-02-22 10:38 | disposition home or self-care (01) ==
LOC: EMEROOARM 12:29 → 3BNU 12:29 → SUATTDRO 16:31 → 3BNU 18:00
PROVIDERS: ADMIT Internal Medicine; ATTEND Internal Medicine

== ENCOUNTER 2021-10-24 14:33 | Inpatient (IN) ==
[2021-10-24] MEDS ORDERED: methylPREDNISolone 125 MG/2 ML VIAL IVP ONE (15:47)
[2021-10-24] MEDS ORDERED: Furosemide 40 MG/4 ML VIAL IVP ONE (15:47)
[2021-10-24] MEDS ORDERED: Ipratropium/Albuterol Neb 3 ML IH ONE (15:47)
[2021-10-24] MEDS: Nitroglycerin 0.4 MG TAB.SUBL SL SCH ×2 (16:06→17:34)
[2021-10-24] MEDS ORDERED: Ondansetron 4 MG/2 ML VIAL IVP PRN (17:17)
[2021-10-24] MEDS ORDERED: Melatonin 3 MG TABLET PO PRN (17:17)
[2021-10-24] MEDS ORDERED: Perflutren Lipid Microsphere 1.3 ML in 0.9 % Sodium Chloride 8.7 ML IVP PRN (17:18)
[2021-10-24] MEDS ORDERED: Metoprolol XL (24 HR) Succ 50 MG TAB.ER.24H PO SCH (21:00)
[2021-10-24] MEDS: Apixaban 5 MG TABLET PO SCH (21:59)
[2021-10-25 01:17] LABS: Red Cell Distribution Width 18.9 % (11.5-14.5)
[2021-10-25 01:18] LABS: Basophils % 0.1 %; Eosinophils % 0.1 %; Hematocrit 27.9 % (37.5-50.1); Hemoglobin 8.1 g/dL (12.9-16.9); Immature Granulocytes % 0.5 % (0-4); Lymphocytes # 0.3 K/mcL (0.6-4.6); Lymphocytes % 4.4 %; Mean Corpuscular Hemoglobin 27.5 pg (28.0-33.3); Mean Corpuscular Volume 94.6 fL (83.0-100.0); Mean Platelet Volume 10.3 fL (9.4-12.4); Monocytes % 0.4 %; Neutrophils # 7.4 K/mcL (1.6-8.9); Platelet Count 294 K/mcL (140-400); Red Blood Count 2.95 M/mcL (4.19-5.50); Segmented Neutrophils % 94.5 %; White Blood Count 7.8 K/mcL (4.3-11.1)
[2021-10-25 01:37] LABS: BUN/Creatinine Ratio 14 (6-26); Blood Urea Nitrogen 19 mg/dL (8-23); Calcium 9.5 mg/dL (8.6-10.3); Carbon Dioxide 25 mEq/L (23-29); Chloride 99 mEq/L (98-107); Glucose 315 mg/dL (70-105); Osmolality,Calculated 290 (280-300); Potassium 4.6 mEq/L (3.5-5.1); Sodium 133 mEq/L (136-145); eGFR For African Americans > 60 (> 60); eGFR For Non-African Americans 52 (> 60)
[2021-10-25] MEDS ORDERED: Furosemide 40 MG/4 ML VIAL IVP SCH (09:00)
[2021-10-25] MEDS: Metoprolol XL (24 HR) Succ 50 MG TAB.ER.24H PO SCH ×3 (09:05→19:27)
[2021-10-25] MEDS: Apixaban 5 MG TABLET PO SCH ×2 (09:10→19:27)
[2021-10-25] MEDS ORDERED: *HR* Dextrose 50 % in Water (Syg) 50 ML SYRINGE IVP PRN (10:47)
[2021-10-25] MEDS ORDERED: Dextrose Gel 15 GM/37.5 ML TUBE PO PRN ×2 (10:47)
[2021-10-25] MEDS ORDERED: D5% in Water 1,000 ML IVC PRN (10:47)
[2021-10-25] MEDS ORDERED: Insulin DETEMIR 100 UNIT/ML X5UNITS SUBQ ONE (10:53)
[2021-10-25] MEDS: Insulin LISPRO 300 UNITS/3 ML VIAL SUBQ SCH ×2 (12:52→17:51)
[2021-10-25] MEDS: Insulin DETEMIR 100 UNIT/ML X5UNITS SUBQ SCH (19:27)
[2021-10-26 05:29] LABS: Hematocrit 28.3 % (37.5-50.1); Hemoglobin 8.2 g/dL (12.9-16.9); Mean Corpuscular Hemoglobin 27.7 pg (28.0-33.3); Mean Corpuscular Volume 95.6 fL (83.0-100.0); Mean Platelet Volume 10.1 fL (9.4-12.4); Platelet Count 312 K/mcL (140-400); Red Blood Count 2.96 M/mcL (4.19-5.50); Red Cell Distribution Width 18.6 % (11.5-14.5); White Blood Count 11.1 K/mcL (4.3-11.1)
[2021-10-26 05:47] LABS: Calcium 9.7 mg/dL (8.6-10.3); Potassium 4.9 mEq/L (3.5-5.1)
[2021-10-26] MEDS: Insulin LISPRO 300 UNITS/3 ML VIAL SUBQ SCH ×3 (08:25→17:18)
[2021-10-26] MEDS: Cholecalciferol (D-3) 1,000 UNIT (25MCG) TABLET PO SCH (08:26)
[2021-10-26] MEDS: DilTIAZem CD (24hr) 120 MG CAP.ER.24H PO SCH (08:26)
[2021-10-26] MEDS: Finasteride 5 MG TABLET PO SCH (08:26)
[2021-10-26] MEDS: lisinopriL 5 MG TABLET PO SCH (08:26)
[2021-10-26] MEDS: Apixaban 5 MG TABLET PO SCH ×2 (08:27→20:12)
[2021-10-26] MEDS: Aspirin Enteric Coated 81 MG Tablet PO SCH (08:27)
[2021-10-26] MEDS: Metoprolol XL (24 HR) Succ 50 MG TAB.ER.24H PO SCH ×3 (08:27→20:12)
[2021-10-26] MEDS ORDERED: Furosemide 20 MG/2 ML VIAL IVP SCH (14:45)
[2021-10-26] MEDS: Furosemide 40 MG/4 ML VIAL IVP SCH (17:18)
[2021-10-26] MEDS: Insulin DETEMIR 100 UNIT/ML X5UNITS SUBQ SCH (20:12)
[2021-10-26] MEDS ORDERED: Melatonin 3 MG TABLET PO SCH (21:00)
[2021-10-27 05:26] LABS: Mean Platelet Volume 10.1 fL (9.4-12.4); Red Cell Distribution Width 18.3 % (11.5-14.5)
[2021-10-27 05:28] LABS: Hematocrit 28.1 % (37.5-50.1); Mean Corpuscular HGB Conc 28.5 g/dL (31.6-35.5); Mean Corpuscular Hemoglobin 26.7 pg (28.0-33.3); Mean Corpuscular Volume 93.7 fL (83.0-100.0); Platelet Count 300 K/mcL (140-400); White Blood Count 8.9 K/mcL (4.3-11.1)
[2021-10-27 05:38] LABS: BUN/Creatinine Ratio 22 (6-26); Blood Urea Nitrogen 27 mg/dL (8-23); Calcium 9.9 mg/dL (8.6-10.3); Carbon Dioxide 35 mEq/L (23-29); Chloride 98 mEq/L (98-107); Glucose 138 mg/dL (70-105); Osmolality,Calculated 289 (280-300); Potassium 4.9 mEq/L (3.5-5.1); Sodium 136 mEq/L (136-145); eGFR For African Americans > 60 (> 60); eGFR For Non-African Americans 56 (> 60)
[2021-10-27] MEDS ORDERED: Regadenoson 0.4 MG/5 ML SYRINGE IVP ONE (06:03)
[2021-10-27] MEDS: Insulin LISPRO 300 UNITS/3 ML VIAL SUBQ SCH ×3 (08:52→17:14)
[2021-10-27] MEDS: Apixaban 5 MG TABLET PO SCH (08:59)
[2021-10-27] MEDS ORDERED: Metoprolol XL (24 HR) Succ 50 MG TAB.ER.24H PO SCH (09:00)
[2021-10-27] MEDS: Finasteride 5 MG TABLET PO SCH (09:00)
[2021-10-27] MEDS: lisinopriL 5 MG TABLET PO SCH (09:00)
[2021-10-27] MEDS: Aspirin Enteric Coated 81 MG Tablet PO SCH (09:00)
[2021-10-27] MEDS: DilTIAZem CD (24hr) 120 MG CAP.ER.24H PO SCH (09:00)
[2021-10-27] MEDS: Cholecalciferol (D-3) 1,000 UNIT (25MCG) TABLET PO SCH (09:00)
[2021-10-27] MEDS: Furosemide 40 MG/4 ML VIAL IVP SCH (09:02)
[2021-10-27 10:05] VITALS: BP 109/82; PULSE 102; TEMP 97.5; O2SAT 91
== END 2021-10-27 17:32 | disposition home or self-care (01) | DRG 291 ==
LOC: 3BNU 14:33 → EMEROOARM 14:33 → SUATTDRO 17:46 → 3BNU 19:33
PROVIDERS: ADMIT Student in an Organized Health Care Education/Training Program; ATTEND Internal Medicine